=== PATIENT | female | born 1955 | race Caucasian/White ===

== ENCOUNTER 2020-07-31 09:03 | Day surgery (SDC) | payer MEDICARE, SELFPAY ==
[2020-07-26 10:23] VITALS: BMI 35.2
--- NOTE | 2020-07-26 14:30 | P.CONAN_ITS ---
Documented by User: Elizabet Corrigan 07/26/20 14:34 HPI - Anesthesia Eval Consult details Narrative: 65yo F for colonoscopy: screening PMFSH Past Medical History Medical History Anxiety CAD (coronary artery disease) Depression Elevated cholesterol History of Meniere's syndrome HTN (hypertension) Myocardial infarction On anticoagulant therapy Family History Family History (Updated 07/23/20 @ 09:13 by Rebecca Mehta, RMA, SALES PLANNING COORDINATOR) Father Mesothelioma Kidney stones Mother HTN (hypertension) Diverticulitis Brother HTN (hypertension) Daughter No problems noted. Maternal Grandfather No problems noted. Maternal Grandmother No problems noted. Paternal Grandfather No problems noted. Paternal Grandmother No problems noted. Surgical History Surgical History History of section History of superficial parotidectomy Hx of cardiac catheterization Hx of cholecystectomy Social History Social History Smoking Status: Current every day smoker Years Smoked: 10 Smoked in Last 30 Days: Yes Patient Interested in Nicotine Replacement: No Patient Given Instructions on How to Stop Smoking: No Second Hand Smoke Exposure: No Use of substances other than those prescribed or required for medical reasons: No Advance Directives Information Provided: No Recently lost weight without trying: No Meds Allergies Allergy/AdvReac Type Severity Reaction Status Date / Time oxycodone [OXYCODONE] AdvReac Intermediate SEVERE Verified 07/26/20 10:30 VOMITING Home Medications Medication Instructions Recorded Confirmed Type amlodipine 10 mg PO DAILY 07/26/20 07/26/20 History aspirin [Aspirin Low-Strength] 81 mg PO DAILY 07/26/20 07/31/20 History atorvastatin 80 mg PO DAILY 07/26/20 07/26/20 History citalopram 40 mg PO DAILY 07/26/20 07/31/20 History ezetimibe [Zetia] 10 mg PO DAILY 07/26/20 07/26/20 History ticagrelor [Brilinta] 90 mg PO BID 07/26/20 07/31/20 History Exam Exam Date and Time: July 26, 2020 1430 Height,Weight and Vital Signs: Height 5 ft 3 in Weight 90.265 kg Assessment and Plan Assessment Anesthesia Assessment: Chart Reviewed Documented by User: Ana Cristina De La Garza 07/31/20 11:15 PMFSH Past Medical History Medical History Anxiety CAD (coronary artery disease) Depression Elevated cholesterol History of Meniere's syndrome HTN (hypertension) Myocardial infarction On anticoagulant therapy Family History Family History (Updated 07/23/20 @ 09:13 by Rebecca Mehta, RMA, SALES PLANNING COORDINATOR) Father Mesothelioma Kidney stones Mother HTN (hypertension) Diverticulitis Brother HTN (hypertension) Daughter No problems noted. Maternal Grandfather No problems noted. Maternal Grandmother No problems noted. Paternal Grandfather No problems noted. Paternal Grandmother No problems noted. Family history of problems with anesthesia: No Surgical History Surgical History History of section History of superficial parotidectomy Hx of cardiac catheterization Hx of cholecystectomy History of Problems with Anesthesia: No Social History Social History Smoking Status: Current every day smoker Years Smoked: 10 Smoked in Last 30 Days: Yes Patient Interested in Nicotine Replacement: No Patient Given Instructions on How to Stop Smoking: No Second Hand Smoke Exposure: No Use of substances other than those prescribed or required for medical reasons: No Advance Directives Information Provided: No Recently lost weight without trying: No Meds Allergies Allergy/AdvReac Type Severity Reaction Status Date / Time oxycodone [OXYCODONE] AdvReac Intermediate SEVERE Verified 07/26/20 10:30 VOMITING Home Medications Medication Instructions Recorded Confirmed Type amlodipine 10 mg PO DAILY 07/26/20 07/26/20 History aspirin [Aspirin Low-Strength] 81 mg PO DAILY 07/26/20 07/31/20 History atorvastatin 80 mg PO DAILY 07/26/20 07/26/20 History citalopram 40 mg PO DAILY 07/26/20 07/31/20 History ezetimibe [Zetia] 10 mg PO DAILY 07/26/20 07/26/20 History ticagrelor [Brilinta] 90 mg PO BID 07/26/20 07/31/20 History Exam Height,Weight and Vital Signs: Vital Signs Temp Pulse Resp BP Pulse Ox 07/31/20 10:17 98.1 F 64 16 175/75 H 97 Airway Mallampati Class: II TM Dist: >3cm Neck ROM: Full Partial: Upper Heart: RRR Lungs: CTAB Assessment and Plan Assessment Anesthesia Assessment: Anesthesia Plan Discussed and Chart Reviewed Final Anesthetic Review NPO: Yes ASA Class: III Final Preanesthetic Review: No Changes in Pt Med Stat, Meds/Allgs Chart Reviewed, Consent Obtained/Reviewed and Anes Risks/Benef Reviewed Patient Risk: Intermediate Procedure Risk: Low Anesthetic Plan Anesthetic Plan: MAC: Disposition: Standard PACU
--- NOTE | 2020-07-31 | ECG_ITS ---
Test Reason : CARDIAC HX HTN Blood Pressure : / mmHG Vent. Rate : 058 BPM Atrial Rate : 058 BPM P-R Int : 176 ms QRS Dur : 086 ms QT Int : 422 ms P-R-T Axes : 027 -49 099 degrees QTc Int : 414 ms Sinus bradycardia Left anterior fascicular block Pulmonary disease pattern Nonspecific T wave abnormality Abnormal ECG When compared with ECG of 03-SEP-2016 08:37, Inverted T waves have replaced nonspecific T wave abnormality in Lateral leads Referred By: Elizabet Corrigan Electronically Signed By:KOFFI CABRALES MD
[2020-07-31] MEDS: Lactated Ringers 1,000 ML 100 ML IVCONT (10:16)
[2020-07-31 10:17] VITALS: BP 175/75; PULSE 64; RESP 16; TEMP 36.7; O2SAT 97
[2020-07-31 10:20] VITALS: BMI 35.0
--- NOTE | 2020-07-31 11:37 | PM.PROC ---
Brief Operative Note Date of procedure: 07/31/20 Pre-op diagnosis: colon cancer screening Post-op diagnosis: other (Colon polyps) Procedure: Colonoscopy with HSP x2 ERBE; Cold bx forcep excisional x2--diminutive Anesthesia: MAC (olivia Cr) Surgeon: Gita Gill Estimated blood loss (mL): 10 Pathology: other (Ascending colon polyps--4) Condition: stable Disposition: PACU
[2020-07-31 12:29] VITALS: BP 144/60; PULSE 54; RESP 12; TEMP 36.2; O2SAT 96
[2020-07-31 12:44] VITALS: BP 166/74; PULSE 54; RESP 16; O2SAT 97
[2020-07-31 13:09] VITALS: BP 148/65; PULSE 57; RESP 16; O2SAT 97
--- NOTE | 2020-08-03 11:26 | OP_ITS ---
SURGEON: Gita Gill MD PREOPERATIVE DIAGNOSIS: Screening POSTOPERATIVE DIAGNOSIS: Colonic polyps, multiple in the ascending colon. PROCEDURE PERFORMED: Colonoscopy with hot snare polypectomy x2, cold snare polypectomy x1. ESTIMATED BLOOD LOSS: Less than 10 mL. COMPLICATIONS: No complications. ANESTHESIA: Monitored. ANESTHESIOLOGIST: Roderick Cr CRNA. ASSISTANTS: No financial services assistant. SPECIMENS: 3 polyps removed from ascending colon PREOPERATIVE DIAGNOSES: The patient is a 65-year-old female, who was referred to our office in May of this year for her initial colon cancer screening. The patient has a significant underlying history of coronary artery disease. She has had stenting done. She generally takes Brilinta 90 mg twice daily. She has just recently completed a 10-day course of dexamethasone for acute L/S strain(?). FISH NET STRINGER: Dr. Gill. CONDITION: Postprocedure, stable. FINDINGS: Digital rectal exam revealed no specific lesion. Video colonoscope was introduced without difficulty and navigated through the rectosigmoid and sigmoid on up through descending, transverse, ascending colon into the cecum. Appendiceal orifice area had a limited view due to some residual fluid and fiber. significant amount of flushing and suctioning. Overall due to positioning of the polyps and the prep, the procedure itself was moderately complex. The scope was withdrawn. Anorectal verge was clear. START TIME FOR THE PROCEDURE: 11:42.AM END TIME: 12:22 p.m. The patient will be seen back in the office. 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 This will require a 5-year recall. GRAFT OR IMPLANTS: No grafts or implants. Gita Gill MD MEN/MODL / [id number] MTDPatricia
== END 2020-07-31 14:18 | disposition home or self-care (01) ==
PROVIDERS: PCP Internal Medicine; Visit Provider Internal Medicine Gastroenterology
PROC: 0DJD8ZZ Inspection of Lower Intestinal Tract, Via Natural or Artificial Opening Endoscopic (ICD-10-PCS; CPT 45378; principal; 2020-07-31 10:00)
DX: Z12.11 Encounter for screening for malignant neoplasm of colon (principal); D12.2 Benign neoplasm of ascending colon; I10 Essential (primary) hypertension; I25.10 Atherosclerotic heart disease of native coronary artery without angina pectoris; Z98.61 Coronary angioplasty status; H81.09 Meniere's disease, unspecified ear; E89.2 Postprocedural hypoparathyroidism; Z79.01 Long term (current) use of anticoagulants; Z79.82 Long term (current) use of aspirin; Z79.899 Other long term (current) drug therapy; Z90.49 Acquired absence of other specified parts of digestive tract; F17.210 Nicotine dependence, cigarettes, uncomplicated; Z88.8 Allergy status to other drugs, medicaments and biological substances
CPT/HCPCS: 45385; 88305; 93005

== ENCOUNTER → 2020-08-09 09:25 | Outpatient (BNVA) | payer MEDICARE, SELFPAY | PROVIDERS: PCP Internal Medicine; Referring Provider Internal Medicine; Visit Provider Internal Medicine Cardiovascular Disease | DX: I25.10 Atherosclerotic heart disease of native coronary artery without angina pectoris (principal); I10 Essential (primary) hypertension; Z79.82 Long term (current) use of aspirin; Z79.899 Other long term (current) drug therapy | CPT/HCPCS: 99212 ==

== ENCOUNTER → 2020-08-21 09:03 | Outpatient (BNVA) | payer MEDICARE, SELFPAY | PROVIDERS: PCP Internal Medicine; Referring Provider Internal Medicine; Visit Provider Physician Assistant | DX: D12.2 Benign neoplasm of ascending colon (principal); Z98.890 Other specified postprocedural states | CPT/HCPCS: Q3014 ==

== ENCOUNTER 2020-12-21 14:21 | Outpatient (REF) | payer MEDICARE, SELFPAY ==
[2020-12-21 16:30] LABS: MANUAL DIFF FLAG NO
[2020-12-21 16:40] LABS: Basophils Percent Auto 0.4 % (0-2); Eosinophils Absolute Auto 0.4 X10*3/uL (0.0-0.4); Eosinophils Percent Auto 4.6 % (0-4); Hematocrit 43.3 % (37-47); Hemoglobin 14.3 g/dl (12.0-16.0); Imm Gran Abs Auto 0.04 X10*3/uL (0.00-0.03); Imm Gran Pct Auto 0.5 % (0.0-0.4); Lymphocytes Absolute Auto 2.1 X10*3/uL (1.2-4.9); Lymphocytes Percent Auto 26.6 % (20-40); Mean Corpuscular Hemoglobin 28.8 pg (27.0-33.0); Mean Corpuscular Volume 87.3 fL (80-98); Mean Platelet Volume 9.7 fL (9.4-12.3); Monocytes Absolute Auto 0.4 X10*3/uL (0.1-1.2); Monocytes Percent Auto 4.5 % (2-11); Neutrophils Absolute Auto 5.1 X10*3/uL (2.0-8.3); Neutrophils Percent Auto 63.4 % (45-73); Platelet Count 239 X10*3/uL (160-400); Red Blood Count 4.96 X10*6/uL (4.20-5.50); Red Cell Distribution Width 13.2 % (11.0-16.0)
[2020-12-21 16:48] LABS: Estimated Average Glucose 108 mg/dL; Hemoglobin A1c % 5.4 %
[2020-12-21 17:16] LABS: Alanine Aminotransferase 23 U/L (0-31); Alkaline Phosphatase 40 U/L (39-117); Anion Gap 16 (12-20); Aspartate Amino Transferase 21 U/L (5-31); Bilirubin Total 0.6 mg/dL (0.0-1.0); Blood Urea Nitrogen 9 mg/dL (9-16); Calcium 9.5 mg/dL (8.4-10.2); Carbon Dioxide 26 mmol/L (22-29); Chloride 106 mmol/L (96-108); Estimated Glomerular Filt Rate > 60; Glucose Random 100 mg/dL (60-115); Potassium 3.1 mmol/L (3.3-5.1); Sodium 145 mmol/L (135-145); Total Protein 6.6 g/dL (6.5-8.0)
[2020-12-22 06:42] LABS: LDL Cholesterol Direct 93 mg/dL (<100)
== END 2020-12-21 14:22 | disposition home or self-care (01) ==
LOC: HO.HMGCLDS 14:21
PROVIDERS: PCP Internal Medicine; Visit Provider Internal Medicine
DX: I10 Essential (primary) hypertension (principal); E78.9 Disorder of lipoprotein metabolism, unspecified; F41.8 Other specified anxiety disorders; R73.03 Prediabetes
CPT/HCPCS: 36415; 80053; 83036; 83721; 85025

== ENCOUNTER → 2021-08-12 08:48 | Outpatient (BNVA) | payer MEDICARE, SELFPAY | PROVIDERS: PCP Internal Medicine; Referring Provider Internal Medicine; Visit Provider Internal Medicine Cardiovascular Disease | DX: I25.10 Atherosclerotic heart disease of native coronary artery without angina pectoris (principal); I10 Essential (primary) hypertension | CPT/HCPCS: 93005; 99212 ==

== ENCOUNTER 2022-04-15 08:38 | Outpatient (REF) | payer MEDICARE, SELFPAY ==
[2022-04-15 11:33] LABS: Basophils Percent Auto 0.4 % (0-2); Eosinophils Absolute Auto 0.5 X10*3/uL (0.0-0.4); Eosinophils Percent Auto 6.2 % (0-4); Hemoglobin 14.2 g/dl (12.0-16.0); Imm Gran Abs Auto 0.03 X10*3/uL (0.00-0.03); Imm Gran Pct Auto 0.4 % (0.0-0.4); Lymphocytes Absolute Auto 1.8 X10*3/uL (1.2-4.9); MANUAL DIFF FLAG NO; Mean Corpuscular Hemoglobin 29.3 pg (27.0-33.0); Mean Corpuscular Volume 88.7 fL (80.0-98.0); Mean Platelet Volume 9.9 fL (9.4-12.3); Monocytes Absolute Auto 0.4 X10*3/uL (0.1-1.2); Monocytes Percent Auto 5.2 % (2-11); Neutrophils Absolute Auto 5.3 x10*3/uL (2.0-8.3); Neutrophils Percent Auto 65.8 % (45-73); Platelet Count 242 X10*3/uL (160-400); Red Blood Count 4.85 X10*6/uL (4.20-5.50); Red Cell Distribution Width 13.3 % (11.0-16.0)
[2022-04-15 12:15] LABS: Alanine Aminotransferase 23 U/L (0-31); Alkaline Phosphatase 32 U/L (39-117); Anion Gap 13 (12-20); Aspartate Amino Transferase 19 U/L (5-31); Bilirubin Total 0.7 mg/dL (0.0-1.0); Blood Urea Nitrogen 13 mg/dL (9-16); Calcium 8.9 mg/dL (8.4-10.2); Carbon Dioxide 27 mmol/L (22-29); Chloride 107 mmol/L (96-108); Cholesterol 118 mg/dL; Estimated Glomerular Filt Rate > 60; Glucose Fasting 124 mg/dL (60-99); HDL Cholesterol 35 mg/dL; LDL Cholesterol Calculated 63 mg/dl; Potassium 3.7 mmol/L (3.3-5.1); Sodium 143 mmol/L (135-145); Total Protein 6.4 g/dL (6.5-8.0); Triglycerides 100 mg/dL
[2022-04-15 12:35] LABS: TSH reflex Free T4 1.49 uIU/mL (0.32-4.0)
== END 2022-04-15 08:39 | disposition home or self-care (01) ==
LOC: HO.HMGCLDS 08:38
PROVIDERS: Visit Provider Internal Medicine
DX: E66.9 Obesity, unspecified (principal); E78.9 Disorder of lipoprotein metabolism, unspecified; F41.8 Other specified anxiety disorders; I10 Essential (primary) hypertension; I25.10 Atherosclerotic heart disease of native coronary artery without angina pectoris; R73.03 Prediabetes; R40.0 Somnolence
CPT/HCPCS: 36415; 80053; 80061; 84443; 85025; 86140; 99202

== ENCOUNTER 2022-10-17 09:46 | Outpatient (REF) | payer MEDICARE, SELFPAY ==
[2022-10-17 11:59] LABS: Estimated Average Glucose 114 mg/dL; Hemoglobin A1c % 5.6 %
[2022-10-17 12:01] LABS: Alanine Aminotransferase 15 U/L (0-31); Albumin Level 3.9 g/dL (3.5-5.0); Alkaline Phosphatase 44 U/L (39-117); Anion Gap 14 (12-20); Aspartate Amino Transferase 14 U/L (5-31); Bilirubin Total 0.7 mg/dL (0.0-1.0); Blood Urea Nitrogen 11 mg/dL (9-16); Calcium 9.5 mg/dL (8.4-10.2); Carbon Dioxide 26 mmol/L (22-29); Chloride 107 mmol/L (96-108); Estimated Glomerular Filt Rate > 60; Glucose Random 119 mg/dL (60-115); Potassium 3.5 mmol/L (3.3-5.1); Sodium 143 mmol/L (135-145); Total Protein 6.2 g/dL (6.5-8.0)
== END 2022-10-17 09:47 | disposition home or self-care (01) ==
LOC: HO.HMGCLDS 09:46
PROVIDERS: Internal Medicine; PCP Internal Medicine; Visit Provider Internal Medicine
DX: E66.9 Obesity, unspecified (principal); E78.9 Disorder of lipoprotein metabolism, unspecified; I10 Essential (primary) hypertension; R73.03 Prediabetes
CPT/HCPCS: 36415; 80053; 83036

== ENCOUNTER 2022-10-20 13:41 | Outpatient (REF) | payer MEDICARE, SELFPAY ==
[2022-10-25 03:18] LABS: HPV mRNA E6/E7 rflx Not Detected (Not Detected)
== END 2022-10-20 13:42 | disposition home or self-care (01) ==
LOC: HO.LNP 13:41
PROVIDERS: PCP Internal Medicine; Visit Provider Obstetrics & Gynecology
DX: Z01.419 Encounter for gynecological examination (general) (routine) without abnormal findings (principal); Z11.51 Encounter for screening for human papillomavirus (HPV)
CPT/HCPCS: 87624; 88142

== ENCOUNTER 2022-10-29 08:40 | Outpatient (REF) | payer MEDICARE, SELFPAY ==
--- NOTE | ~2022-10-29 | MM_ITS ---
EXAMINATION: BONE DENSITOMETRY CLINICAL INDICATION: Asymptomatic menopausal state. COMPARISON: This is the patient's baseline examination. TECHNIQUE: Using a [employer] DXA System (software version: 13.1) manufactured by [employer], dual-energy x-ray absorptiometry was performed of the lumbar spine and left hip. The images are of good technical quality. Summary results are attached. FINDINGS: AP SPINE L1-L4: BMD 1.361 g/cm2, Z-score 3.1, T-score 1.5, normal. LEFT FEMUR, NECK: BMD 0.862 g/cm2, Z-score 0.3, T-score -1.3, osteopenia. LEFT FEMUR, TOTAL: BMD 1.069 g/cm2, Z-score 1.8, T-score 0.5, normal. IDENTIFIED RISK FACTORS: Parental hip fracture. Menopause. Current smoker. HISTORY OF FRACTURE: None listed. MEDICATIONS: None listed. MM/XR DEXA axial skeleton IMPRESSION: 1. DIAGNOSIS: Osteopenia based on the lowest T-score value of -1.3 in the femoral neck applying World Health Organization criteria. 2. 10-YEAR FRACTURE RISK PREDICTION, FRAX: Major osteoporotic fracture (clinical spine, forearm, hip or shoulder) 15.5%. Hip fracture 2.9%. 3. Treatment Recommendations: NOF guidelines recommend consideration for treatment in postmenopausal women and men age 50 and older presenting with the following: -A hip or vertebral (clinical or morphometric) fracture. -T-score less than or equal to -2.5 at the femoral neck or spine after appropriate evaluation to exclude secondary causes. -Low bone mass at the hip or spine and a 10-year fracture probability by FRAX of greater than or equal to 3% for hip fracture or greater than or equal to 20% for major osteoporotic fracture based on the [place] adapted WHO algorithm. 4. Other Recommendations: All treatment decisions require clinical judgment and consideration of individual patient factors, including patient preferences, comorbidities, previous drug use, risk factors not captured in the FRAX model (e.g. frailty, falls, vitamin D deficiency, increased bone turnover, interval significant decline in bone density) and possible under or overestimation of fracture risk by FRAX. Additional medical evaluation for secondary cause of low bone mineral density may be appropriate. FUTURE SCAN RECOMMENDATION: People with diagnosed cases of osteoporosis or at high risk for fracture should have regular bone mineral density tests. For patients eligible for Medicare, routine testing is allowed once every 2 years. The testing frequency can be increased to one year for patients who have rapidly progressing disease, those who are receiving or discontinuing medical therapy to restore bone mass, or have additional risk factors.
== END 2022-10-29 08:41 | disposition home or self-care (01) ==
LOC: HO.MAMMO 08:40
PROVIDERS: PCP Internal Medicine; Visit Provider Obstetrics & Gynecology
DX: Z13.820 Encounter for screening for osteoporosis (principal); Z78.0 Asymptomatic menopausal state
CPT/HCPCS: 77080

== ENCOUNTER 2022-11-11 12:40 | Outpatient (REF) | payer MEDICARE, SELFPAY | END 2022-11-11 12:41 | disposition home or self-care (01) | LOC: HO.LNP 12:40 | PROVIDERS: PCP Internal Medicine; Visit Provider Obstetrics & Gynecology | DX: L91.8 Other hypertrophic disorders of the skin (principal); M85.80 Other specified disorders of bone density and structure, unspecified site | CPT/HCPCS: 11200; 56605; 88304; 99212 ==

== ENCOUNTER 2023-04-21 10:58 | Outpatient (AMB) | payer MEDICARE, SELFPAY ==
--- NOTE | 2023-04-21 12:05 | AM.OFFWIN_ITS ---
Intake Vital Signs 04/21/23 12:06 BP 124/70 Blood Pressure Location Lt brachial Position Sitting Pulse 82 Pulse Source Pulse Oximeter Temp 97.6 F Temp Source Temporal Artery Scan Pulse Oximetry (%) 97 Oxygen Delivery Method Room Air Intake Visit Reasons: EP lump on back of ear Intake Note: Pt is here c/o lump on the back of her left ear. Patient Tobacco Use Status: Former Tobacco user Allergies oxycodone [OXYCODONE] Adverse Reaction (Intermediate, Verified 11/11/22 13:00) SEVERE VOMITING Do you need a note to return to daycare/school/sports/work: No HPI EP lump on back of ear HPI Details Patient presents with 2 concerns. The 1st being a tender mass of the posterior left ear which has been present for 2-3 days. She denies fever, chills, symptoms of illness, sore throat, dysphagia, ear pain or drainage. The 2nd issue is a mass in the AC fossa of her right arm which developed after having a blood draw few months ago. She was told to ice it initially however it did not shrink in size. It is nontender it is not grown since and there is no distal vascular changes. [facility], [facility] Medical History Anxiety CAD (coronary artery disease) Depression Elevated cholesterol History of Meniere's syndrome HTN (hypertension) Myocardial infarction On anticoagulant therapy Skin lesion Surgical History History of section History of colonoscopy History of superficial parotidectomy Hx of cholecystectomy Stented coronary artery Family History Father Mesothelioma Kidney stones Mother HTN (hypertension) Diverticulitis Brother HTN (hypertension) Daughter No problems noted. Maternal Grandfather No problems noted. Maternal Grandmother No problems noted. Paternal Grandfather No problems noted. Paternal Grandmother No problems noted. Other Mental health disorder Social History Housing: House Alcohol intake: current Alcohol intake frequency: holidays/special occasions only Patient Tobacco Use Status: Former Tobacco user Tobacco use type: Cigarette Cigarette Packs Per Day: 3 Years Smoked: 10 e-Cigarette/Vaping Use: Never Used Second Hand Smoke Exposure: No service: No Current occupational status: retired Cognitive needs: No Hearing needs: No Vision needs: No Female Reproductive History Menstrual Age of Menarche: 10 Review of Systems Const Reports as per HPI and Reports no additional complaints ENT Reports no additional complaints and Reports as per HPI Card Reports as per HPI and Reports no additional complaints Resp Reports as per HPI and Reports no additional complaints GI Reports as per HPI and Reports no additional complaints Musc Reports no additional complaints and Reports as per HPI Skin/Breast Denies lesions Neuro Reports no additional complaints and Reports as per HPI Physical Exam Vital Signs: Last Vital Signs Temp 97.6 F 04/21/23 12:06 Pulse 82 04/21/23 12:06 BP 124/70 04/21/23 12:06 Pulse Ox 97 04/21/23 12:06 Oxygen Delivery Method Room Air 04/21/23 12:06 Const General: cooperative, comfortable and no acute distress Orientation/consciousness: patient oriented x3 HEENT Head: Yes normal to inspection Ears: hearing grossly normal bilaterally, TM's normal bilaterally, EAC's normal and other (1 cm firm tender area posterior to the ear. No rubor calor or noted pore) General nose exam: Normal external nose present Face and sinus: Yes normal facial exam and Yes sinuses nontender Mouth: Normal oral and palatal mucosa present Throat: Yes posterior oropharynx normal Neck Other: No other adenopathy noted Neck: Yes full ROM, Yes supple and No anterior neck swelling Resp Effort & Inspection: normal respiratory effort Auscultation: clear to auscultation bilaterally Cardio Rate: regular rate Rhythm: regular rhythm Heart sounds: S1 normal heart sound present and S2 normal heart sound present Neuro General: patient oriented x3 Extrem Other: 2 cm rubbery non mobile mass in the right AC fossa nontender no rubor calor General: Yes full ROM, Yes capillary refill normal and Yes normal exam except as noted Assessment & Plan Assessment & Plan (1) Mass of right upper extremity: Code(s): R22.31 - Localized swelling, mass and lump, right upper limb Plan: Mass seems to be vascular in nature question possible hematoma given it occurred immediately after blood draw. Refer to general surgery for eval and possible definitive treatment. (2) Pain of left mastoid: Code(s): H92.02 - Otalgia, left ear Plan: Trial course of antibiotic and can also apply warm compresses. Return to clinic if symptoms do not improve or worsen may need imaging to rule out adenopathy versus abscess. Orders: Referrals General Surgery Referral R22.31 - Localized swelling, mass and lump, right upper limb Medications: New amoxicillin-pot clavulanate 875-125 mg 1 tab PO Q12H 10 days 20 tabs 0RF Coding Level of Care Code Est Pt Level 3 (32195) Diagnoses Mass of right upper extremity R22.31 Pain of left mastoid H92.02
[2023-04-21 12:06] VITALS: BP 124/70; PULSE 82; TEMP 36.4; O2SAT 97
== END 2023-04-21 12:37 | disposition home or self-care (01) ==
PROVIDERS: PCP Internal Medicine; Visit Provider Physician Assistant
DX: R22.31 Localized swelling, mass and lump, right upper limb (principal); H92.02 Otalgia, left ear
CPT/HCPCS: 99213

== ENCOUNTER 2023-05-05 11:22 | Outpatient (AMB) | payer MEDICARE, SELFPAY ==
--- NOTE | 2023-05-05 11:23 | MHC.OFFVIS ---
Intake Vital Signs 05/05/23 11:30 Height 5 ft 3 in Weight 186 lb 2 oz BMI 33.0 BP 133/61 Blood Pressure Location Lt brachial Position Sitting Pulse 80 Intake Visit Reasons: Localized swelling, mass right upper limb Intake Note: Patient is seen in office for evaluation and treatment of a mass right upper limb. Patient c/o: onset for a couple of months, had a blood drawn and since has a lump in the area, denies redness, discharge, pain or other concerns Data Center Solutions Architect Required: No Accompanied by: Self / Same As Patient Allergies oxycodone [OXYCODONE] Adverse Reaction (Intermediate, Verified 05/05/23 11:29) SEVERE VOMITING Medication List - Last Reconciled 05/05/23 by Francis Car MD amlodipine 10 mg PO DAILY 90 days aspirin (Ecotrin Low Strength) 81 mg PO DAILY 90 days atorvastatin 80 mg PO DAILY 90 days citalopram 40 mg PO DAILY ezetimibe 10 mg PO DAILY HPI HPI Comments History of Present Illness Details 67-year-old female patient presenting with an area of swelling in the antecubital fossa right side which developed soon after having a vena puncture. Lesion is been gradually decreasing in size but has not completely resolved. She denies any pain associated with the lesion. She presents today for further evaluation and management. [facility] Medical History Anxiety CAD (coronary artery disease) Depression Elevated cholesterol History of Meniere's syndrome HTN (hypertension) Myocardial infarction On anticoagulant therapy Skin lesion Surgical History History of section History of colonoscopy History of superficial parotidectomy Hx of cholecystectomy Stented coronary artery Family History Father Mesothelioma Kidney stones Mother HTN (hypertension) Diverticulitis Brother HTN (hypertension) Daughter No problems noted. Maternal Grandfather No problems noted. Maternal Grandmother No problems noted. Paternal Grandfather No problems noted. Paternal Grandmother No problems noted. Other Mental health disorder Social History Housing: House Alcohol intake: current Alcohol intake frequency: holidays/special occasions only Patient Tobacco Use Status: Former Tobacco user Tobacco use type: Cigarette Cigarette Packs Per Day: 3 Years Smoked: 10 e-Cigarette/Vaping Use: Never Used Second Hand Smoke Exposure: No service: No Current occupational status: retired Cognitive needs: No Hearing needs: No Vision needs: No Female Reproductive History Menstrual Age of Menarche: 10 Review of Systems Const All systems reviewed & are unremarkable except as noted in HPI and below Denies chills, Denies fever(s), Denies headache(s), Denies poor appetite and Denies weakness ENT Denies headache(s) Card Denies chest pain, Denies irregular heart rhythm, Denies palpitations and Denies dyspnea Resp Denies cough, Denies excessive phlegm production and Denies dyspnea GI Denies abdominal pain, Denies bloating, Denies change in bowel habits, Denies constipation, Denies heartburn, Denies diarrhea, Denies nausea and Denies vomiting Denies urinary frequency Musc Denies back pain, Denies muscle weakness and Denies numbness Skin/Breast Reports as per HPI, Denies changing lesions and Denies unusual bruising Neuro Denies headache(s), Denies numbness, Denies paresthesias and Denies weakness Psych Denies anxiety and Denies depression Endo Denies palpitations Ricardo/Lymph Denies lymphadenopathy Physical Exam Vital Signs: Last Vital Signs Pulse 80 05/05/23 11:30 BP 133/61 05/05/23 11:30 BMI result Body Mass Index 33.0 Const General: cooperative and no acute distress Nutritional Appearance: well nourished Orientation/consciousness: patient oriented x3 Limitations: no limitations HEENT Head: Yes normocephalic and Yes atraumatic Ears: hearing grossly normal bilaterally Resp Effort & Inspection: normal respiratory effort, no audible wheezes, no cough and no respiratory distress Cardio Jugular venous distension: no JVD GI Inspection: Yes normal to inspection Skin Other: Warm, dry, no rash Neuro General: patient oriented x3 Extrem General: Yes no clubbing, cyanosis or edema Elbow/forearm/wrist images: 1. 3.5 x 2 cm lump in the lower antecubital fossa, noncompressible, non pulsatile. Suggestive of a hematoma. No bluish discoloration Assessment & Plan Assessment & Plan (1) Hematoma of arm: Code(s): S40.029A - Contusion of unspecified upper arm, initial encounter Plan 67-year-old female patient presenting with a persistent palpable mass in the right antecubital fossa following a vena puncture. On examination the lesion is firm, noncompressible and nonpulsatile. Findings are suggestive of either a hematoma or a venous pseudoaneurysm. I recommended further evaluation with an ultrasound. If the lesion is indeed a hematoma this would be amenable to evacuation however if the pseudoaneurysm is identified, referral to vascular surgery will be arranged. Orders: Orders US venous duplex UE RT Today S40.029A - Contusion of unspecified upper arm, initial encounter Coding Level of Care Code New Pt Level 4 (46347) Diagnoses Hematoma of arm S40.029A
[2023-05-05 11:30] VITALS: BP 133/61; PULSE 80; BMI 33.0
== END 2023-05-05 11:34 | disposition home or self-care (01) ==
PROVIDERS: PCP Internal Medicine; Referring Provider Physician Assistant; Visit Provider Surgery
DX: S40.021A Contusion of right upper arm, initial encounter (principal)
CPT/HCPCS: 99203

== ENCOUNTER → 2023-05-05 11:22 | Outpatient (BNVA) | payer MEDICARE, SELFPAY | PROVIDERS: PCP Internal Medicine; Referring Provider Physician Assistant; Visit Provider Surgery ==

== ENCOUNTER 2023-05-18 11:18 | Outpatient (REF) | payer MEDICARE, SELFPAY ==
--- NOTE | ~2023-05-18 | US_ITS ---
EXAMINATION: US VENOUS WITH DOPPLER UPPER EXTREMITY, RIGHT CLINICAL INFORMATION: Right upper extremity swelling. COMPARISON: None available. TECHNIQUE: Ultrasound of the upper extremity is performed using compression sonography and color and pulse Doppler flow with assessment of augmentation of flow. There is also imaging and Doppler assessment of the jugular and subclavian veins. Spectral analysis with color-flow imaging is performed. FINDINGS: Respiratory variation, normal compression, and augmented flow are noted throughout the upper extremity including the axillary, brachial, cubital, and radial and ulnar veins. There is normal flow in the internal jugular and subclavian veins. There is no visible deep or superficial thrombophlebitis. A subcutaneous anechoic collection is seen in the right antecubital fossa measuring approximately 6.0 x 1.9 x 2.7 cm. Color Doppler showed no abnormal vascular flow. This appears to surround the biceps tendon that appears intact. US/US venous duplex UE RT IMPRESSION: 1. No evidence for deep venous thrombosis in the visualized veins of the right upper extremity. 2. Right antecubital fossa anechoic collection is nonspecific, but demonstrates benign features. This could represent a resolving hematoma or seroma. Correlate with physical exam. If these findings persist or enlarge, short-term repeat targeted soft tissue ultrasound can be performed as clinically indicated to assess for change.
== END 2023-05-18 11:19 | disposition home or self-care (01) ==
LOC: HO.HMGCX 11:18
PROVIDERS: PCP Internal Medicine; Visit Provider Surgery
DX: S40.021A Contusion of right upper arm, initial encounter (principal); M79.89 Other specified soft tissue disorders
CPT/HCPCS: 93971

== ENCOUNTER 2023-06-30 10:43 | Outpatient (REF) | payer MEDICARE, SELFPAY | END 2023-06-30 10:44 | disposition home or self-care (01) | LOC: HO.MAMMO 10:43 | PROVIDERS: PCP Internal Medicine; Visit Provider Internal Medicine | DX: Z12.31 Encounter for screening mammogram for malignant neoplasm of breast (principal) | CPT/HCPCS: 77063; 77067 ==

== ENCOUNTER → 2023-06-30 11:00 | Outpatient (BNV) | payer MEDICARE, SELFPAY | PROVIDERS: PCP Internal Medicine; Visit Provider Radiology Diagnostic Radiology | DX: Z12.31 Encounter for screening mammogram for malignant neoplasm of breast (principal) | CPT/HCPCS: 77063; 77067 ==

== ENCOUNTER 2023-08-21 13:26 | Outpatient (AMB) | payer MEDICARE, SELFPAY ==
--- NOTE | 2023-08-21 13:28 | MHC.PC.OV ---
Vital Signs 08/21/23 13:36 Height 5 ft 3 in Weight 183 lb BMI 32.4 BP 144/86 H Blood Pressure Location Rt brachial Position Sitting Pulse 85 Pulse Source Pulse Oximeter Pulse Oximetry (%) 95 Oxygen Delivery Method Room Air Intake Visit Reasons: Med review CX 4 month f/u in February Allergies oxycodone [OXYCODONE] Adverse Reaction (Intermediate, Verified 05/05/23 11:29) SEVERE VOMITING Medication List - Last Reconciled 08/21/23 by Gela Patel MD amlodipine 10 mg PO DAILY 90 days aspirin (Ecotrin Low Strength) 81 mg PO DAILY 90 days atorvastatin 80 mg PO DAILY 90 days citalopram 40 mg PO DAILY ezetimibe 10 mg PO DAILY Tobacco use date assessed: 06/24/22 [facility] Med review CX 4 month f/u in February HPI Details Patient is 68-year-old female who was last seen October this Today she is complaining of cold intolerance the past few weeks Ordered TSH level, ferritin level along with Henderson and vitamin levels. She is also due for rest of the labs, to be done fasting She is taking atorvastatin 80 mg, explained to patient that it is important she gets labs done every 4 months and have regular follow-up appointments. If the appointment is not book from this office she should call us to book the appointment. We must monitor side effect of the medications before we can prescribe them. Blood pressure is elevated today she is on amlodipine 10 mg, she is monitoring it at home patient says that it is running around 130 systolic at home. Depression is stable patient is taking citalopram 40 mg BMI is elevated at 32.4 patient is having difficulty losing weight. Follow-up 4 months for physical exam. [facility] Medical History Skin lesion HTN (hypertension) CAD (coronary artery disease) On anticoagulant therapy History of Meniere's syndrome Anxiety Depression Elevated cholesterol Myocardial infarction Surgical History History of colonoscopy Stented coronary artery Hx of cholecystectomy History of superficial parotidectomy History of section Family History Father Mesothelioma Kidney stones Mother HTN (hypertension) Diverticulitis Brother HTN (hypertension) Daughter No problems noted. Maternal Grandfather No problems noted. Maternal Grandmother No problems noted. Paternal Grandfather No problems noted. Paternal Grandmother No problems noted. Other Mental health disorder Social History Housing: House Alcohol intake: current Alcohol intake frequency: holidays/special occasions only Patient Tobacco Use Status: Former Tobacco user Tobacco use type: Cigarette Cigarette Packs Per Day: 3 Years Smoked: 10 e-Cigarette/Vaping Use: Never Used Second Hand Smoke Exposure: No service: No Current occupational status: retired Cognitive needs: No Hearing needs: No Vision needs: No Female Reproductive History Menstrual Age of Menarche: 10 Questionnaire PHQ-9 Over the last 2 weeks, how often have you been bothered by any of the following problems? 1. Little interest or pleasure in doing things: not at all 2. Feeling down, depressed, or hopeless: not at all 3. Trouble falling or staying asleep, or sleeping too much: not at all 4. Feeling tired or having little energy: not at all 5. Poor appetite or overeating: not at all 6. Feeling bad about yourself - or that you are a failure or have let yourself or your family down: not at all 7. Trouble concentrating on things, such as reading the newspaper or watching television: not at all 8. Moving or speaking so slowly that other people could have noticed. Or the opposite - being so fidgety or restless that you have been moving around a lot more than usual: not at all 9. Thoughts that you would be better off or of hurting yourself in some way: not at all Total score: 0 Depression Screening Interpretation: Negative Depression Screening Done: Yes 59710 - PHQ-9 Billing: Yes Source: Developed by Drs. Abad Manuel, Chetna Boudreaux, Dominic Pena and colleagues, with an educational carol from [employer]. Thrive Questionnaire Date Thrive assessed: 08/21/23 I am a: Patient What is your living situation today?: I have a steady place to live Within the past 12 months, did the food you bought not last and you didn't have the money to get more?: Never true Within the past 12 months, did you worry whether your food would run out before you got money to buy more?: Never true Do you have trouble paying for medicines?: No Do you have trouble getting transportation to medical appointments?: No Do you have trouble paying your heating and electricity bill?: No Do you have trouble taking care of your child, family member or friend?: No Do you have trouble with day-to-day activities such as bathing, preparing meals, shopping, managing finances, etc.?: No Are you currently unemployed and looking for a job?: No Are you interested in more education?: No Please select the resources that you would like help with: None Currently or been in a relationship where the following occur: no concerns reported IRVIN-7 AMB Questionnaire IRVIN-7 Date IRVIN - 7 assessed: 08/21/23 Feeling nervous, anxious, or on edge: 0 = Not at all Not being able to stop or control worryin = Not at all Worrying too much about different things: 0 = Not at all Trouble relaxin = Not at all Being so restless that it is hard to sit still: 0 = Not at all Becoming easily annoyed or irritable: 0 = Not at all Feeling afraid as if something awful might happen: 0 = Not at all Total IRVIN-7 score (0-4 normal; 5-9 mild; 10-14 moderate; 15-21 severe): 0 Source: Developed by Drs. Abad Manuel, Chetna Boudreaux, Dominic Pena and colleagues, with an educational carol from [employer]. IRVIN-7 Assessment Billing IRVIN-7 Assessment Tool: IRVIN-7 Assessment 46228 Review of Systems Const Denies chills and Denies fever(s) ENT Denies epistaxis and Denies nasal discharge Card Denies chest pain Resp Denies chest congestion, Denies cough and Denies hemoptysis GI Denies diarrhea and Denies nausea Skin/Breast Denies rash Neuro Reports no additional complaints Psych Reports no additional complaints Endo Reports no additional complaints Physical exam (Primary Care) Vital Signs: Last Vital Signs Pulse 85 08/21/23 13:36 BP 144/86 H 08/21/23 13:36 Pulse Ox 95 08/21/23 13:36 Oxygen Delivery Method Room Air 08/21/23 13:36 BMI result Body Mass Index 32.4 Tobacco/Smoking Status: Tobacco use Status Tobacco use date assessed 06/24/22 08/21/23 13:29 Patient Tobacco Use Status Former Tobacco user 08/21/23 13:29 Tobacco use type Cigarette 08/21/23 13:29 e-Cigarette/Vaping Use Never Used 08/21/23 13:29 Depression Screening Interpretation: Negative Thrive Assessment: Date of Thrive Assessment Date Thrive assessed 12/24/21 08/21/23 13:29 Currently or been in a relationship where the following occur: no concerns reported Const General: cooperative, comfortable and no acute distress Orientation/consciousness: patient oriented x3 HENMT Head: Yes normocephalic Eyes General: appearance normal, both eyes and all related structures Neck Neck: Yes supple Resp Effort & Inspection: normal respiratory effort, no cough and no stridor Cardio Rhythm: regular rhythm Heart sounds: S1 normal heart sound present and S2 normal heart sound present Skin General skin exam: turgor normal Neuro General: patient oriented x3, tone normal and moves all extremities Extrem Right lower extremity: no edema Left lower extremity: no edema Assessment and Plan Assessment & Plan (1) HTN (hypertension): Code(s): I10 - Essential (primary) hypertension Qualifiers: Hypertension type: primary hypertension Qualified Code(s): I10 - Essential (primary) hypertension (2) CAD (coronary artery disease): Code(s): I25.10 - Atherosclerotic heart disease of [place] coronary artery without angina pectoris Qualifiers: Associated angina: without angina Coronary Disease-Associated Artery/Lesion type: [place] artery [place] vs. transplanted heart: [place] heart Qualified Code(s): I25.10 - Atherosclerotic heart disease of [place] coronary artery without angina pectoris (3) Pre-diabetes: Code(s): R73.03 - Prediabetes (4) Major depression, recurrent: Code(s): F33.9 - Major depressive disorder, recurrent, unspecified Qualifiers: Active/Remission status: in full remission Qualified Code(s): F33.42 - Major depressive disorder, recurrent, in full remission (5) Obesity due to excess calories: Code(s): E66.09 - Other obesity due to excess calories Qualifiers: Body mass index: BMI 35.0-35.9 Obesity classification: adult class 2 (BMI 35 - 39.9) Serious obesity comorbidity presence: with serious comorbidity Qualified Code(s): E66.01 - Morbid (severe) obesity due to excess calories; Z68.35 - Body mass index [BMI] 35.0-35.9, adult (6) Lipid disorder: Code(s): E78.9 - Disorder of lipoprotein metabolism, unspecified (7) Cold intolerance: Code(s): R68.89 - Other general symptoms and signs Plan Patient is 68-year-old female who was last seen Rebecca this Today she is complaining of cold intolerance the past few weeks Ordered TSH level, ferritin level along with Henderson and vitamin levels. She is also due for rest of the labs, to be done fasting She is taking atorvastatin 80 mg, explained to patient that it is important she gets labs done every 4 months and have regular follow-up appointments. If the appointment is not book from this office she should call us to book the appointment. We must monitor side effect of the medications before we can prescribe them. Blood pressure is elevated today she is on amlodipine 10 mg, she is monitoring it at home patient says that it is running around 130 systolic at home. Depression is stable patient is taking citalopram 40 mg BMI is elevated at 32.4 patient is having difficulty losing weight. Patient is prediabetic as well Follow-up 4 months for physical exam. Orders: Orders Lipid Panel Today E66.09 - Other obesity due to excess calories, E78.9 - Disorder of lipoprotein metabolism, unspecified, F33.9 - Major depressive disorder, recurrent, unspecified, I10 - Essential (primary) hypertension, I25.10 - Atherosclerotic heart disease of [place] coronary artery without angina pectoris, R73.03 - Prediabetes TSH reflex Free T4 Today E66.09 - Other obesity due to excess calories, E78.9 - Disorder of lipoprotein metabolism, unspecified, F33.9 - Major depressive disorder, recurrent, unspecified, I10 - Essential (primary) hypertension, I25.10 - Atherosclerotic heart disease of [place] coronary artery without angina pectoris, R73.03 - Prediabetes Ferritin Today R68.89 - Other general symptoms and signs Complete Blood Count Auto Diff Today E66.09 - Other obesity due to excess calories, E78.9 - Disorder of lipoprotein metabolism, unspecified, F33.9 - Major depressive disorder, recurrent, unspecified, I10 - Essential (primary) hypertension, I25.10 - Atherosclerotic heart disease of [place] coronary artery without angina pectoris, R73.03 - Prediabetes Comprehensive [place]. Panel Fast Today E66.09 - Other obesity due to excess calories, E78.9 - Disorder of lipoprotein metabolism, unspecified, F33.9 - Major depressive disorder, recurrent, unspecified, I10 - Essential (primary) hypertension, I25.10 - Atherosclerotic heart disease of [place] coronary artery without angina pectoris, R73.03 - Prediabetes Vitamin D 25-OH (D2 and D3) Today R68.89 - Other general symptoms and signs Vitamin B12 Today R68.89 - Other general symptoms and signs Zinc Today R68.89 - Other general symptoms and signs Medications: Refilled aspirin (Ecotrin Low Strength) 81 mg PO DAILY 90 tabs 3RF 90 days atorvastatin 80 mg PO DAILY 90 tabs 0RF 90 days E78.9 - Disorder of lipoprotein metabolism, unspecified citalopram 40 mg PO DAILY 90 tabs 0RF amlodipine 10 mg PO DAILY 90 tabs 0RF 90 days I10 - Essential (primary) hypertension ezetimibe 10 mg PO DAILY 90 tabs 0RF Coding Level of Care Code Est Pt Level 4 (14857) Diagnoses Primary hypertension I10 Hypertension type: primary hypertension Coronary artery disease involving [place] coronary artery of [place] heart without angina pectoris I25.10 Associated angina: without angina Coronary Disease-Associated Artery/Lesion type: [place] artery [place] vs. transplanted heart: [place] heart Pre-diabetes R73.03 Recurrent major depressive disorder, in full remission F33.42 Active/Remission status: in full remission Class 2 severe obesity due to excess calories with serious comorbidity and body mass index (BMI) of 35.0 to 35.9 in adult E66.01; Z68.35 Body mass index: BMI 35.0-35.9 Obesity classification: adult class 2 (BMI 35 - 39.9) Serious obesity comorbidity presence: with serious comorbidity Lipid disorder E78.9 Cold intolerance R68.89 Additional Codes IRVIN-7 Assessment Billing - IRVIN-7 Assessment Tool: IRVIN-7 Assessment 89240 ([id number])
[2023-08-21 13:36] VITALS: BP 144/86; PULSE 85; O2SAT 95; BMI 32.4
== END 2023-08-21 13:59 | disposition home or self-care (01) ==
PROVIDERS: PCP Internal Medicine; Visit Provider Internal Medicine
DX: I10 Essential (primary) hypertension (principal); F33.42 Major depressive disorder, recurrent, in full remission; E66.01 Morbid (severe) obesity due to excess calories; Z68.35 Body mass index [BMI] 35.0-35.9, adult; I25.10 Atherosclerotic heart disease of native coronary artery without angina pectoris; R73.03 Prediabetes; E78.9 Disorder of lipoprotein metabolism, unspecified; R68.89 Other general symptoms and signs
CPT/HCPCS: 99214

== ENCOUNTER 2024-02-04 08:44 | Outpatient (AMB) | payer MEDICARE, SELFPAY ==
--- NOTE | 2024-02-04 09:10 | A.OFFVIS_ITS ---
Vital Signs 02/04/24 09:11 Height 5 ft 3 in Weight 193 lb 1.999 oz BMI 34.2 BP 144/80 H Blood Pressure Location Lt brachial Position Sitting Pulse 65 Pulse Source Monitor Intake Visit Reasons: OVER DUE F/U HEART PALPITATIONS Technology Coach Required: No Allergies oxycodone [OXYCODONE] Adverse Reaction (Intermediate, Verified 02/04/24 09:12) SEVERE VOMITING Medication List - Last Reconciled 02/04/24 by Sheridan Dinero NP-C amlodipine 10 mg PO DAILY 90 days aspirin (Ecotrin Low Strength) 81 mg PO DAILY 90 days atorvastatin 80 mg PO DAILY 90 days citalopram 40 mg PO DAILY ezetimibe 10 mg PO DAILY HPI HPI OVER DUE F/U HEART PALPITATIONS: Details: Concepción is a 68-year-old female with past medical history of hypertension, hyperlipidemia, CAD with prior PCI to the OM and diagonal who presents with report of heart palpitations. Her last prior visit to our office was 08/12/2021. Today she reports that she has been experiencing some panic attacks recently. S he has medication for this but does not feel that it is helping. When she gets an attack she can feel her heart beating very rapidly and things closing in like she may pass out. She has not had any syncope, falls. She does not notice heart palpitations at other times. No chest discomfort at rest or with activity. She has some mild shortness of breath with exertion. She smokes 2 packs of cigarettes per week. No PND, orthopnea or edema. Taking meds as directed. [facility] Medical History (Updated 02/04/24 @ 10:16 by TEMI Colbert) Skin lesion HTN (hypertension) CAD (coronary artery disease) On anticoagulant therapy History of Meniere's syndrome Anxiety Depression Elevated cholesterol Myocardial infarction Surgical History (Updated 02/04/24 @ 10:16 by MANDA ColbertC) History of colonoscopy Stented coronary artery Hx of cholecystectomy History of superficial parotidectomy History of section Family History Father Mesothelioma Kidney stones Mother HTN (hypertension) Diverticulitis Brother HTN (hypertension) Daughter No problems noted. Maternal Grandfather No problems noted. Maternal Grandmother No problems noted. Paternal Grandfather No problems noted. Paternal Grandmother No problems noted. Other Mental health disorder Social History Housing: House Alcohol intake: current Alcohol intake frequency: holidays/special occasions only Patient Tobacco Use Status: Former Tobacco user Tobacco use type: Cigarette Cigarette Packs Per Day: 3 Years Smoked: 10 e-Cigarette/Vaping Use: Never Used Second Hand Smoke Exposure: No service: No Current occupational status: retired Cognitive needs: No Hearing needs: No Vision needs: No Female Reproductive History Menstrual Age of Menarche: 10 Review of Systems Const Details: has geen getting panic attacks All systems reviewed & are unremarkable except as noted in HPI and below ENT Denies dizziness Card Denies chest pain, Denies chest pain at rest, Denies chest pain with activity, Reports rapid heart rate, Denies pedal edema, Denies edema, Denies leg edema, Denies lightheadedness, Denies palpitations, Denies dyspnea, Denies dyspnea on exertion and Denies orthopnea Resp Denies cough, Denies dyspnea and Denies dyspnea on exertion GI Denies hematochezia and Denies change in stool character Musc Denies abnormal gait, Denies limited range of motion, Denies muscle cramps, Denies muscle weakness, Denies numbness, Denies radiating pain into limb, Denies stiffness and Denies tingling Neuro Denies abnormal gait, Denies dizziness, Denies numbness and Denies tingling Endo Denies palpitations Physical Exam Vital Signs: Last Vital Signs Pulse 65 02/04/24 09:11 BP 144/80 H 02/04/24 09:11 BMI result Body Mass Index 34.2 Const General: cooperative, healthy appearing, comfortable and no acute distress Orientation/consciousness: patient oriented x3 Neck Neck: Yes normal visual inspection Resp Effort & Inspection: normal respiratory effort Auscultation: clear to auscultation bilaterally, no rales, no rhonchi and no wheezes Cardio Jugular venous distension: no JVD Rate: regular rate Rhythm: regular rhythm Heart sounds: S1 normal heart sound present, S2 normal heart sound present, no murmurs and no rubs Neuro General: patient oriented x3 Extrem General: Yes normal to inspection, No no pedal edema and No calf tenderness Psych Appearance: grossly normal Mental Status: mental status grossly normal Speech and movement: Normal speech and movement present Office Procedures EKG Details: Normal sinus rhythm, left anterior fascicular block, rate 65, septal Q, QTC 457 millisecond [id number], Complete Assessment & Plan Assessment & Plan (1) CAD (coronary artery disease): Code(s): I25.10 - Atherosclerotic heart disease of [place] coronary artery without angina pectoris Category: Medical Qualifiers: Coronary Disease-Associated Artery/Lesion type: [place] artery [place] vs. transplanted heart: [place] heart Associated angina: without angina Qualified Code(s): I25.10 - Atherosclerotic heart disease of [place] coronary artery without angina pectoris Plan: History of CAD. Prior PCI to the OM and diagonal. She has been on aspirin indefinitely. She is on high-dose atorvastatin and Zetia. She is on amlodipine for blood pressure control. Last prior visit 08/12/2021. At this time she denies having anginal sounding symptoms. She is noticing some heart palpitations when she has what she describes as a panic attack. An EKG done today shows sinus rhythm with left anterior fascicular block, septal Q-wave, ra te 65. Will check an echocardiogram to assess EF, wall motion. Will check a Holter monitor to assess for any arrhythmia. Informed her discuss panic attacks with her PCP. Cardiology follow-up in 4-6 weeks to go over results. Emergency care if needed for symptoms. (2) Stented coronary artery: Comment: status post stenting of the OM and diagonal branch in August 2016 for ACS Code(s): Z95.5 - Presence of coronary angioplasty implant and graft Category: Surgical Plan: As above (3) Palpitation: Code(s): R00.2 - Palpitations Category: Medical Plan: As above (4) HTN (hypertension): Code(s): I10 - Essential (primary) hypertension Category: Medical Qualifiers: Hypertension type: primary hypertension Qualified Code(s): I10 - Essential (primary) hypertension Plan: Mild elevation today. Patient reports some mild anxiety. Continue amlodipine 10 mg daily. Blood pressure will be rechecked at next visit (5) Elevated cholesterol: Code(s): E78.00 - Pure hypercholesterolemia, unspecified Category: Medical Plan: [place] LDL goal less than 70. Last labs in our system 04/15/2022 showed LDL 63. She has been on high-dose atorvastatin and Zetia. She tells me she has an upcoming PCP visit and will request that updated labs be done. (6) Smoker: Code(s): F17.200 - Nicotine dependence, unspecified, uncomplicated Category: Social Hx Plan: Smoking 2 packs per week. Benefits of smoking reduction and cessation reviewed with her. She states full understanding and will continue to work on this. Plan Time spent on chart review, documentation, interview and assessment Orders: Orders CA echo transthorac moreno w con Today I25.10 - Atherosclerotic heart disease of [place] coronary artery without angina pectoris, R00.2 - Palpitations, Z95.5 - Presence of coronary angioplasty implant and graft ECG 3 day holter monitor Today R00.2 - Palpitations Coding Level of Care Code Est Pt Level 4 (01101) Diagnoses Coronary artery disease involving [place] coronary artery of [place] heart without angina pectoris I25.10 Coronary Disease-Associated Artery/Lesion type: [place] artery [place] vs. transplanted heart: [place] heart Associated angina: without angina Stented coronary artery Z95.5 Palpitation R00.2 Primary hypertension I10 Hypertension type: primary hypertension Elevated cholesterol E78.00 Smoker F17.200 CPT Codes EKG - CPT: 63361-[id number], Complete ([id number]) Time Spent (min) 28
[2024-02-04 09:11] VITALS: BP 144/80; PULSE 65; BMI 34.2
== END 2024-02-04 09:33 | disposition home or self-care (01) ==
PROVIDERS: PCP Internal Medicine; Visit Provider Nurse Practitioner Family
DX: I25.10 Atherosclerotic heart disease of native coronary artery without angina pectoris (principal); Z95.5 Presence of coronary angioplasty implant and graft; R00.2 Palpitations; I10 Essential (primary) hypertension; E78.00 Pure hypercholesterolemia, unspecified; F17.200 Nicotine dependence, unspecified, uncomplicated
CPT/HCPCS: 93010; 99214

== ENCOUNTER → 2024-02-04 08:44 | Outpatient (BNVA) | payer MEDICARE, SELFPAY | PROVIDERS: PCP Internal Medicine; Visit Provider Nurse Practitioner Family | DX: I25.10 Atherosclerotic heart disease of native coronary artery without angina pectoris (principal); I10 Essential (primary) hypertension; R00.2 Palpitations; E78.00 Pure hypercholesterolemia, unspecified; F17.210 Nicotine dependence, cigarettes, uncomplicated; Z95.5 Presence of coronary angioplasty implant and graft | CPT/HCPCS: 93005; 99212 ==

== ENCOUNTER → 2024-03-10 12:42 | Outpatient (REF) | payer MEDICARE, SELFPAY ==
--- NOTE | 2024-03-10 12:47 | HM_ITS ---
Conclusion: 1. Patient was monitored for total period of 3 days 2. Baseline was normal sinus rhythm with average heart of 68 beats per minute 3. No significant pauses noted 4. Occasional PVCs noted 5. Patient marked 1 event correlating with sinus rhythm MTDD
--- NOTE | 2024-03-10 12:47 | CA_ITS ---
Transthoracic Echocardiogram Patient (Last, First, Middle): Concepcóin Dupree R Gender: Female Date of : 1955 Age: 68 Procedure Date: 03/10/2024 Procedure Type: Transthoracic Echocardiogram Location: OP Height: 160.02 cm Weight: 83.92 kg BSA: 1.87 m2 Heart Rate: bpm BP: 140 / 76 mmHg Hot Kettle Tender: TO Referring MD: Sheridan Dinero [employer] MEMBER[employer]omo Cigarette Maker: Umesh Bird MD Symptoms: R00.2 - Palpitations Study Quality: Fair/Contrast ECG Rhythm: Sinus Conclusions: - Normal LV ejection fraction 60-65% with grade 1 diastolic dysfunction Findings Procedure Information Contrast agent, definity, is being given per protocol without apparent complications. Left Ventricle Normal left ventricular size, thickness, and systolic function. The visually estimated ejection fraction is between 60-65%. Spectral Doppler is indicative of an impaired relaxation filling pattern. E/E prime ratio is <8, consistent with normal filling pressures. Evidence suggests grade I (mild) diastolic dysfunction. There is mild septal asymmetric hypertrophy. Measurements 2D Linear Measurements IVSd: 1.22 0.6-0.9/0.6-1.0 cm LVIDd: 4.29 3.9-5.3/4.2-5.9 cm LVIDd Index: 2.29 2.4-3.2/2.2-3.1 cm/m2 LVIDs: 3.11 2.0-3.6 cm LVPWd: 1.01 0.7-1.1 cm LV Mass: 206.14 67-162/88-224 g LV Mass Index: 110.24 43-95/49-115 g/m2 LVOT Diam: 2.10 3.0+(-)1.3 cm 2D Systolic Function EF 4C: 62.20 >55% EF 2C: 57.50 >55% EF BiP: 59.70 >55% Mitral Valve MV Pk E: 0.49 MV PK A: 0.92 MV Decel Time: 226.00 E/A: 0.50 E'Lateral: 7.07 E'Medial: 6.09 E/E' Med: 8.00 E/E' Lat: 6.90 PHT: 66.00 MVA PHT: 3.33 Decel [place]: 2.16 LVOT LVOT Pk Alexey: 0.84 LVOT Mn Alexey: 0.59 LVOT VTI: 0.17 LVOT Pk Grad: 3.00 LVOT Mn Grad: 2.00 LVOT Diam: 2.10 LVOT Area: 3.46 Diastolic Function MV Pk E: 0.49 MV Pk A: 0.92 E/A: 0.50 E'Medial: 6.09 E/E' Med: 8.00 E' Laterial: 7.07 E/E' Lat: 6.90 Tricuspid Valve RA Press: 3.00 Updated in Other Vendor System with Status of Final Umesh Bird MD electronically signed on 03/10/2024 2:33:27 PM with status of Final
== END ==
LOC: HO.CARD 12:42
PROVIDERS: PCP Internal Medicine; Visit Provider Nurse Practitioner Family
DX: R00.2 Palpitations (principal); I25.10 Atherosclerotic heart disease of native coronary artery without angina pectoris; Z95.5 Presence of coronary angioplasty implant and graft
CPT/HCPCS: 93242; 93308; Q9957

== ENCOUNTER → 2024-03-10 12:47 | Outpatient (BNV) | payer MEDICARE, SELFPAY | PROVIDERS: PCP Internal Medicine; Visit Provider Internal Medicine Cardiovascular Disease | DX: I49.3 Ventricular premature depolarization (principal) | CPT/HCPCS: 93244; 93308; 93321 ==

== ENCOUNTER 2024-03-17 13:26 | Outpatient (AMB) | payer MEDICARE, SELFPAY ==
[2024-03-17 13:28] VITALS: BP 152/80; PULSE 83; BMI 34.1
--- NOTE | 2024-03-17 13:28 | A.OFFVIS_ITS ---
Vital Signs 03/17/24 13:28 Height 5 ft 3 in Weight 192 lb 10.944 oz BMI 34.1 BP 152/80 H Blood Pressure Location Lt brachial Position Sitting Pulse 83 Pulse Source Pulse Oximeter Intake Visit Reasons: 6 wk follow up/ echo/ holter Facilities Maintenance Manager Required: No Allergies oxycodone [OXYCODONE] Adverse Reaction (Intermediate, Verified 03/17/24 13:30) SEVERE VOMITING Medication List - Last Reconciled 03/18/24 by Sheridan Dinero NP-C amlodipine 10 mg PO DAILY 90 days aspirin (Ecotrin Low Strength) 81 mg PO DAILY 90 days atorvastatin 80 mg PO DAILY 90 days citalopram 40 mg PO DAILY ezetimibe 10 mg PO DAILY HPI HPI 6 wk follow up/ echo/ holter: Details: Concepción is a 68-year-old female with past medical history of hypertension, hyperlipidemia, CAD with prior PCI to the OM and diagonal who reported heart palpitations and underwent an echocardiogram and Holter monitor and now presents for follow-up. Today she reports that she has been having less heart palpitations then what was previously reported. She relates some of this to panic attacks. When she gets an attack she can feel her heart beating very rapidly and things closing in like she may pass out. She has not had any syncope, falls. She does not notice heart palpitations at other times. No chest discomfort at rest or with activity. She has some mild shortness of breath with exertion. She smokes 2 packs of cigarettes per week. No PND, orthopnea or edema. Taking meds as directed. [facility] Medical History Skin lesion HTN (hypertension) CAD (coronary artery disease) On anticoagulant therapy History of Meniere's syndrome Anxiety Depression Elevated cholesterol Myocardial infarction Surgical History History of colonoscopy Stented coronary artery Hx of cholecystectomy History of superficial parotidectomy History of section Family History Father Mesothelioma Kidney stones Mother HTN (hypertension) Diverticulitis Brother HTN (hypertension) Daughter No problems noted. Maternal Grandfather No problems noted. Maternal Grandmother No problems noted. Paternal Grandfather No problems noted. Paternal Grandmother No problems noted. Other Mental health disorder Social History Housing: House Alcohol intake: current Alcohol intake frequency: holidays/special occasions only Patient Tobacco Use Status: Former Tobacco user Tobacco use type: Cigarette Cigarette Packs Per Day: 3 Years Smoked: 10 e-Cigarette/Vaping Use: Never Used Second Hand Smoke Exposure: No service: No Current occupational status: retired Cognitive needs: No Hearing needs: No Vision needs: No Female Reproductive History Menstrual Age of Menarche: 10 Review of Systems Const All systems reviewed & are unremarkable except as noted in HPI and below ENT Denies dizziness Card Details: occassional heart palpitations Denies chest pain, Denies chest pain at rest, Denies chest pain with activity, Denies rapid heart rate, Denies pedal edema, Denies edema, Denies leg edema, Denies lightheadedness, Denies palpitations, Denies dyspnea, Denies dyspnea on exertion and Denies orthopnea Resp Denies cough, Denies dyspnea and Denies dyspnea on exertion GI Denies hematochezia and Denies change in stool character Musc Denies abnormal gait, Denies limited range of motion, Denies muscle cramps, Denies muscle weakness, Denies numbness, Denies radiating pain into limb, Denies stiffness and Denies tingling Neuro Denies abnormal gait, Denies dizziness, Denies numbness and Denies tingling Endo Denies palpitations Physical Exam Vital Signs: Last Vital Signs Pulse 83 03/17/24 13:28 BP 152/80 H 03/17/24 13:28 BMI result Body Mass Index 34.1 Const General: cooperative, healthy appearing, comfortable and no acute distress Orientation/consciousness: patient oriented x3 Neck Neck: Yes normal visual inspection Resp Effort & Inspection: normal respiratory effort Auscultation: clear to auscultation bilaterally, no rales, no rhonchi and no wheezes Cardio Jugular venous distension: no JVD Rate: regular rate Rhythm: regular rhythm Heart sounds: S1 normal heart sound present, S2 normal heart sound present, no murmurs and no rubs Neuro General: patient oriented x3 Extrem General: Yes normal to inspection, No no pedal edema and No calf tenderness Psych Appearance: grossly normal Mental Status: mental status grossly normal Speech and movement: Normal speech and movement present Assessment & Plan Assessment & Plan (1) Palpitation: Code(s): R00.2 - Palpitations Category: Medical Plan: She is reporting heart palpitations that occur when having feelings like a panic attack. An EKG done last visit shows sinus rhythm with left anterior fascicular block, septal Q-wave, rate 65. Echocardiogram done 03/10/2024 shows EF 60-65%, grade 1 diastolic dysfunction. Holter monitor done 03/10/2024 for 3 days shows sinus rhythm with average heart rate 68, occasional PVCs, symptoms correlated with sinus rhythm. Test results reviewed with her in detail. Offered reassurance. She tells me her palpitations have lessened. Informed her discuss panic attacks with her PCP. Cardiology follow-up 1 year, sooner if needed (2) CAD (coronary artery disease): Code(s): I25.10 - Atherosclerotic heart disease of [place] coronary artery without angina pectoris Category: Medical Qualifiers: Associated angina: without angina Coronary Disease-Associated Artery/Lesion type: [place] artery [place] vs. transplanted heart: [place] heart Qualified Code(s): I25.10 - Atherosclerotic heart disease of [place] coronary artery without angina pectoris Plan: History of CAD. Prior PCI to the OM and diagonal. She has been on aspirin indefinitely. She is on high-dose atorvastatin and Zetia. She is on amlodipine for blood pressure control. She was not seen in the office between 08/12/2021 and 02/04/2024. At this time she denies having anginal sounding symptoms. Blood pressure initially elevated this visit and improved on recheck. Continue current med management. Reviewed low-salt diet, need for good blood pressure and cholesterol control, weight loss, exercise as tolerated. Emergency care if ever needed for symptoms. (3) Stented coronary artery: Comment: status post stenting of the OM and diagonal branch in August 2016 for ACS Code(s): Z95.5 - Presence of coronary angioplasty implant and graft Category: Surgical Plan: As above (4) HTN (hypertension): Code(s): I10 - Essential (primary) hypertension Category: Medical Qualifiers: Hypertension type: primary hypertension Qualified Code(s): I10 - Essential (primary) hypertension Plan: Mild elevation today. Recheck done by me 140/72. Patient reports some mild anxiety in the office. She has an upcoming appointment with her PCP. Blood pressure can be rechecked at that time. If blood pressure remains elevated additional antihypertensive agent recommended. With her pre diabetes would recommend use of Mihir/Arb. Continue amlodipine 10 mg daily. (5) Elevated cholesterol: Code(s): E78.00 - Pure hypercholesterolemia, unspecified Category: Medical Plan: [place] LDL goal less than 70. Last labs in our system 04/15/2022 showed LDL 63. She has been on high-dose atorvastatin and Zetia. She tells me she has an upcoming PCP visit and will request that updated labs be done. (6) Smoker: Code(s): F17.200 - Nicotine dependence, unspecified, uncomplicated Category: Social Hx Plan: Smoking 2 packs per week. Benefits of smoking reduction and cessation reviewed with her. She states full understanding and will continue to work on this. Plan Time spent on chart review, documentation, interview and assessment Coding Level of Care Code Est Pt Level 4 (51112) Diagnoses Palpitation R00.2 Coronary artery disease involving [place] coronary artery of [place] heart without angina pectoris I25.10 Associated angina: without angina Coronary Disease-Associated Artery/Lesion type: [place] artery [place] vs. transplanted heart: [place] heart Stented coronary artery Z95.5 Primary hypertension I10 Hypertension type: primary hypertension Elevated cholesterol E78.00 Smoker F17.200 Time Spent (min) 28
== END 2024-03-17 13:57 | disposition home or self-care (01) ==
PROVIDERS: PCP Internal Medicine; Visit Provider Nurse Practitioner Family
DX: R00.2 Palpitations (principal); I25.10 Atherosclerotic heart disease of native coronary artery without angina pectoris; Z95.5 Presence of coronary angioplasty implant and graft; I10 Essential (primary) hypertension; E78.00 Pure hypercholesterolemia, unspecified; F17.200 Nicotine dependence, unspecified, uncomplicated
CPT/HCPCS: 99214

== ENCOUNTER → 2024-03-17 13:26 | Outpatient (BNVA) | payer MEDICARE, SELFPAY | PROVIDERS: PCP Internal Medicine; Visit Provider Nurse Practitioner Family | DX: R00.2 Palpitations (principal); I25.10 Atherosclerotic heart disease of native coronary artery without angina pectoris; I10 Essential (primary) hypertension; E78.00 Pure hypercholesterolemia, unspecified; F17.210 Nicotine dependence, cigarettes, uncomplicated; Z95.5 Presence of coronary angioplasty implant and graft | CPT/HCPCS: 99212 ==

== ENCOUNTER 2024-04-20 13:46 | Outpatient (AMB) | payer MEDICARE, SELFPAY ==
[2024-04-20 13:49] VITALS: BP 140/86; PULSE 85; O2SAT 97; BMI 34.5
--- NOTE | 2024-04-20 13:49 | MHC.PC.OV ---
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 Required: No Accompanied by: Self / Same As Patient Allergies oxycodone [OXYCODONE] Adverse Reaction (Intermediate, Verified 04/20/24 13:49) SEVERE VOMITING Medication List - Last Reconciled 04/20/24 by Gela Patel MD aspirin (Ecotrin Low Strength) 81 mg PO DAILY 90 days atorvastatin 80 mg PO DAILY 90 days citalopram 40 mg PO DAILY ezetimibe 10 mg PO DAILY Tobacco use date assessed: 04/20/24 Fall risk assessment: No Falls in past year Last assessed Fall Risk: 04/20/24 Dental Screening Dental Screen Date: 04/20/24 Did you have a dental visit in the last 12 months?: Yes Did you have a dental problem in the last 6 months where you did not have access to dental care?: No Was dental information given to patient?: Patient has dentist HPI 8 Month F/U HPI Details Patient is 68-year-old female came in today for her regular follow-up appointment Patient has been seeing real estate teacher as she continued to have palpitations She had extended Holter monitor done, would reviewed Patient have occasional PVCs without any symptoms Her blood pressure is 140/86 it was elevated in March as well She is on amlodipine 10 mg I am stopping that Instead I am starting her on atenolol 50 mg daily Patient is to monitor her blood pressure at home and get back to me in 2 weeks with blood pressure readings. She is also due for labs, to be done fasting Continue atorvastatin 80 mg daily Depression is stable patient is taking citalopram 40 mg BMI is elevated , patient is aware and is trying to lose weight Patient is prediabetic as well Follow-up 3 months [facility] Medical History Skin lesion HTN (hypertension) CAD (coronary artery disease) On anticoagulant therapy History of Meniere's syndrome Anxiety Depression Elevated cholesterol Myocardial infarction Surgical History History of colonoscopy Stented coronary artery Hx of cholecystectomy History of superficial parotidectomy History of section Family History Father Mesothelioma Kidney stones Mother HTN (hypertension) Diverticulitis Brother HTN (hypertension) Daughter No problems noted. Maternal Grandfather No problems noted. Maternal Grandmother No problems noted. Paternal Grandfather No problems noted. Paternal Grandmother No problems noted. Other Mental health disorder Social History Housing: House Alcohol intake: current Alcohol intake frequency: holidays/special occasions only Patient Tobacco Use Status: Current everyday Tobacco user Tobacco use type: Cigarette Cigarettes Per Day: 2 Years Smoked: 10 Packs Per Year: 30 Packs per year/per ci.00 e-Cigarette/Vaping Use: Never Used Second Hand Smoke Exposure: No service: No Current occupational status: retired Cognitive needs: No Hearing needs: No Vision needs: No Female Reproductive History Menstrual Age of Menarche: 10 Questionnaire PHQ-9 Over the last 2 weeks, how often have you been bothered by any of the following problems? 1. Little interest or pleasure in doing things: not at all 2. Feeling down, depressed, or hopeless: not at all 3. Trouble falling or staying asleep, or sleeping too much: not at all 4. Feeling tired or having little energy: not at all 5. Poor appetite or overeating: not at all 6. Feeling bad about yourself - or that you are a failure or have let yourself or your family down: not at all 7. Trouble concentrating on things, such as reading the newspaper or watching television: not at all 8. Moving or speaking so slowly that other people could have noticed. Or the opposite - being so fidgety or restless that you have been moving around a lot more than usual: not at all 9. Thoughts that you would be better off or of hurting yourself in some way: not at all Total score: 0 Depression Screening Interpretation: Negative Depression Screening Done: Yes 52603 - PHQ-9 Billing: Yes Source: Developed by Drs. Abad Manuel, Chetna Boudreaux, Dominic Pena and colleagues, with an educational carol from [employer]. Thrive Questionnaire Date Thrive assessed: 04/20/24 I am a: Patient What is your living situation today?: I have a steady place to live Within the past 12 months, did the food you bought not last and you didn't have the money to get more?: Never true Within the past 12 months, did you worry whether your food would run out before you got money to buy more?: Never true Do you have trouble paying for medicines?: No Do you have trouble getting transportation to medical appointments?: No Do you have trouble paying your heating and electricity bill?: No Do you have trouble taking care of your child, family member or friend?: No Do you have trouble with day-to-day activities such as bathing, preparing meals, shopping, managing finances, etc.?: No Are you currently unemployed and looking for a job?: No Are you interested in more education?: No Please select the resources that you would like help with: Housing/Retirement Currently or been in a relationship where the following occur: No concerns reported THRIVE Score: 0 AUDIT C Alcohol Use Questionnaire (AUDIT-C) 1. How often do you have a drink containing alcohol?: Monthly or less 2. How many drinks containing alcohol do you have on a typical day when you are drinking?: 1 or 2 3. How often do you have six or more drinks on one occasion?: Never Total Score: 1 Score Reviewed/Action Taken: Yes IRVIN-7 AMB Questionnaire IRVIN-7 Date IRVIN - 7 assessed: 04/20/24 Feeling nervous, anxious, or on edge: 1 = Several days Not being able to stop or control worryin = Several days Worrying too much about different things: 1 = Several days Trouble relaxin = Several days Being so restless that it is hard to sit still: 0 = Not at all Becoming easily annoyed or irritable: 0 = Not at all Feeling afraid as if something awful might happen: 1 = Several days Total IRVIN-7 score (0-4 normal; 5-9 mild; 10-14 moderate; 15-21 severe): 5 Source: Developed by Drs. Abad Manuel, Chetna Boudreaux, Dominic Pena and colleagues, with an educational carol from [employer] IRVIN-7 Assessment Billing IRVIN-7 Assessment Tool: IRVIN-7 Assessment 71443 Review of Systems Const Denies chills and Denies fever(s) ENT Denies epistaxis and Denies nasal discharge Card Denies chest pain Resp Denies chest congestion, Denies cough and Denies hemoptysis GI Denies diarrhea and Denies nausea Skin/Breast Denies rash Neuro Reports no additional complaints Psych Reports no additional complaints Endo Reports no additional complaints Physical exam (Primary Care) Vital Signs: Last Vital Signs Pulse 85 04/20/24 13:49 BP 140/86 H 04/20/24 13:49 Pulse Ox 97 04/20/24 13:49 BMI result Body Mass Index 34.5 Tobacco/Smoking Status: Tobacco use Status Tobacco use date assessed 04/20/24 04/20/24 13:51 Patient Tobacco Use Status Current everyday Tobacco 04/20/24 13:54 Tobacco use type Cigarette 04/20/24 13:51 e-Cigarette/Vaping Use Never Used 04/20/24 13:51 PHQ-9: PHQ-9 Score PHQ-9: Total score 0 04/20/24 13:51 Depression Screening Interpretation: Negative Thrive Assessment: Date of Thrive Assessment Date Thrive assessed 04/20/24 04/20/24 13:51 Currently or been in a relationship where the following occur: No concerns reported Const General: cooperative, comfortable and no acute distress Orientation/consciousness: patient oriented x3 HENMT Head: Yes normocephalic Eyes General: appearance normal, both eyes and all related structures Neck Neck: Yes supple Resp Effort & Inspection: normal respiratory effort, no cough and no stridor Cardio Rhythm: regular rhythm Heart sounds: S1 normal heart sound present and S2 normal heart sound present Skin General skin exam: turgor normal Neuro General: patient oriented x3, tone normal and moves all extremities Extrem Right lower extremity: no edema Left lower extremity: no edema Assessment and Plan Assessment & Plan (1) HTN (hypertension): Code(s): I10 - Essential (primary) hypertension Qualifiers: Hypertension type: primary hypertension Qualified Code(s): I10 - Essential (primary) hypertension (2) CAD (coronary artery disease): Code(s): I25.10 - Atherosclerotic heart disease of [place] coronary artery without angina pectoris Qualifiers: Coronary Disease-Associated Artery/Lesion type: [place] artery [place] vs. transplanted heart: [place] heart Associated angina: without angina Qualified Code(s): I25.10 - Atherosclerotic heart disease of [place] coronary artery without angina pectoris (3) Pre-diabetes: Code(s): R73.03 - Prediabetes (4) Major depression, recurrent: Code(s): F33.9 - Major depressive disorder, recurrent, unspecified Qualifiers: Active/Remission status: in full remission Qualified Code(s): F33.42 - Major depressive disorder, recurrent, in full remission (5) Obesity due to excess calories: Code(s): E66.09 - Other obesity due to excess calories Qualifiers: Obesity classification: adult class 2 (BMI 35 - 39.9) Serious obesity comorbidity presence: with serious comorbidity Body mass index: BMI 35.0-35.9 Qualified Code(s): E66.01 - Morbid (severe) obesity due to excess calories; Z68.35 - Body mass index [BMI] 35.0-35.9, adult (6) Lipid disorder: Code(s): E78.9 - Disorder of lipoprotein metabolism, unspecified (7) Palpitation: Code(s): R00.2 - Palpitations Plan Patient is 68-year-old female came in today for her regular follow-up appointment Patient has been seeing real estate teacher as she continued to have palpitations She had extended Holter monitor done, would reviewed Patient have occasional PVCs without any symptoms Her blood pressure is 140/86 it was elevated in March as well She is on amlodipine 10 mg I am stopping that Instead I am starting her on atenolol 50 mg daily Patient is to monitor her blood pressure at home and get back to me in 2 weeks with blood pressure readings. She is also due for labs, to be done fasting Continue atorvastatin 80 mg daily Depression is stable patient is taking citalopram 40 mg BMI is elevated , patient is aware and is trying to lose weight Patient is prediabetic as well Follow-up 3 months Medications: New atenolol 50 mg PO DAILY 30 tabs 0RF Coding Level of Care Code Est Pt Level 4 (56594) Complex EM visit Add On G2211 Diagnoses Primary hypertension I10 Hypertension type: primary hypertension Coronary artery disease involving [place] coronary artery of [place] heart without angina pectoris I25.10 Coronary Disease-Associated Artery/Lesion type: [place] artery [place] vs. transplanted heart: [place] heart Associated angina: without angina Pre-diabetes R73.03 Recurrent major depressive disorder, in full remission F33.42 Active/Remission status: in full remission Class 2 severe obesity due to excess calories with serious comorbidity and body mass index (BMI) of 35.0 to 35.9 in adult E66.01; Z68.35 Obesity classification: adult class 2 (BMI 35 - 39.9) Serious obesity comorbidity presence: with serious comorbidity Body mass index: BMI 35.0-35.9 Lipid disorder E78.9 Palpitation R00.2 Additional Codes IRVIN-7 Assessment Billing - IRVIN-7 Assessment Tool: IRVIN-7 Assessment [id number] ([id number])
== END 2024-04-20 14:16 | disposition home or self-care (01) ==
PROVIDERS: PCP Internal Medicine; Visit Provider Internal Medicine
DX: I10 Essential (primary) hypertension (principal); F33.42 Major depressive disorder, recurrent, in full remission; E66.01 Morbid (severe) obesity due to excess calories; Z68.35 Body mass index [BMI] 35.0-35.9, adult; I25.10 Atherosclerotic heart disease of native coronary artery without angina pectoris; R73.03 Prediabetes; E78.9 Disorder of lipoprotein metabolism, unspecified; R00.2 Palpitations
CPT/HCPCS: 99214; G2211

== ENCOUNTER 2024-07-19 08:52 | Outpatient (AMB) | payer MEDICARE, SELFPAY ==
[2024-07-19 08:54] VITALS: BP 138/82; PULSE 84; O2SAT 99; BMI 33.9
--- NOTE | 2024-07-19 08:54 | A.OFFPC_ITS ---
Vital Signs 07/19/24 08:54 Height 5 ft 3 in Weight 191 lb 4 oz BMI 33.9 BP 138/82 Blood Pressure Location Lt brachial Position Sitting Pulse 84 Pulse Source Pulse Oximeter Pulse Oximetry (%) 99 Oxygen Delivery Method Room Air Intake Visit Reasons: 3 Month F/U Allergies oxycodone [OXYCODONE] Adverse Reaction (Intermediate, Verified 07/19/24 08:54) SEVERE VOMITING Medication List - Last Reconciled 07/19/24 by Gela Patel MD aspirin (Ecotrin Low Strength) 81 mg PO DAILY 90 days atenolol 50 mg PO DAILY atorvastatin 80 mg PO DAILY 90 days citalopram 40 mg PO DAILY ezetimibe 10 mg PO DAILY Tobacco use date assessed: 07/19/24 Fall risk assessment: No Falls in past year Last assessed Fall Risk: 07/19/24 Dental Screening Dental Screen Date: 04/20/24 HPI 3 Month F/U HPI Details Patient is 69-year-old female came in today for her regular follow-up appointment Labs are needed which still has not been done, reminded patient 1 more time It is important that we do labs at least every 6 months to keep an eye on side effects on medication 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 Seeing them q.6 months Hypertension: Patient is on atenolol 50 mg daily Continue atorvastatin 80 mg daily for lipid control Depression is stable patient is taking citalopram 40 mg BMI is elevated , patient is aware and is trying to lose weight Patient is prediabetic as well Has appointment for physical exam in September [facility] Medical History Skin lesion HTN (hypertension) CAD (coronary artery disease) On anticoagulant therapy History of Meniere's syndrome Anxiety Depression Elevated cholesterol Myocardial infarction Surgical History History of colonoscopy Stented coronary artery Hx of cholecystectomy History of superficial parotidectomy History of section Family History Father Mesothelioma Kidney stones Mother HTN (hypertension) Diverticulitis Brother HTN (hypertension) Daughter No problems noted. Maternal Grandfather No problems noted. Maternal Grandmother No problems noted. Paternal Grandfather No problems noted. Paternal Grandmother No problems noted. Other Mental health disorder Social History Housing: House Alcohol intake: current Alcohol intake frequency: holidays/special occasions only Patient Tobacco Use Status: Current everyday Tobacco user Tobacco use type: Cigarette Cigarettes Per Day: 2 Years Smoked: 10 e-Cigarette/Vaping Use: Never Used Second Hand Smoke Exposure: No service: No Current occupational status: retired Cognitive needs: No Hearing needs: No Vision needs: No Female Reproductive History Menstrual Age of Menarche: 10 Questionnaire Thrive Questionnaire Date Thrive assessed: 07/19/24 I am a: Patient What is your living situation today?: I have a steady place to live Within the past 12 months, did the food you bought not last and you didn't have the money to get more?: Never true Within the past 12 months, did you worry whether your food would run out before you got money to buy more?: Never true Do you have trouble paying for medicines?: No Do you have trouble getting transportation to medical appointments?: No Do you have trouble paying your heating and electricity bill?: No Do you have trouble taking care of your child, family member or friend?: No Do you have trouble with day-to-day activities such as bathing, preparing meals, shopping, managing finances, etc.?: No Are you currently unemployed and looking for a job?: No Are you interested in more education?: No Please select the resources that you would like help with: None Currently or been in a relationship where the following occur: No concerns reported THRIVE Score: 0 AUDIT C Alcohol Use Questionnaire (AUDIT-C) 1. How often do you have a drink containing alcohol?: Monthly or less 2. How many drinks containing alcohol do you have on a typical day when you are drinking?: 1 or 2 3. How often do you have six or more drinks on one occasion?: Never Total Score: 1 Score Reviewed/Action Taken: Yes IRVIN-7 AMB Questionnaire IRVIN-7 Date IRVIN - 7 assessed: 04/20/24 Source: Developed by Drs. Abad Manuel, Chetna Boudreaux, Dominic Pena and colleagues, with an educational carol from [employer]. Review of Systems Const Denies chills and Denies fever(s) ENT Denies epistaxis and Denies nasal discharge Card Denies chest pain Resp Denies chest congestion, Denies cough and Denies hemoptysis GI Denies diarrhea and Denies nausea Skin/Breast Denies rash Neuro Reports no additional complaints Psych Reports no additional complaints Endo Reports no additional complaints Physical exam (Primary Care) Vital Signs: Last Vital Signs Pulse 84 07/19/24 08:54 BP 138/82 07/19/24 08:54 Pulse Ox 99 07/19/24 08:54 Oxygen Delivery Method Room Air 07/19/24 08:54 BMI result Body Mass Index 33.9 Tobacco/Smoking Status: Tobacco use Status Tobacco use date assessed 07/19/24 07/19/24 08:55 Patient Tobacco Use Status Current everyday Tobacco 07/19/24 08:55 Tobacco use type Cigarette 07/19/24 08:55 e-Cigarette/Vaping Use Never Used 07/19/24 08:55 Thrive Assessment: Date of Thrive Assessment Date Thrive assessed 07/19/24 07/19/24 08:55 Currently or been in a relationship where the following occur: No concerns reported Const General: cooperative, comfortable and no acute distress Orientation/consciousness: patient oriented x3 HENMT Head: Yes normocephalic Eyes General: appearance normal, both eyes and all related structures Neck Neck: Yes supple Resp Effort & Inspection: normal respiratory effort, no cough and no stridor Cardio Rhythm: regular rhythm Heart sounds: S1 normal heart sound present and S2 normal heart sound present Skin General skin exam: turgor normal Neuro General: patient oriented x3, tone normal and moves all extremities Extrem Right lower extremity: no edema Left lower extremity: no edema Coding Level of Care Code Est Pt Level 4 (86193) Complex EM visit Add On G2211 Diagnoses Primary hypertension I10 Hypertension type: primary hypertension Recurrent major depressive disorder, in full remission F33.42 Active/Remission status: in full remission Coronary artery disease involving [place] coronary artery of [place] heart without angina pectoris I25.10 Associated angina: without angina Coronary Disease-Associated Artery/Lesion type: [place] artery [place] vs. transplanted heart: [place] heart Lipid disorder E78.9 Pre-diabetes R73.03 Obesity (BMI 30.0-34.9) E66.9 Assessment & Plan Assessment & Plan (1) HTN (hypertension): Code(s): I10 - Essential (primary) hypertension Category: Medical Qualifiers: Hypertension type: primary hypertension Qualified Code(s): I10 - Essential (primary) hypertension (2) Major depression, recurrent: Code(s): F33.9 - Major depressive disorder, recurrent, unspecified Category: Medical Qualifiers: Active/Remission status: in full remission Qualified Code(s): F33.42 - Major depressive disorder, recurrent, in full remission (3) CAD (coronary artery disease): Code(s): I25.10 - Atherosclerotic heart disease of [place] coronary artery without angina pectoris Category: Medical Qualifiers: Associated angina: without angina Coronary Disease-Associated Artery/Lesion type: [place] artery [place] vs. transplanted heart: [place] heart Qualified Code(s): I25.10 - Atherosclerotic heart disease of [place] coronary artery without angina pectoris (4) Lipid disorder: Code(s): E78.9 - Disorder of lipoprotein metabolism, unspecified Category: Medical (5) Pre-diabetes: Code(s): R73.03 - Prediabetes Category: Medical (6) Obesity (BMI 30.0-34.9): Code(s): E66.9 - Obesity, unspecified Category: Medical Plan Patient is 69-year-old female came in today for her regular follow-up appointment Labs are needed which still has not been done, reminded patient 1 more time It is important that we do labs at least every 6 months to keep an eye on side effects on medication 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 Seeing them q.6 months Hypertension: Patient is on atenolol 50 mg daily Continue atorvastatin 80 mg daily for lipid control Depression is stable patient is taking citalopram 40 mg BMI is elevated , patient is aware and is trying to lose weight Patient is prediabetic as well Has appointment for physical exam in September Orders: Orders Complete Blood Count Auto Diff Today E66.9 - Obesity, unspecified, E78.9 - Disorder of lipoprotein metabolism, unspecified, I10 - Essential (primary) hypertension, I25.10 - Atherosclerotic heart disease of [place] coronary artery without angina pectoris, R73.03 - Prediabetes Comprehensive Met. Panel Today E66.9 - Obesity, unspecified, E78.9 - Disorder of lipoprotein metabolism, unspecified, I10 - Essential (primary) hypertension, I25.10 - Atherosclerotic heart disease of [place] coronary artery without angina pectoris, R73.03 - Prediabetes LDL Cholesterol Direct Today E66.9 - Obesity, unspecified, E78.9 - Disorder of lipoprotein metabolism, unspecified, I10 - Essential (primary) hypertension, I25.10 - Atherosclerotic heart disease of [place] coronary artery without angina pectoris, R73.03 - Prediabetes Vitamin D 25-OH (D2 and D3) Today E66.9 - Obesity, unspecified, E78.9 - Disorder of lipoprotein metabolism, unspecified, I10 - Essential (primary) hypertension, I25.10 - Atherosclerotic heart disease of [place] coronary artery without angina pectoris, R73.03 - Prediabetes TSH reflex Free T4 Today E66.9 - Obesity, unspecified, E78.9 - Disorder of lipoprotein metabolism, unspecified, I10 - Essential (primary) hypertension, I25.10 - Atherosclerotic heart disease of [place] coronary artery without angina pectoris, R73.03 - Prediabetes Medications: Refilled citalopram 40 mg PO DAILY 90 tabs 0RF atenolol 50 mg PO DAILY 90 tabs 0RF atorvastatin 80 mg PO DAILY 90 tabs 0RF 90 days E78.9 - Disorder of lipoprotein metabolism, unspecified ezetimibe 10 mg PO DAILY 90 tabs 0RF
== END 2024-07-19 09:48 | disposition home or self-care (01) ==
PROVIDERS: PCP Internal Medicine; Visit Provider Internal Medicine
DX: I10 Essential (primary) hypertension (principal); F33.42 Major depressive disorder, recurrent, in full remission; E66.811 Obesity, class 1; Z68.33 Body mass index [BMI] 33.0-33.9, adult; I25.10 Atherosclerotic heart disease of native coronary artery without angina pectoris; E78.9 Disorder of lipoprotein metabolism, unspecified; R73.03 Prediabetes

== ENCOUNTER → 2024-07-19 08:52 | Outpatient (BNVA) | payer MEDICARE, SELFPAY | PROVIDERS: PCP Internal Medicine; Visit Provider Internal Medicine ==

== ENCOUNTER 2024-07-19 09:30 | Outpatient (REF) | payer MEDICARE, SELFPAY ==
[2024-07-19 13:19] LABS: MANUAL DIFF FLAG NO
[2024-07-19 13:35] LABS: Basophils Percent Auto 0.4 % (0-2); Eosinophils Absolute Auto 0.3 X10*3/uL (0.0-0.4); Eosinophils Percent Auto 4.3 % (0-4); Hematocrit 44.8 % (37.0-47.0); Hemoglobin 14.4 g/dl (12.0-16.0); Imm Gran Abs Auto 0.03 X10*3/uL (0.00-0.03); Imm Gran Pct Auto 0.4 % (0.0-0.4); Lymphocytes Absolute Auto 1.5 X10*3/uL (1.2-4.9); Lymphocytes Percent Auto 21.6 % (20-40); Mean Corpuscular HGB Conc 32.1 g/dl (31.0-35.0); Mean Corpuscular Hemoglobin 28.9 pg (27.0-33.0); Mean Platelet Volume 10.2 fL (9.4-12.3); Monocytes Absolute Auto 0.3 X10*3/uL (0.1-1.2); Monocytes Percent Auto 4.9 % (2-11); Neutrophils Absolute Auto 4.6 x10*3/uL (2.0-8.3); Neutrophils Percent Auto 68.4 % (45-73); Platelet Count 211 X10*3/uL (160-400); Red Blood Count 4.98 X10*6/uL (4.20-5.50); Red Cell Distribution Width 13.4 % (11.0-16.0); White Blood Count 6.7 X10*3/uL (4.8-10.8)
[2024-07-19 14:06] LABS: Alanine Aminotransferase 21 U/L (0-31); Albumin Level 3.8 g/dL (3.5-5.0); Alkaline Phosphatase 30 U/L (39-117); Anion Gap 11 (12-20); Aspartate Amino Transferase 24 U/L (5-31); Bilirubin Total 0.5 mg/dL (0.0-1.0); Blood Urea Nitrogen 11 mg/dL (9-16); Calcium 9.4 mg/dL (8.4-10.2); Carbon Dioxide 28 mmol/L (22-29); Chloride 108 mmol/L (96-108); Estimated Glomerular Filt Rate > 60; Glucose Random 108 mg/dL (60-115); Potassium 3.8 mmol/L (3.3-5.1); Sodium 143 mmol/L (135-145); Total Protein 6.2 g/dL (6.5-8.0)
[2024-07-19 14:22] LABS: TSH reflex Free T4 1.68 uIU/mL (0.32-4.0)
[2024-07-20 08:44] LABS: LDL Cholesterol Direct 75 mg/dL (<100)
[2024-07-23 14:13] LABS: Vitamin D 25-OH, D2 <4 ng/mL; Vitamin D 25-OH, D3 20 ng/mL; Vitamin D 25-OH, Total 20 ng/mL (30-100)
== END 2024-07-19 09:31 | disposition home or self-care (01) ==
LOC: HO.HMGCLDS 09:30
PROVIDERS: PCP Internal Medicine; Visit Provider Internal Medicine
DX: I10 Essential (primary) hypertension (principal); F33.42 Major depressive disorder, recurrent, in full remission; I25.10 Atherosclerotic heart disease of native coronary artery without angina pectoris; E78.9 Disorder of lipoprotein metabolism, unspecified; R73.03 Prediabetes; E66.9 Obesity, unspecified; Z68.33 Body mass index [BMI] 33.0-33.9, adult; Z79.899 Other long term (current) drug therapy
CPT/HCPCS: 36415; 80053; 82306; 83721; 84443; 85025; 99212

== ENCOUNTER 2024-08-12 14:42 | Outpatient (AMB) | payer MEDICARE, SELFPAY ==
[2024-08-12 14:45] VITALS: BP 162/98; PULSE 83; O2SAT 98; BMI 32.9
--- NOTE | 2024-08-12 14:45 | A.OFFPC_ITS ---
Vital Signs 08/12/24 14:45 Height 5 ft 3 in Weight 186 lb BMI 32.9 BP 162/98 H Blood Pressure Location Lt brachial Position Sitting Pulse 83 Pulse Source Pulse Oximeter Pulse Oximetry (%) 98 Oxygen Delivery Method Room Air Intake Visit Reasons: Referral Req Allergies oxycodone [OXYCODONE] Adverse Reaction (Intermediate, Verified 08/12/24 14:55) SEVERE VOMITING Medication List - Last Reconciled 08/12/24 by Gela Patel MD aspirin (Ecotrin Low Strength) 81 mg PO DAILY 90 days atenolol 50 mg PO DAILY atorvastatin 80 mg PO DAILY 90 days citalopram 40 mg PO DAILY ezetimibe 10 mg PO DAILY Tobacco use date assessed: 08/12/24 Last assessed Fall Risk: 08/12/24 Dental Screening Dental Screen Date: 04/20/24 HPI Referral Req HPI Details Patient is 69-year-old female came in today to be evaluated for vaginal bleeding That started last week and lasted the whole week, patient says that it was not have enough for her to wear heavy bad But she had to wear panty liner She still have a brownish discharge There is no pain There is no nausea vomiting diarrhea There is no weight loss Referral to OBGYN placed We will do a start ultrasound pelvic today [facility] Medical History Skin lesion HTN (hypertension) CAD (coronary artery disease) On anticoagulant therapy History of Meniere's syndrome Anxiety Depression Elevated cholesterol Myocardial infarction Surgical History History of colonoscopy Stented coronary artery Hx of cholecystectomy History of superficial parotidectomy History of section Family History Father Mesothelioma Kidney stones Mother HTN (hypertension) Diverticulitis Brother HTN (hypertension) Daughter No problems noted. Maternal Grandfather No problems noted. Maternal Grandmother No problems noted. Paternal Grandfather No problems noted. Paternal Grandmother No problems noted. Other Mental health disorder Social History Housing: House Alcohol intake: current Alcohol intake frequency: holidays/special occasions only Patient Tobacco Use Status: Current everyday Tobacco user Tobacco use type: Cigarette Cigarettes Per Day: 2 Years Smoked: 10 Packs per year/per ci.00 e-Cigarette/Vaping Use: Never Used Second Hand Smoke Exposure: No service: No Current occupational status: retired Cognitive needs: No Hearing needs: No Vision needs: No Female Reproductive History Menstrual Age of Menarche: 10 Questionnaire Thrive Questionnaire Date Thrive assessed: 04/20/24 I am a: Patient What is your living situation today?: I have a steady place to live Within the past 12 months, did the food you bought not last and you didn't have the money to get more?: Never true Within the past 12 months, did you worry whether your food would run out before you got money to buy more?: Never true Do you have trouble paying for medicines?: No Do you have trouble getting transportation to medical appointments?: No Do you have trouble paying your heating and electricity bill?: No Do you have trouble taking care of your child, family member or friend?: No Do you have trouble with day-to-day activities such as bathing, preparing meals, shopping, managing finances, etc.?: No Are you currently unemployed and looking for a job?: No Are you interested in more education?: No Please select the resources that you would like help with: None Currently or been in a relationship where the following occur: No concerns reported THRIVE Score: 0 IRVIN-7 AMB Questionnaire IRVIN-7 Date IRVIN - 7 assessed: 04/20/24 Source: Developed by Drs. Abad Manuel, Chetna Boudreaux, Dominic Pena and colleagues, with an educational carol from [employer]. Review of Systems Const Denies chills and Denies fever(s) ENT Denies epistaxis and Denies nasal discharge Card Denies chest pain Resp Denies chest congestion, Denies cough and Denies hemoptysis GI Denies diarrhea and Denies nausea Skin/Breast Denies rash Neuro Reports no additional complaints Psych Reports no additional complaints Endo Reports no additional complaints Physical exam (Primary Care) Vital Signs: Last Vital Signs Pulse 83 08/12/24 14:45 BP 162/98 H 08/12/24 14:45 Pulse Ox 98 08/12/24 14:45 Oxygen Delivery Method Room Air 08/12/24 14:45 BMI result Body Mass Index 32.9 Tobacco/Smoking Status: Tobacco use Status Tobacco use date assessed 08/12/24 08/12/24 14:56 Patient Tobacco Use Status Current everyday Tobacco 08/12/24 14:45 Tobacco use type Cigarette 08/12/24 14:45 e-Cigarette/Vaping Use Never Used 08/12/24 14:45 Thrive Assessment: Date of Thrive Assessment Date Thrive assessed 04/20/24 08/12/24 14:45 Currently or been in a relationship where the following occur: No concerns reported Const General: cooperative, comfortable and no acute distress Orientation/consciousness: patient oriented x3 HENMT Head: Yes normocephalic Eyes General: appearance normal, both eyes and all related structures Neck Neck: Yes supple Resp Effort & Inspection: normal respiratory effort, no cough and no stridor Cardio Rhythm: regular rhythm Heart sounds: S1 normal heart sound present and S2 normal heart sound present GI Other: No pain with palpation suprapubic General: Yes no CVA tenderness Back/Spine/Pelvis Back: no CVA tenderness Skin General skin exam: turgor normal Neuro General: patient oriented x3, tone normal and moves all extremities Coding Level of Care Code Est Pt Level 4 (58015) Diagnoses Postmenopausal bleeding N95.0 Assessment & Plan Assessment & Plan (1) Postmenopausal bleeding: Code(s): N95.0 - Postmenopausal bleeding Category: Medical Plan Patient is 69-year-old female came in today to be evaluated for vaginal bleeding That started last week and lasted the whole week, patient says that it was not have enough for her to wear heavy bad But she had to wear panty liner She still have a brownish discharge There is no pain There is no nausea vomiting diarrhea There is no weight loss Referral to OBGYN placed We will do a start ultrasound pelvic today She does have a family history of kidney stones But patient is under was not sure it is vaginal bleeding Orders: Orders US pelvic and transvaginal Today N95.0 - Postmenopausal bleeding
== END 2024-08-12 15:13 | disposition home or self-care (01) ==
PROVIDERS: PCP Internal Medicine; Visit Provider Internal Medicine
DX: N95.0 Postmenopausal bleeding (principal)

== ENCOUNTER → 2024-08-12 14:42 | Outpatient (BNVA) | payer MEDICARE, SELFPAY | PROVIDERS: PCP Internal Medicine; Visit Provider Internal Medicine | DX: N95.0 Postmenopausal bleeding (principal) | CPT/HCPCS: 76830; 76856; 99212 ==

== ENCOUNTER 2024-08-12 15:17 | Outpatient (REF) | payer MEDICARE, SELFPAY ==
--- NOTE | ~2024-08-12 | US_ITS ---
EXAMINATION: US PELVIS CLINICAL INFORMATION: Postmenopausal bleeding COMPARISON: None available. TECHNIQUE: Ultrasound of the pelvis is performed using both transabdominal and transvaginal transducers along with Doppler. Transvaginal imaging is performed due to inadequate visualization transabdominally. FINDINGS: UTERUS: Anteverted. Normal size and contour, measuring 7 x 4.3 x 5.8 cm (cervix to fundus x AP x transverse). Irregularly thickened endometrium measures 1.9 cm in width, with small nonvascular cystic areas. RIGHT OVARY: Normal size and echogenicity measuring 2.9 x 1.2 x 3 cm, volume 5.5 mL. LEFT OVARY: Normal size and echogenicity measuring 1.2 x 0.8 x 1.7 cm, volume 0.9 mL. FREE FLUID: No pelvic free fluid. US/US pelvic and transvaginal IMPRESSION: Irregularly thickened endometrium measures 1.9 cm in width, with small nonvascular cystic areas. Findings are concerning for endometrial hyperplasia or carcinoma. Recommend gynecologic consultation. Electronically signed by: Marci Horn DO 08/12/2024 06:16 PM [facility]
== END 2024-08-12 15:18 | disposition home or self-care (01) ==
LOC: HO.HMGCX 15:17
PROVIDERS: PCP Internal Medicine; Visit Provider Internal Medicine
DX: Z13.89 Encounter for screening for other disorder (principal)
CPT/HCPCS: 76830; 76856

== ENCOUNTER 2024-08-18 07:14 | Outpatient (AMB) | payer MEDICARE, SELFPAY ==
[2024-08-18 07:33] VITALS: BP 124/86; BMI 32.8
--- NOTE | 2024-08-18 07:33 | MHC.OFFVIS ---
Vital Signs 08/18/24 07:33 Height 5 ft 3 in Weight 185 lb 3.013 oz BMI 32.8 BP 124/86 Intake Visit Reasons: PMB Nib Assembler Required: No Information Interpreted: non-clinical & clinical Name Plate Stamping Machine Operator: Name Plate Stamping Machine Operator Present (Loretta WILLSON) Accompanied by: Self / Same As Patient Allergies oxycodone [OXYCODONE] Adverse Reaction (Intermediate, Verified 08/18/24 07:35) SEVERE VOMITING Post menopausal: Yes HPI Comments Details: Presenting after an episode of vaginal bleeding week ago. Last co testing was in 10/27 was negative Pelvic ultrasound done few days ago showed the following: UTERUS: Anteverted. Normal size and contour, measuring 7 x 4.3 x 5.8 cm (cervix to fundus x AP x transverse). Irregularly thickened endometrium measures 1.9 cm in width, with small nonvascular cystic areas. RIGHT OVARY: Normal size and echogenicity measuring 2.9 x 1.2 x 3 cm, volume 5.5 mL. LEFT OVARY: Normal size and echogenicity measuring 1.2 x 0.8 x 1.7 cm, volume 0.9 mL. FREE FLUID: No pelvic free fluid. [facility] Medical History Skin lesion HTN (hypertension) CAD (coronary artery disease) On anticoagulant therapy History of Meniere's syndrome Anxiety Depression Elevated cholesterol Myocardial infarction Surgical History History of colonoscopy Stented coronary artery Hx of cholecystectomy History of superficial parotidectomy History of section Family History Father Mesothelioma Kidney stones Mother HTN (hypertension) Diverticulitis Brother HTN (hypertension) Daughter No problems noted. Maternal Grandfather No problems noted. Maternal Grandmother No problems noted. Paternal Grandfather No problems noted. Paternal Grandmother No problems noted. Other Mental health disorder Social History Housing: House Alcohol intake: current Alcohol intake frequency: holidays/special occasions only Patient Tobacco Use Status: Current everyday Tobacco user Tobacco use type: Cigarette Cigarettes Per Day: 2 Years Smoked: 10 e-Cigarette/Vaping Use: Never Used Second Hand Smoke Exposure: No service: No Current occupational status: retired Cognitive needs: No Hearing needs: No Vision needs: No Female Reproductive History Menstrual Age of Menarche: 10 Review of Systems Const All systems reviewed & are unremarkable except as noted in HPI and below Physical Exam Vital Signs: Last Vital Signs BP 124/86 08/18/24 07:33 BMI result Body Mass Index 32.8 General: Yes no CVA tenderness External Female Exam: normal external appearance and normal appearance of the urethra Speculum Exam - Vagina: normal appearance of the vagina, normal palpation, no lesions and no masses Speculum Exam - Cervix: normal appearance of the cervix, normal palpation, no lesions, no masses and nontender Bimanual exam- vagina & uterus: normal bimanual exam, normal palpation, uterine size normal, normal palpation, uterine shape normal, No Cervical tenderness present and non-tender Bimanual Exam- Adnexa, other: normal adnexae Back/Spine/Pelvis Back: no CVA tenderness Office Procedures Endometrial Biopsy Details: The patient was counseled regarding the indication and benefits of endometrial sampling to rule out endometrial pathology including not limited to endometrial hyperplasia or endometrial cancer and others; The alternatives (Either do nothing vs. hysteroscopy D&C) & the risks were discussed with the patient including but not limited: pain, uterine perforation, bleeding, infection, possible injury to bladder, bowel, ureter, possible need for blood transfusion with all its possible risks. The patient verbalized understanding all questions answered and signed consent. The patient was placed into the dorsal lithotomy position; a speculum was inserted in the vagina. Using aseptic technique for the procedure, the cervix was cleansed with Betadine. The anterior lip of the cervix was grasped with a single tooth tenaculum. The uterus was sounded to 7 cm with a 4 mm Pipelle was used. Tissues samples were obtained and placed in formalin, in a patient labeled container and sent to the pathology department. At the end of the procedure, there was minimal bleeding noted The patient tolerated the procedure well and was discharged in good condition with the following instructions: Nothing in the vagina until the bleeding stops. No sex until the bleeding stops, to call if any of the following occurs: fever (>100.4), flu-like symptoms, abdominal pain, heavy bleeding, four smelling vaginal discharge. The patient was instructed to schedule a Follow up appointment in 2 weeks to discuss pathology results of the biopsy and treatment options. This note was generated with a voice recognition program. Some errors may have been overlooked during the review of this note. Sometimes these errors may affect the content or meaning of a given sentence. [id number] Biopsy Assessment & Plan Assessment & Plan (1) Postmenopausal bleeding: Code(s): N95.0 - Postmenopausal bleeding Category: Medical Plan: Discussed with the patient the pelvic ultrasound findings, the endometrial stripe thickenss measured by ultrasound was more than 4mm. The negative predictive value, positive predictive value, Sensitivity, specificity of using ultrasound measurement of endometrial stripe to detecting endometrial pathology including hyperplasia , polyp or cancer were discussed with the patient. Recommended to the patient that the next step is an endometrial sampling via hysteroscopy D&C possible polypectomy versus endometrial biopsy to r/o endometrial pathology including hyperplasia or cancer. All the pros and cons risks and benefits of each approach were discussed with the patient, endometrial biopsy being less invasive, office procedure with less sensitivity and inability diagnose a polyp and removal versus hysteroscopy done under anesthesia more invasive more sensitive to endometrial cancer and possibility of diagnosing and endometrial polyp with the possibility of polypectomy. All questions were answered pt verbalized understanding and decided to proceed with endometrial biopsy. EMB done, see procedure Orders: Orders AMB Endometrial Biopsy Today N95.0 - Postmenopausal bleeding Surgical Today N95.0 - Postmenopausal bleeding Coding Level of Care Code Est Pt Level 3 (39657) Procedure Only Diagnoses Postmenopausal bleeding N95.0 CPT Codes Endometrial Biopsy - CPT: 69148-[id number] Biopsy ([id number])
== END 2024-08-18 08:04 | disposition home or self-care (01) ==
PROVIDERS: PCP Internal Medicine; Visit Provider Obstetrics & Gynecology
DX: N95.0 Postmenopausal bleeding (principal)
CPT/HCPCS: 58100; 99213

== ENCOUNTER 2024-08-18 07:14 | Outpatient (REF) | payer MEDICARE, SELFPAY | END 2024-08-18 07:15 | disposition home or self-care (01) | LOC: HO.LNP 07:14 | PROVIDERS: PCP Internal Medicine; Visit Provider Obstetrics & Gynecology | DX: N95.0 Postmenopausal bleeding (principal) | CPT/HCPCS: 58100; 88305; 99212 ==

== ENCOUNTER 2024-08-25 16:01 | Outpatient (AMB) | payer MEDICARE, SELFPAY ==
--- NOTE | 2024-08-25 16:32 | A.OFFVIS_ITS ---
Intake Visit Reasons: EMB results Allergies oxycodone [OXYCODONE] Adverse Reaction (Intermediate, Verified 08/18/24 07:35) SEVERE VOMITING PFSH Medical History Skin lesion HTN (hypertension) CAD (coronary artery disease) On anticoagulant therapy History of Meniere's syndrome Anxiety Depression Elevated cholesterol Myocardial infarction Surgical History History of colonoscopy Stented coronary artery Hx of cholecystectomy History of superficial parotidectomy History of section Family History Father Mesothelioma Kidney stones Mother HTN (hypertension) Diverticulitis Brother HTN (hypertension) Daughter No problems noted. Maternal Grandfather No problems noted. Maternal Grandmother No problems noted. Paternal Grandfather No problems noted. Paternal Grandmother No problems noted. Other Mental health disorder Social History Housing: House Alcohol intake: current Alcohol intake frequency: holidays/special occasions only Patient Tobacco Use Status: Current everyday Tobacco user Tobacco use type: Cigarette Cigarettes Per Day: 2 Years Smoked: 10 e-Cigarette/Vaping Use: Never Used Second Hand Smoke Exposure: No service: No Current occupational status: retired Cognitive needs: No Hearing needs: No Vision needs: No Female Reproductive History Menstrual Age of Menarche: 10 Telehealth Telehealth Telehealth Platform: Telephone Location of provider rendering services: practice address Location of patient: address on file Patient Identification confirmed using: Name, : Yes Telehealth method: video Patient verbally consented to treatment: Yes Patient verbally consented to billing insurance company: Yes Patient informed of any privacy concerns related to visit: Yes Coding
--- NOTE | 2024-08-25 16:33 | A.OFFVIS_ITS ---
Intake Visit Reasons: EMB results Allergies oxycodone [OXYCODONE] Adverse Reaction (Intermediate, Verified 08/18/24 07:35) SEVERE VOMITING HPI Comments Details: The patient schedule telehealth visit after endometrial biopsy. The patient has no complaints, no vaginal bleeding, no feverishness chills or abdominal pain. The endometrial biopsy pathology report showed the following: Strips of atrophic endometrium and small infarcted tissue fragment; negative for atypia, hyperplasia or malignancy PFSH Medical History Skin lesion HTN (hypertension) CAD (coronary artery disease) On anticoagulant therapy History of Meniere's syndrome Anxiety Depression Elevated cholesterol Myocardial infarction Surgical History History of colonoscopy Stented coronary artery Hx of cholecystectomy History of superficial parotidectomy History of section Family History Father Mesothelioma Kidney stones Mother HTN (hypertension) Diverticulitis Brother HTN (hypertension) Daughter No problems noted. Maternal Grandfather No problems noted. Maternal Grandmother No problems noted. Paternal Grandfather No problems noted. Paternal Grandmother No problems noted. Other Mental health disorder Social History Housing: House Alcohol intake: current Alcohol intake frequency: holidays/special occasions only Patient Tobacco Use Status: Current everyday Tobacco user Tobacco use type: Cigarette Cigarettes Per Day: 2 Years Smoked: 10 e-Cigarette/Vaping Use: Never Used Second Hand Smoke Exposure: No service: No Current occupational status: retired Cognitive needs: No Hearing needs: No Vision needs: No Female Reproductive History Menstrual Age of Menarche: 10 Review of Systems Const All systems reviewed & are unremarkable except as noted in HPI and below Reports as per HPI and Reports no additional complaints GI Reports no additional complaints Reports no additional complaints Telehealth Telehealth Telehealth Platform: Telephone Location of provider rendering services: practice address Location of patient: address on file Patient Identification confirmed using: Name, : Yes Telehealth method: voice only Patient verbally consented to treatment: Yes Patient verbally consented to billing insurance company: Yes Patient informed of any privacy concerns related to visit: Yes Assessment & Plan Assessment & Plan (1) Postmenopausal bleeding: Code(s): N95.0 - Postmenopausal bleeding Category: Medical Plan: Discussed with the patient the results of the endometrial biopsy . Discussed with the patient the sensitivity, specificity, positive and negative predictive value, of endometrial biopsy in detecting endometrial pathology including but no t limited to endometrial hyperplasia, cancer and other pathology; instructed the patient to call in case vaginal bleeding bleeding recurs, the next step will be to proceed with a diagnostic hysteroscopy/D&C for further endometrial sampling evaluation to rule out endometrial pathology. All questions answered and the patient verbalized understanding and agreed with the plan. I spent a total of 20 minutes reviewing the chart, talking to the patient via phone and documenting in the medical record. Coding Level of Care Code Tele Est Pt Level 1 (93924) Diagnoses Postmenopausal bleeding N95.0
== END 2024-08-25 16:58 | disposition home or self-care (01) ==
LOC: HO.HWS 16:01
PROVIDERS: PCP Internal Medicine; Visit Provider Obstetrics & Gynecology
DX: N95.0 Postmenopausal bleeding (principal)
CPT/HCPCS: 99211

== ENCOUNTER → 2024-08-25 16:01 | Outpatient (BNVA) | payer MEDICARE, SELFPAY | PROVIDERS: PCP Internal Medicine; Visit Provider Obstetrics & Gynecology ==

== ENCOUNTER 2024-09-06 12:15 | Outpatient (AMB) | payer MEDICARE, SELFPAY ==
[2024-09-06 12:16] VITALS: BP 132/86; PULSE 47; O2SAT 99; BMI 33.7
--- NOTE | 2024-09-06 12:16 | A.OFFPC_ITS ---
Vital Signs 09/06/24 12:16 Height 5 ft 3 in Weight 190 lb BMI 33.7 BP 132/86 Blood Pressure Location Lt brachial Position Sitting Pulse 47 L Pulse Source Pulse Oximeter Pulse Oximetry (%) 99 Oxygen Delivery Method Room Air Intake Visit Reasons: Annual PE Overdue - see comments Allergies oxycodone [OXYCODONE] Adverse Reaction (Intermediate, Verified 09/06/24 12:16) SEVERE VOMITING Medication List - Last Reconciled 09/06/24 by Gela Patel MD aspirin (Ecotrin Low Strength) 81 mg PO DAILY 90 days atenolol 50 mg PO DAILY atorvastatin 80 mg PO DAILY 90 days citalopram 40 mg PO DAILY ezetimibe 10 mg PO DAILY Tobacco use date assessed: 09/06/24 Fall risk assessment: No Falls in past year Last assessed Fall Risk: 09/06/24 Dental Screening Dental Screen Date: 09/06/24 Did you have a dental visit in the last 12 months?: Yes Did you have a dental problem in the last 6 months where you did not have access to dental care?: No Was dental information given to patient?: Patient has dentist HPI Annual PE Overdue - see comments HPI Details Chief Complaint Routine health maintenance examination with specific discussions on heart rate management and skin evaluation. Health Maintenance - Vaccinations: Patient reports receipt of the influenza vaccine and pneumococcal vaccine. - Screening Tests: Discussion about mamm ogram scheduling (patient due next year) and colonoscopy (last performed in 2019 with findings of tubular adenoma). - Lab Results: Reviewed blood test from July?normal hemoglobin (no anemia), normal electrolytes, normal kidney function, normal blood sugar, normal liver enzymes, LDL is 75, noted Vitamin D deficiency. - Bone Health: Previous bone density dianelys dy 2022, revealed osteopenia. - Lifestyle: Patient advised to maintain physical exercise, particularly walking, and consume calcium-rich foods to support bone health. Assessment and Plan 69-year-old female with a history of bra dycardia and hyperlipidemia presenting for a routine health maintenance examination. The patient is on atenolol, which accounts for a heart rate in the lower range, but currently asymptomatic with no dizziness or lightheadedness attributed to the medication. Previous colonoscopy in 2019 demonstrated tubular adenoma, patient requiring future scheduling. Notable laboratory findings indicate a Vitamin D deficiency requiring supplementation. The patient reports a familial predisposition for skin cancer and desires a dermatological evaluation. Previous assessment shows osteopenia; patient encouraged to continue lifestyle modifications. 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 1. Meniere's Disease Patient experiencing balance issues attributed to Meniere's in the right ear. Stable condition; monitor symptoms. No new interventions planned unless symptoms worsen. 2. Bradycardia Bradycardia attributed to atenolol use. Patient instructed to monitor for symptoms such as dizziness or lightheadedness, though none are currently present. Continue medication, reassess if symptoms develop. 3. Osteopenia Confirmed on previous bone density scan. Encourage weight-bearing exercises, walking routine with dog, and increased dietary calcium intake. 4. Benign Skin Lesion Suspected Patient reports a lesion not causing symptoms. Advised to leave it unless it becomes bothersome. Referral to dermatology ([facility]) for further assessment placed, particularly due to family history of skin cancer. 5. Hyperlipidemia LDL cholesterol is adequately managed at 75 on current atorvastatin therapy. Continue with current statin dose of atorvastatin 80 mg daily. 6. Vitamin D Deficiency Vitamin D supplementation recommended. Advise purchase [id number] or through insurance plan; ensure adequate intake. 7. Tubular Adenoma History Of Status post-colonoscopy in 2020 with finding of tubular adenoma. Communication with Dr. Gill's office for follow-up colonoscopy scheduling. 8. Anxiety Disorder Patient continues on citalopram 40 mg; monitor for efficacy and side effects during routine follow-up. Patient Instructions - Continue current medication regimen as prescribed. - Notify if experiencing new symptoms of dizziness or lightheadedness. - Engage in regular physical activity, p articularly weight-bearing exercises like walking, and increase dietary calcium. - Start Vitamin D supplementation and fo llow recommended dosing. - Await scheduling for follow-up colonos copy to reassess tubular adenoma. - Contact [facility] for sk in lesion evaluation and ensure referral is processed. - Maintain awareness of Meniere's sympto ms; report any changes. - Follow up with yearly mammogram as gissel torres. [facility] Medical History Skin lesion HTN (hypertension) CAD (coronary artery disease) On anticoagulant therapy History of Meniere's syndrome Anxiety Depression Elevated cholesterol Myocardial infarction Surgical History History of colonoscopy Stented coronary artery Hx of cholecystectomy History of superficial parotidectomy History of section Family History Father Mesothelioma Kidney stones Mother HTN (hypertension) Diverticulitis Brother HTN (hypertension) Daughter No problems noted. Maternal Grandfather No problems noted. Maternal Grandmother No problems noted. Paternal Grandfather No problems noted. Paternal Grandmother No problems noted. Other Mental health disorder Social History Housing: House Alcohol intake: current Alcohol intake frequency: holidays/special occasions only Patient Tobacco Use Status: Current everyday Tobacco user Tobacco use type: Cigarette Cigarettes Per Day: 2 Years Smoked: 10 e-Cigarette/Vaping Use: Never Used Second Hand Smoke Exposure: No service: No Current occupational status: retired Cognitive needs: No Hearing needs: No Vision needs: No Female Reproductive History Menstrual Age of Menarche: 10 Questionnaire Thrive Questionnaire Date Thrive assessed: 09/06/24 I am a: Patient What is your living situation today?: I have a steady place to live Within the past 12 months, did the food you bought not last and you didn't have the money to get more?: Never true Within the past 12 months, did you worry whether your food would run out before you got money to buy more?: Never true Do you have trouble paying for medicines?: No Do you have trouble getting transportation to medical appointments?: No Do you have trouble paying your heating and electricity bill?: No Do you have trouble taking care of your child, family member or friend?: No Do you have trouble with day-to-day activities such as bathing, preparing meals, shopping, managing finances, etc.?: No Are you currently unemployed and looking for a job?: No Are you interested in more education?: No Please select the resources that you would like help with: None Currently or been in a relationship where the following occur: No concerns reported THRIVE Score: 0 AUDIT C Alcohol Use Questionnaire (AUDIT-C) 1. How often do you have a drink containing alcohol?: Monthly or less 2. How many drinks containing alcohol do you have on a typical day when you are drinking?: 1 or 2 3. How often do you have six or more drinks on one occasion?: Never Total Score: 1 Score Reviewed/Action Taken: Yes IRVIN-7 AMB Questionnaire IRVIN-7 Date IRVIN - 7 assessed: 04/20/24 Source: Developed by Drs. Abad Manuel, Chetna Boudreaux, Dominic Pena and colleagues, with an educational carol from [employer]. Review of Systems Const Denies chills, Denies fever(s) and Denies headache(s) Eyes Denies blurry vision ENT Denies headache(s), Denies nasal discharge, Denies nasal obstruction, Denies odynophagia and Denies sinus pain Card Denies chest pain at rest and Denies chest pain with activity Resp Denies cough and Denies hemoptysis GI Denies diarrhea, Denies odynophagia, Denies vomiting and Denies hematemesis Reports as per HPI Musc Denies abnormal gait Skin/Breast Reports as per HPI Neuro Denies Neuro-related abnormal movements, Denies Abnormal speech present, Denies abnormal gait, Denies headache(s) and Denies Sensory deficit (Neuro) Psych Denies mood swings and Denies paranoia Endo Reports as per HPI Ricardo/Lymph Reports as per HPI Aller/Immun Reports as per HPI Physical exam (Primary Care) Vital Signs: Last Vital Signs Pulse 47 L 09/06/24 12:16 BP 132/86 09/06/24 12:16 Pulse Ox 99 09/06/24 12:16 Oxygen Delivery Method Room Air 09/06/24 12:16 BMI result Body Mass Index 33.7 Tobacco/Smoking Status: Tobacco use Status Tobacco use date assessed 09/06/24 09/06/24 12:19 Patient Tobacco Use Status Current everyday Tobacco 09/06/24 12:19 Tobacco use type Cigarette 09/06/24 12:19 e-Cigarette/Vaping Use Never Used 09/06/24 12:19 Thrive Assessment: Date of Thrive Assessment Date Thrive assessed 09/06/24 09/06/24 12:19 Currently or been in a relationship where the following occur: No concerns reported Const General: cooperative, comfortable and no acute distress Orientation/consciousness: patient oriented x3 HENMT Head: Yes normocephalic and Yes atraumatic Eyes General: appearance normal, both eyes and all related structures Pupils: Equal, round and reactive pupils present EOM: EOMs intact bilaterally Neck Neck: Yes supple and No lymphadenopathy Thyroid: Thyroid normal Lymphatic: no lymphadenopathy noted Chest Breast/axilla palpation: normal palpation of the breasts Resp Effort & Inspection: normal respiratory effort and able to speak in complete sentences Auscultation: clear to auscultation bilaterally Cardio Heart sounds: S1 normal heart sound present and S2 normal heart sound present GI Palpation (GI): Soft to palpation and nontender Auscultation: normal bowel sounds General: Yes no CVA tenderness Back/Spine/Pelvis Back: no CVA tenderness Skin General skin exam: elasticity normal and turgor normal Neuro General: patient oriented x3 and gait normal Cranial nerves: Yes Equal, round and reactive pupils present Speech: No Abnormal speech present Sensory Exam: No Sensory deficit (Neuro) Coordination: Romberg test negative Extrem General: Yes normal exam except as noted and No edema Coding Level of Care Code Est Pt Level 3 (43733) Est Pt Prev Care >65y(93937) Diagnoses Encounter for general adult medical examination with abnormal findings Z00. Tubular adenoma D36.9 Skin cancer screening Z12.83 Primary hypertension I10 Hypertension type: primary hypertension Skin growth D49.2 Recurrent major depressive disorder, in full remission F33.42 Active/Remission status: in full remission Class 2 severe obesity due to excess calories with serious comorbidity and body mass index (BMI) of 35.0 to 35.9 in adult E66.01; Z68.35 Body mass index: BMI 35.0-35.9 Obesity classification: adult class 2 (BMI 35 - 39.9) Serious obesity comorbidity presence: with serious comorbidity Pre-diabetes R73.03 Lipid disorder E78.9 Coronary artery disease involving [place] coronary artery of [place] heart without angina pectoris I25.10 Associated angina: without angina Coronary Disease-Associated Artery/Lesion type: [place] artery [place] vs. transplanted heart: [place] heart Bradycardia, drug induced R00.1; T50.905A Assessment & Plan Assessment & Plan (1) Encounter for general adult medical examination with abnormal findings: Code(s): Z00.01 - Encounter for general adult medical examination with abnormal findings Category: Medical (2) Tubular adenoma: Comment: 65-year-old female follows up after index screening colonoscopy polypectomy, pathology tubular adenoma repeat colonoscopy 5 years -2024 Code(s): D36.9 - Benign neoplasm, unspecified site Category: Medical (3) Skin cancer screening: Code(s): Z12.83 - Encounter for screening for malignant neoplasm of skin Category: Medical (4) HTN (hypertension): Code(s): I10 - Essential (primary) hypertension Category: Medical Qualifiers: Hypertension type: primary hypertension Qualified Code(s): I10 - Essential (primary) hypertension (5) Skin growth: Code(s): D49.2 - Neoplasm of unspecified behavior of bone, soft tissue, and skin Category: Medical (6) Major depression, recurrent: Code(s): F33.9 - Major depressive disorder, recurrent, unspecified Category: Medical Qualifiers: Active/Remission status: in full remission Qualified Code(s): F33.42 - Major depressive disorder, recurrent, in full remission (7) Obesity due to excess calories: Code(s): E66.09 - Other obesity due to excess calories Category: Medical Qualifiers: Body mass index: BMI 35.0-35.9 Obesity classification: adult class 2 (BMI 35 - 39.9) Serious obesity comorbidity presence: with serious comorbidity Qualified Code(s): E66.01 - Morbid (severe) obesity due to excess calories; Z68.35 - Body mass index [BMI] 35.0-35.9, adult (8) Pre-diabetes: Code(s): R73.03 - Prediabetes Category: Medical (9) Lipid disorder: Code(s): E78.9 - Disorder of lipoprotein metabolism, unspecified Category: Medical (10) CAD (coronary artery disease): Code(s): I25.10 - Atherosclerotic heart disease of [place] coronary artery without angina pectoris Category: Medical Qualifiers: Associated angina: without angina Coronary Disease-Associated Artery/Lesion type: [place] artery [place] vs. transplanted heart: [place] heart Qualified Code(s): I25.10 - Atherosclerotic heart disease of [place] coronary artery without angina pectoris (11) Bradycardia, drug induced: Code(s): R00.1 - Bradycardia, unspecified; T50.905A - Adverse effect of unspecified drugs, medicaments and biological substances, initial encounter Category: Medical Plan Chief Complaint Routine health maintenance examination with specific discussions on heart rate management and skin evaluation. Health Maintenance - Vaccinations: Patient reports receipt of the influenza vaccine and pneumococcal vaccine. - Screening Tests: Discussion about mammogram scheduling (patient due next year) and colonoscopy (last performed in 2019 with findings of tubular adenoma). - Lab Results: Reviewed blood test from July?normal hemoglobin (no anemia), normal electrolytes, normal kidney function, normal blood sugar, normal liver enzymes, LDL is 75, noted Vitamin D deficiency. - Bone Health: Previous bone density study 2022, revealed osteopenia. - Lifestyle: Patient advised to maintain physical exercise, particularly walking, and consume calcium-rich foods to support bone health. Assessment and Plan 69-year-old female with a history of bradycardia and hyperlipidemia presenting for a routine health maintenance examination. The patient is on atenolol, which accounts for a heart rate in the lower range, but currently asymptomatic with no dizziness or lightheadedness attributed to the medication. Previous colonoscopy in 2019 demonstrated tubular adenoma, patient requiring future scheduling. Notable laboratory findings indicate a Vitamin D deficiency requiring sup plementation. The patient reports a familial predisposition for skin cancer and desires a dermatological evaluation. Previous assessment shows osteopenia; patient encouraged to continue lifestyle modifications. 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 1. Meniere's Disease Patient experiencing balance issues attributed to Meniere's in the right ear. Stable condition; monitor symptoms. No new interventions planned unless symptoms worsen. 2. Bradycardia Bradycardia attributed to atenolol use. Patient instructed to monitor for symptoms such as dizziness or lightheadedness, though none are currently present. Continue medication, reassess if symptoms develop. 3. Osteopenia Confirmed on previous bone density scan. Encourage weight-bearing exercises, walking routine with dog, and increased dietary calcium intake. 4. Benign Skin Lesion Suspected Patient reports a lesion not causing symptoms. Advised to leave it unless it becomes bothersome. Referral to dermatology ([facility]) for further assessment placed, particularly due to family history of skin cancer. 5. Hyperlipidemia LDL cholesterol is adequately managed at 75 on current atorvastatin therapy. Continue with current statin dose of atorvastatin 80 mg daily. 6. Vitamin D Deficiency Vitamin D supplementation recommended. Advise purchase [id number] or through insurance plan; ensure adequate intake. 7. Tubular Adenoma History Of Status post-colonoscopy in 2019 with finding of tubular adenoma. Communication with Dr. Gill's office for follow-up colonoscopy scheduling. 8. Anxiety Disorder Patient continues on citalopram 40 mg; monitor for efficacy and side effects during routine follow-up. 9- pre diabetes, diet-controlled Patient Instructions - Continue current medication regimen as prescribed. - Notify if experiencing new symptoms of dizziness or lightheadedness. - Engage in regular physical activity, particularly weight-bearing exercises like walking, and increase dietary calcium. - Start Vitamin D supplementation and follow recommended dosing. - Await scheduling for follow-up colonoscopy to reassess tubular adenoma. - Contact [facility] for skin lesion evaluation and ensure referral is processed. - Maintain awareness of Meniere's symptoms; report any changes. - Follow up with yearly mammogram as scheduled. Orders: Orders Complete Blood Count Auto Diff Today E66.01 - Morbid (severe) obesity due to excess calories, E78.9 - Disorder of lipoprotein metabolism, unspecified, I10 - Essential (primary) hypertension, I25.10 - Atherosclerotic heart disease of [place] coronary artery without angina pectoris, R73.03 - Prediabetes, Z68.35 - Body mass index [BMI] 35.0-35.9, adult Comprehensive Met. Panel Today E66.01 - Morbid (severe) obesity due to excess calories, E78.9 - Disorder of lipoprotein metabolism, unspecified, I10 - Essential (primary) hypertension, I25.10 - Atherosclerotic heart disease of [place] coronary artery without angina pectoris, R73.03 - Prediabetes, Z68.35 - Body mass index [BMI] 35.0-35.9, adult Hemoglobin A1c Today R73.03 - Prediabetes Referrals Dermatology Referral Z12.83 - Encounter for screening for malignant neoplasm of skin Medications: New cholecalciferol (vitamin D3) 25 mcg PO DAILY 90 days 90 caps 1RF
== END 2024-09-06 12:46 | disposition home or self-care (01) ==
PROVIDERS: PCP Internal Medicine; Visit Provider Internal Medicine
DX: Z00.00 Encounter for general adult medical examination without abnormal findings (principal); F33.42 Major depressive disorder, recurrent, in full remission; E66.01 Morbid (severe) obesity due to excess calories; Z68.35 Body mass index [BMI] 35.0-35.9, adult; D36.9 Benign neoplasm, unspecified site; Z12.83 Encounter for screening for malignant neoplasm of skin; I10 Essential (primary) hypertension; D49.2 Neoplasm of unspecified behavior of bone, soft tissue, and skin; R73.03 Prediabetes; E78.9 Disorder of lipoprotein metabolism, unspecified; I25.10 Atherosclerotic heart disease of native coronary artery without angina pectoris; R00.1 Bradycardia, unspecified

== ENCOUNTER → 2024-09-06 12:15 | Outpatient (BNVA) | payer MEDICARE, SELFPAY | PROVIDERS: PCP Internal Medicine; Visit Provider Internal Medicine | DX: Z00.01 Encounter for general adult medical examination with abnormal findings (principal); D36.9 Benign neoplasm, unspecified site; I10 Essential (primary) hypertension; D49.2 Neoplasm of unspecified behavior of bone, soft tissue, and skin; F33.42 Major depressive disorder, recurrent, in full remission; E66.01 Morbid (severe) obesity due to excess calories; Z68.35 Body mass index [BMI] 35.0-35.9, adult; R73.03 Prediabetes; E78.9 Disorder of lipoprotein metabolism, unspecified; I25.10 Atherosclerotic heart disease of native coronary artery without angina pectoris; R00.1 Bradycardia, unspecified; Z71.3 Dietary counseling and surveillance | CPT/HCPCS: 99212; 99397 ==

== ENCOUNTER 2024-10-11 14:51 | Outpatient (AMB) | payer MEDICARE, SELFPAY ==
[2024-10-11 14:55] VITALS: BP 132/78; PULSE 81; O2SAT 98; BMI 33.1
--- NOTE | 2024-10-11 14:55 | A.OFFPC_ITS ---
Vital Signs 3 10/11/24 14:55 Height 5 ft 3 in Weight 187 lb BMI 33.1 BP 132/78 Blood Pressure Location Lt brachial Position Sitting Pulse 81 Pulse Source Pulse Oximeter Pulse Oximetry (%) 98 Oxygen Delivery Method Room Air Intake Visit Reasons: HDF/[facility]/Fall Allergies oxycodone [OXYCODONE] Adverse Reaction (Intermediate, Verified 10/11/24 14:55) SEVERE VOMITING Medication List - Last Reconciled 10/11/24 by Gela Patel MD aspirin (Ecotrin Low Strength) 81 mg PO DAILY 90 days atorvastatin 80 mg PO DAILY 90 days carvedilol 3.125 mg PO BID chlorthalidone 25 mg PO DAILY cholecalciferol (vitamin D3) 25 mcg PO DAILY 90 days citalopram 40 mg PO DAILY ezetimibe 10 mg PO DAILY losartan 50 mg PO DAILY nifedipine ER 30 mg PO DAILY potassium chloride ER 10 mEq PO DAILY Tobacco use date assessed: 10/11/24 Fall risk assessment: 1 Fall in past year Last assessed Fall Risk: 10/11/24 Dental Screening Dental Screen Date: 10/11/24 Did you have a dental visit in the last 12 months?: No Did you have a dental problem in the last 6 months where you did not have access to dental care?: No Was dental information given to patient?: No HPI HDF/[facility]/Fall 2 HPI0 Details Patient is 69-year-old female who ended up in emergency room [facility] yesterday after having a syncopal episode Patient has a history of coronary artery disease, she was standing outside smoking cigarette, she bent down to pick something and that caused her to feel very dizzy and fell backwards , hitting her head against the tire of the car. She suffered a laceration to the back of her head. She did get up and walk after the incident. There was no change in vision or neck pain other than mild headache Patient had EKG done which showed normal sinus rhythm rate of [address] elevation or depressions Her hemoglobin was 15.1 Glucose 126 Patient had suturing of laceration 5-0 Ethilon 1 single suture followed by for junior Laceration was 2 cm in length linear subcutaneous She was admitted to hospital for observation And then was discharged after few hours She came in today for follow-up Her blood pressure was elevated in emergency room so her blood pressure medications were changed She is no longer on amlodipine and atenolol She is on chlorthalidone 25 mg, losartan 50 mg and nifedipine 30 mg along with carvedilol 3 point 125 b.i.d. She will return in a week for staple removal There is no more headache patient is back to her baseline and has stopped smoking Tdap was given in the emergency room FOR[facility]LY [facility], [facility] Medical History Skin lesion HTN (hypertension) CAD (coronary artery disease) On anticoagulant therapy History of Meniere's syndrome Anxiety Depression Elevated cholesterol Myocardial infarction Surgical History History of colonoscopy Stented coronary artery Hx of cholecystectomy History of superficial parotidectomy History of section Family History Father Mesothelioma Kidney stones Mother HTN (hypertension) Diverticulitis Brother HTN (hypertension) Daughter No problems noted. Maternal Grandfather No problems noted. Maternal Grandmother No problems noted. Paternal Grandfather No problems noted. Paternal Grandmother No problems noted. Other Mental health disorder Social History Housing: House Alcohol intake: current Alcohol intake frequency: holidays/special occasions only Patient Tobacco Use Status: Current everyday Tobacco user Tobacco use type: Cigarette Cigarettes Per Day: 2 Years Smoked: 10 e-Cigarette/Vaping Use: Never Used Second Hand Smoke Exposure: No service: No Current occupational status: retired Cognitive needs: No Hearing needs: No Vision needs: No Female Reproductive History Menstrual Age of Menarche: 10 Questionnaire PHQ-9 Over the last 2 weeks, how often have you been bothered by any of the following problems? 1. Little interest or pleasure in doing things: not at all 2. Feeling down, depressed, or hopeless: not at all 3. Trouble falling or staying asleep, or sleeping too much: not at all 4. Feeling tired or having little energy: not at all 5. Poor appetite or overeating: not at all 6. Feeling bad about yourself - or that you are a failure or have let yourself or your family down: not at all 7. Trouble concentrating on things, such as reading the newspaper or watching television: not at all 8. Moving or speaking so slowly that other people could have noticed. Or the opposite - being so fidgety or restless that you have been moving around a lot more than usual: not at all 9. Thoughts that you would be better off or of hurting yourself in some way: not at all Total score: 0 Depression Screening Interpretation: Negative Depression Screening Done: Yes 26434 - PHQ-9 Billing: Yes Source: Developed by Drs. Abad Manuel, Chetna Boudreaux, Dominic Pena and colleagues, with an educational carol from [employer]. Thrive Questionnaire Date Thrive assessed: 10/11/24 I am a: Patient What is your living situation today?: I have a steady place to live Within the past 12 months, did the food you bought not last and you didn't have the money to get more?: Never true Within the past 12 months, did you worry whether your food would run out before you got money to buy more?: Never true Do you have trouble paying for medicines?: No Do you have trouble getting transportation to medical appointments?: No Do you have trouble paying your heating and electricity bill?: No Do you have trouble taking care of your child, family member or friend?: No Do you have trouble with day-to-day activities such as bathing, preparing meals, shopping, managing finances, etc.?: No Are you currently unemployed and looking for a job?: No Are you interested in more education?: No Please select the resources that you would like help with: None Currently or been in a relationship where the following occur: No concerns reported THRIVE Score: 0 AUDIT C Alcohol Use Questionnaire (AUDIT-C) 1. How often do you have a drink containing alcohol?: Monthly or less 2. How many drinks containing alcohol do you have on a typical day when you are drinking?: 1 or 2 3. How often do you have six or more drinks on one occasion?: Never Total Score: 1 Score Reviewed/Action Taken: Yes IRVIN-7 AMB Questionnaire IRVIN-7 Date IRVIN - 7 assessed: 10/11/24 Feeling nervous, anxious, or on edge: 0 = Not at all Not being able to stop or control worryin = Not at all Worrying too much about different things: 0 = Not at all Trouble relaxin = Not at all Being so restless that it is hard to sit still: 0 = Not at all Becoming easily annoyed or irritable: 0 = Not at all Feeling afraid as if something awful might happen: 0 = Not at all Total IRVIN-7 score (0-4 normal; 5-9 mild; 10-14 moderate; 15-21 severe): 0 Source: Developed by Drs. Abad Manuel, Chetna Boudreaux, Dominic Pena and colleagues, with an educational carol from [employer]. IRVIN-7 Assessment Billing IRVIN-7 Assessment Tool: IRVIN-7 Assessment 80664 Review of Systems Const Denies chills and Denies fever(s) ENT Denies epistaxis and Denies nasal discharge Card Denies chest pain Resp Denies chest congestion, Denies cough and Denies hemoptysis GI Denies diarrhea and Denies nausea Skin/Breast Denies rash Neuro Reports no additional complaints Psych Reports no additional complaints Endo Reports no additional complaints Physical exam (Primary Care) Vital Signs: Last Vital Signs Pulse 81 10/11/24 14:55 BP 132/78 10/11/24 14:55 Pulse Ox 98 10/11/24 14:55 Oxygen Delivery Method Room Air 10/11/24 14:55 BMI result Body Mass Index 33.1 Tobacco/Smoking Status: Tobacco use Status Tobacco use date assessed 10/11/24 10/11/24 14:56 Patient Tobacco Use Status Current everyday Tobacco 10/11/24 14:56 Tobacco use type Cigarette 10/11/24 14:56 e-Cigarette/Vaping Use Never Used 10/11/24 14:56 PHQ-9: PHQ-9 Score PHQ-9: Total score 0 10/11/24 14:56 Depression Screening Interpretation: Negative Thrive Assessment: Date of Thrive Assessment Date Thrive assessed 10/11/24 10/11/24 14:56 Currently or been in a relationship where the following occur: No concerns reported Const General: cooperative, comfortable and no acute distress Orientation/consciousness: patient oriented x3 HENMT Head: Yes normocephalic Head images: 2 1. At the moment patient have lot of clotted blood all over her head which is making it difficult to see the junior Eyes General: appearance normal, both eyes and all related structures Neck Neck: Yes supple Resp Effort & Inspection: normal respiratory effort, no cough and no stridor Cardio Rhythm: regular rhythm Heart sounds: S1 normal heart sound present and S2 normal heart sound present Skin General skin exam: turgor normal Neuro General: patient oriented x3, tone normal and moves all extremities Extrem Right lower extremity: no edema Left lower extremity: no edema Coding Level of Care Code Est Pt Level 4 (63955) Diagnoses Traumatic injury of head, initial encounter S09.90XA Encounter type: initial encounter Admission for wound check of abscess Z51.89 Laceration of scalp without foreign body, subsequent encounter S01.01XD Encounter type: subsequent encounter Location of open wound of head: scalp Foreign body presence: without foreign body Additional Codes IRVIN-7 Assessment Billing - IRVIN-7 Assessment Tool: IRVIN-7 Assessment 21373 ([id number]) PHQ-9 - 34431 - PHQ-9 Billing: Yes ([id number]) Assessment & Plan Assessment & Plan (1) Head trauma: Code(s): S09.90XA - Unspecified injury of head, initial encounter Category: Medical Qualifiers: Encounter type: initial encounter Qualified Code(s): S09.90XA - Unspecified injury of head, initial encounter (2) Admission for wound check of abscess: Code(s): Z51.89 - Encounter for other specified aftercare Category: Medical (3) Laceration of head: Code(s): S01.91XA - Laceration without foreign body of unspecified part of head, initial encounter Category: Medical Qualifiers: Encounter type: subsequent encounter Location of open wound of head: s calp Foreign body presence: without foreign body Qualified Code(s): S01.01XD - Laceration without foreign body of scalp, subsequent encounter Plan Patient is 69-year-old female who ended up in emergency room [facility] yesterday after having a syncopal episode Patient has a history of coronary artery disease, she was standing outside smoking cigarette, she bent down to pick something and that caused her to feel very dizzy and fell backwards , hitting her head against the tire of the car. She suffered a laceration to the back of her head. She did get up and walk after the incident. There was no change in vision or neck pain other than mild headache Patient had EKG done which showed normal sinus rhythm rate of [address] elevation or depressions Her hemoglobin was 15.1 Glucose 126 Patient had suturing of laceration 5-0 Ethilon 1 single suture followed by for junior Laceration was 2 cm in length linear subcutaneous She was admitted to hospital for observation And then was discharged after few hours She came in today for follow-up Her blood pressure was elevated in emergency room so her blood pressure medications were changed She is no longer on amlodipine and atenolol She is on chlorthalidone 25 mg, losartan 50 mg and nifedipine 30 mg along with carvedilol 3 point 125 b.i.d. She will return in a week for staple removal There is no more headache patient is back to her baseline and has stopped smoking Tdap was given in the emergency room
== END 2024-10-11 15:47 | disposition home or self-care (01) ==
PROVIDERS: PCP Internal Medicine; Visit Provider Internal Medicine
DX: S09.90XA Unspecified injury of head, initial encounter (principal); Z51.89 Encounter for other specified aftercare; S01.01XD Laceration without foreign body of scalp, subsequent encounter

== ENCOUNTER → 2024-10-11 14:51 | Outpatient (BNVA) | payer MEDICARE, SELFPAY | PROVIDERS: PCP Internal Medicine; Visit Provider Internal Medicine | DX: S01.01XD Laceration without foreign body of scalp, subsequent encounter (principal); S09.90XD Unspecified injury of head, subsequent encounter; X58.XXXD Exposure to other specified factors, subsequent encounter; Z51.89 Encounter for other specified aftercare | CPT/HCPCS: 96127; 99212 ==

== ENCOUNTER 2024-10-18 09:45 | Outpatient (AMB) | payer MEDICARE, SELFPAY ==
--- NOTE | 2024-10-18 10:07 | A.OFFPC_ITS ---
Vital Signs 10/18/24 10:09 Height 5 ft 3 in Weight 187 lb BMI 33.1 BP 140/82 H Blood Pressure Location Lt brachial Position Sitting Pulse 89 Pulse Source Pulse Oximeter Pulse Oximetry (%) 97 Oxygen Delivery Method Room Air Intake Visit Reasons: 1 week f/up - per dr. Patel Allergies oxycodone [OXYCODONE] Adverse Reaction (Intermediate, Verified 10/18/24 10:10) SEVERE VOMITING Medication List - Last Reconciled 10/18/24 by Gela Patel MD aspirin (Ecotrin Low Strength) 81 mg PO DAILY 90 days atorvastatin 80 mg PO DAILY 90 days carvedilol 3.125 mg PO BID chlorthalidone 25 mg PO DAILY cholecalciferol (vitamin D3) 25 mcg PO DAILY 90 days citalopram 40 mg PO DAILY ezetimibe 10 mg PO DAILY losartan 50 mg PO DAILY nifedipine ER 30 mg PO DAILY potassium chloride ER 10 mEq PO DAILY Tobacco use date assessed: 10/18/24 Fall risk assessment: No Falls in past year Last assessed Fall Risk: 10/18/24 Dental Screening Dental Screen Date: 10/18/24 Did you have a dental visit in the last 12 months?: Yes Did you have a dental problem in the last 6 months where you did not have access to dental care?: No Was dental information given to patient?: Patient has dentist HPI 1 week f/up - per dr. Patel HPI Details - The patient is a 69-year-old female pr esenting with a follow-up for post- procedural recovery. - Post-procedural neck discomfort has be en noted. An X-ray and CT scan were conducted during her hospital visit. - The patient received four junior and is monitoring for dissolving stitches, with minor worried about clotted hair preventing washing. - Medication review discusses her extens donnell regimen for hypertension, cholesterol, and depression, including potassium for hypokalemia identified in the hospital. - Blood pressure fluctuates between wris t (115 mmHg) and arm monitors (130-140 mmHg) Plan Post-procedural cervical pain will be assessed continuously, with the patient advised to cautiously engage in hair washing. Medication management encompasses atorvastatin, carvedilol, losartan, and nifedipine for hypertension and lipid control, with therapy adjustments likely pending future lab assessments. Re- evaluation of potassium supplementation is planned, possibly ceasing after subsequent measurements. Continued vitamin D intake is necessary owing to past deficiencies. Accurate blood pressure checks via arm cuff are stressed, with adaptations in treatment contemplated. Patient Instructions - You may wash your hair, be careful edgar und the stitched area. - Monitor your blood pressure using an u pper arm cuff for more accurate readin gs. - Continue taking your current medicatio ns and vitamin D supplement unless instructed otherwise. - Report any new or worsening symptoms p romptly. Procedure: For junior removed from parieto-occipital area without any complications Review of Systems - Neck: Reports discomfort post-procedur e. - Gastrointestinal: Denies additional di gestive issues. - General: Reports feeling fine overall. - General: No fever no chills - Neurological: No headaches no dizziness - Ear nose throat: No sore throat no hearing difficulty no ear pain - Cardiovascular: No syncope, no chest pain, no palpitations - Gastrointestinal: No nausea vomiting or diarrhea - Endocrine: No polyuria polydipsia no heat intolerance - Genitourinary: No dysuria , no blood in urine Physical Exam General: No acute distress HEENT: No acute findings Neck: Supple, with junior present Respiratory system: Able to talk in full sentences, no audible wheeze cardiovascular: S1-S2 regular in rate and rhythm Gastrointestinal: No pain Extremities: No new findings CLINICAL COORDINATOR: Alert awake oriented x3 motor sensory intact Skin: Normal turgor, no swelling noted PFSH Medical History Skin lesion HTN (hypertension) CAD (coronary artery disease) On anticoagulant therapy History of Meniere's syndrome Anxiety Depression Elevated cholesterol Myocardial infarction Surgical History History of colonoscopy Stented coronary artery Hx of cholecystectomy History of superficial parotidectomy History of section Family History Father Mesothelioma Kidney stones Mother HTN (hypertension) Diverticulitis Brother HTN (hypertension) Daughter No problems noted. Maternal Grandfather No problems noted. Maternal Grandmother No problems noted. Paternal Grandfather No problems noted. Paternal Grandmother No problems noted. Other Mental health disorder Social History Housing: House Alcohol intake: current Alcohol intake frequency: holidays/special occasions only Patient Tobacco Use Status: Current everyday Tobacco user Tobacco use type: Cigarette Cigarettes Per Day: 2 Years Smoked: 10 e-Cigarette/Vaping Use: Never Used Second Hand Smoke Exposure: No service: No Current occupational status: retired Cognitive needs: No Hearing needs: No Vision needs: No Female Reproductive History Menstrual Age of Menarche: 10 Questionnaire PHQ-9 Over the last 2 weeks, how often have you been bothered by any of the following problems? 1. Little interest or pleasure in doing things: not at all 2. Feeling down, depressed, or hopeless: not at all 3. Trouble falling or staying asleep, or sleeping too much: not at all 4. Feeling tired or having little energy: not at all 5. Poor appetite or overeating: not at all 6. Feeling bad about yourself - or that you are a failure or have let yourself or your family down: not at all 7. Trouble concentrating on things, such as reading the newspaper or watching television: not at all 8. Moving or speaking so slowly that other people could have noticed. Or the opposite - being so fidgety or restless that you have been moving around a lot more than usual: not at all 9. Thoughts that you would be better off or of hurting yourself in some way: not at all Total score: 0 Depression Screening Interpretation: Negative Depression Screening Done: Yes 68726 - PHQ-9 Billing: Yes Source: Developed by Drs. Abad Manuel, Chetna Boudreaux, Dominic Pena and colleagues, with an educational carol from [employer]. Thrive Questionnaire Date Thrive assessed: 10/18/24 I am a: Patient What is your living situation today?: I have a steady place to live Within the past 12 months, did the food you bought not last and you didn't have the money to get more?: Never true Within the past 12 months, did you worry whether your food would run out before you got money to buy more?: Never true Do you have trouble paying for medicines?: No Do you have trouble getting transportation to medical appointments?: No Do you have trouble paying your heating and electricity bill?: No Do you have trouble taking care of your child, family member or friend?: No Do you have trouble with day-to-day activities such as bathing, preparing meals, shopping, managing finances, etc.?: No Are you currently unemployed and looking for a job?: No Are you interested in more education?: No Please select the resources that you would like help with: None Currently or been in a relationship where the following occur: No concerns reported THRIVE Score: 0 AUDIT C Alcohol Use Questionnaire (AUDIT-C) 1. How often do you have a drink containing alcohol?: Monthly or less 2. How many drinks containing alcohol do you have on a typical day when you are drinking?: 1 or 2 3. How often do you have six or more drinks on one occasion?: Never Total Score: 1 Score Reviewed/Action Taken: Yes IRVIN-7 AMB Questionnaire IRVIN-7 Date IRVIN - 7 assessed: 10/18/24 Feeling nervous, anxious, or on edge: 0 = Not at all Not being able to stop or control worryin = Not at all Worrying too much about different things: 0 = Not at all Trouble relaxin = Not at all Being so restless that it is hard to sit still: 0 = Not at all Becoming easily annoyed or irritable: 0 = Not at all Feeling afraid as if something awful might happen: 0 = Not at all Total IRVIN-7 score (0-4 normal; 5-9 mild; 10-14 moderate; 15-21 severe): 0 Source: Developed by Drs. Abad Manuel, Chetna Boudreaux, Dominic Pena and colleagues, with an educational carol from [employer]. IRVIN-7 Assessment Billing IRVIN-7 Assessment Tool: IRVIN-7 Assessment 15969 Physical exam (Primary Care) Vital Signs: Last Vital Signs Pulse 89 10/18/24 10:09 BP 140/82 H 10/18/24 10:09 Pulse Ox 97 10/18/24 10:09 Oxygen Delivery Method Room Air 10/18/24 10:09 BMI result Body Mass Index 33.1 Tobacco/Smoking Status: Tobacco use Status Tobacco use date assessed 10/18/24 10/18/24 10:10 Patient Tobacco Use Status Current everyday Tobacco 10/18/24 10:08 Tobacco use type Cigarette 10/18/24 10:08 e-Cigarette/Vaping Use Never Used 10/18/24 10:08 PHQ-9: PHQ-9 Score PHQ-9: Total score 0 10/18/24 10:10 Depression Screening Interpretation: Negative Thrive Assessment: Date of Thrive Assessment Date Thrive assessed 10/18/24 10/18/24 10:10 Currently or been in a relationship where the following occur: No concerns reported Coding Level of Care Code Est Pt Level 4 (42983) Complex EM visit Add On G2211 Diagnoses Primary hypertension I10 Hypertension type: primary hypertension Visit for wound check Z51.89 Encounter for staple removal Z48.02 Lipid disorder E78.9 Pre-diabetes R73.03 Class 2 severe obesity due to excess calories with serious comorbidity and body mass index (BMI) of 35.0 to 35.9 in adult E66.01; Z68.35 Body mass index: BMI 35.0-35.9 Obesity classification: adult class 2 (BMI 35 - 39.9) Serious obesity comorbidity presence: with serious comorbidity Recurrent major depressive disorder, in full remission F33.42 Active/Remission status: in full remission Obesity (BMI 30.0-34.9) E66.9 Osteopenia, unspecified location M85.80 Osteopenia location: unspecified Hypokalemia E87.6 Additional Codes IRVIN-7 Assessment Billing - IRVIN-7 Assessment Tool: IRVIN-7 Assessment 65983 ([id number]) PHQ-9 - 77041 - PHQ-9 Billing: Yes ([id number]) Assessment & Plan Assessment & Plan (1) HTN (hypertension): Code(s): I10 - Essential (primary) hypertension Category: Medical Qualifiers: Hypertension type: primary hypertension Qualified Code(s): I10 - Essential (primary) hypertension (2) Visit for wound check: Code(s): Z51.89 - Encounter for other specified aftercare Category: Medical (3) Encounter for staple removal: Code(s): Z48.02 - Encounter for removal of sutures Category: Medical (4) Lipid disorder: Code(s): E78.9 - Disorder of lipoprotein metabolism, unspecified Category: Medical (5) Pre-diabetes: Code(s): R73.03 - Prediabetes Category: Medical (6) Obesity due to excess calories: Code(s): E66.09 - Other obesity due to excess calories Category: Medical Qualifiers: Body mass index: BMI 35.0-35.9 Obesity classification: adult class 2 (BMI 35 - 39.9) Serious obesity comorbidity presence: with serious comorbidity Qualified Code(s): E66.01 - Morbid (severe) obesity due to excess calories; Z68.35 - Body mass index [BMI] 35.0-35.9, adult (7) Major depression, recurrent: Code(s): F33.9 - Major depressive disorder, recurrent, unspecified Category: Medical Qualifiers: Active/Remission status: in full remission Qualified Code(s): F33.42 - Major depressive disorder, recurrent, in full remission (8) Obesity (BMI 30.0-34.9): Code(s): E66.9 - Obesity, unspecified Category: Medical (9) Osteopenia: Code(s): M85.80 - Other specified disorders of bone density and structure, unspecified site Category: Medical Qualifiers: Osteopenia location: unspecified Qualified Code(s): M85.80 - Other specified disorders of bone density and structure, unspecified site (10) Hypokalemia: Code(s): E87.6 - Hypokalemia Category: Medical Plan - The patient is a 69-year-old female presenting with a follow-up for post- procedural recovery. - Post-procedural neck discomfort has been noted. An X-ray and CT scan were conducted during her hospital visit. - The patient received four junior and is monitoring for dissolving stitches, with minor worried about clotted hair preventing washing. - Medication review discusses her extensive regimen for hypertension, choleste rol, and depression, including potassium for hypokalemia identified in the hospital. - Blood pressure fluctuates between wrist (115 mmHg) and arm monitors (130-140 mmHg) Plan Post-procedural cervical pain will be assessed continuously, with the patient advised to cautiously engage in hair washing. Medication management encompasses atorvastatin, carvedilol, losartan, and nifedipine for hypertension and lipid control, with therapy adjustments likely pending future lab assessments. Re- evaluation of potassium supplementation is planned, possibly ceasing after subsequent measurements. Continued vitamin D intake is necessary owing to past deficiencies. Accurate blood pressure checks via arm cuff are stressed, with adaptations in treatment contemplated. Lab order placed to re-evaluate electrolytes Patient Instructions - You may wash your hair, be careful around the stitched area. - Monitor your blood pressure using an upper arm cuff for more accurate readings. - Continue taking your current medications and vitamin D supplement unless instructed otherwise. - Report any new or worsening symptoms promptly. Procedure: For junior removed from parieto-occipital area without any complic ations Orders: Orders LDL Cholesterol Direct Today E66.01 - Morbid (severe) obesity due to excess calories, E78.9 - Disorder of lipoprotein metabolism, unspecified, F33.42 - Major depressive disorder, recurrent, in full remission, R73.03 - Prediabetes, Z68.35 - Body mass index [BMI] 35.0-35.9, adult Hemoglobin A1c Today E66.01 - Morbid (severe) obesity due to excess calories, E78.9 - Disorder of lipoprotein metabolism, unspecified, F33.42 - Major depressive disorder, recurrent, in full remission, R73.03 - Prediabetes, Z68.35 - Body mass index [BMI] 35.0-35.9, adult Complete Blood Count Auto Diff Today E66.01 - Morbid (severe) obesity due to excess calories, E78.9 - Disorder of lipoprotein metabolism, unspecified, F33.42 - Major depressive disorder, recurrent, in full remission, R73.03 - Prediabetes, Z68.35 - Body mass index [BMI] 35.0-35.9, adult Comprehensive Met. Panel Today E66.01 - Morbid (severe) obesity due to excess calories, E78.9 - Disorder of lipoprotein metabolism, unspecified, F33.42 - Major depressive disorder, recurrent, in full remission, R73.03 - Prediabetes, Z68.35 - Body mass index [BMI] 35.0-35.9, adult
[2024-10-18 10:09] VITALS: BP 140/82; PULSE 89; O2SAT 97; BMI 33.1
== END 2024-10-18 11:03 | disposition home or self-care (01) ==
PROVIDERS: PCP Internal Medicine; Visit Provider Internal Medicine
DX: I10 Essential (primary) hypertension (principal); Z51.89 Encounter for other specified aftercare; Z48.02 Encounter for removal of sutures; E78.9 Disorder of lipoprotein metabolism, unspecified; R73.03 Prediabetes; E66.01 Morbid (severe) obesity due to excess calories; Z68.35 Body mass index [BMI] 35.0-35.9, adult; F33.42 Major depressive disorder, recurrent, in full remission; E66.9 Obesity, unspecified; M85.80 Other specified disorders of bone density and structure, unspecified site; E87.6 Hypokalemia

== ENCOUNTER → 2024-10-18 09:45 | Outpatient (BNVA) | payer MEDICARE, SELFPAY | PROVIDERS: PCP Internal Medicine; Visit Provider Internal Medicine | DX: I10 Essential (primary) hypertension (principal); E78.9 Disorder of lipoprotein metabolism, unspecified; R73.03 Prediabetes; E66.01 Morbid (severe) obesity due to excess calories; F33.42 Major depressive disorder, recurrent, in full remission; M85.80 Other specified disorders of bone density and structure, unspecified site; M54.2 Cervicalgia; E87.6 Hypokalemia; Z68.35 Body mass index [BMI] 35.0-35.9, adult; Z51.89 Encounter for other specified aftercare; Z48.02 Encounter for removal of sutures | CPT/HCPCS: 96127; 99212 ==

== ENCOUNTER 2025-01-03 08:12 | Emergency (ER) | payer MEDICARE, SELFPAY ==
--- NOTE | 2025-01-03 | ECG_ITS ---
Test Reason : cp Blood Pressure : */* mmHG Vent. Rate : 66 BPM Atrial Rate : 66 BPM P-R Int : 174 ms QRS Dur : 80 ms QT Int : 428 ms P-R-T Axes : 26 -47 54 degrees QTcB Int : 448 ms Normal sinus rhythm Left axis deviation Anterior infarct , age undetermined Abnormal ECG When compared with ECG of 31-Jul-2020 10:22, No significant changes seen Referred By: Generic ED Physician Electronically Signed By: RALPH CHAIREZ
--- NOTE | ~2025-01-03 | CT_ITS ---
EXAMINATION: CT HEAD WITHOUT IV CONTRAST HISTORY: status of subdural hematoma. TECHNIQUE: Unenhanced helical CT of the head was performed per standard departmental protocol. Coronal and sagittal reformats of the head were also evaluated. One or more of the following techniques was used for dose reduction: Automated exposure control, adjustment of the mA and/or kV according to patient size, use of iterative reconstruction technique. DLP: 711 mGy-cm COMPARISON: There are no prior studies for comparison. FINDINGS: BRAIN: There is mild prominence of the ventricular system and cortical sulci, consistent with atrophy. Porter/white differentiation is normal. There is no mass effect or midline shift. . There is a small isodense left frontoparietal subdural fluid collection measuring up to 6 mm in thickness. No additional fluid collections are identified. SINUSES: The visualized paranasal sinuses are clear. The mastoid air cells and middle ear cavities are well pneumatized. ORBITS: The visualized orbits are unremarkable. BONES/SOFT TISSUES: The extracranial soft tissues are unremarkable. The calvarium is intact. No suspicious lytic or sclerotic lesions. CT/CT head/brain wo IV con IMPRESSION: Isodense left frontoparietal subdural fluid collection measuring up to 6 mm in thickness. Comparison with prior outside studies is recommended. Electronically signed by: Abad Perera MD 01/03/2025 02:34 PM EDT
--- NOTE | ~2025-01-03 | CT_ITS ---
EXAMINATION: CT ANGIOGRAM CHEST CLINICAL INFORMATION: Elevated d-dimer, right-sided pleuritic chest pain. COMPARISON: None available. TECHNIQUE: Multiple axial images were obtained through the chest after the administration of 65 mL of Omnipaque 350 intravenous contrast. Extensive vascular post-processing including two-dimensional and three-dimensional reformatted images were created and reviewed on an independent workstation. This CT examination was performed using dose optimization techniques as appropriate, variously including the following: *Automated exposure control *Adjustment of mA and/or kV according to patient size (this includes techniques or standardized protocols for targeted exams where dose is matched to indication/reason for exam; i.e. extremities or head) *Use of iterative reconstruction technique FINDINGS: VASCULAR: There are bilateral pulmonary emboli with a moderate clot burden present. There is no right heart strain pattern, and there is no reflux of contrast into the hepatic veins. The main pulmonary artery is mildly prominent in caliber measuring up to 3.2 cm. The aorta is normal in caliber, course, and branching pattern. There is minimal calcific atheromatous plaque. There is no evidence of acute aortic syndrome or aneurysm. There is mild cardiac enlargement. There is no pericardial effusion. LUNGS: There are tiny bilateral pleural effusions. There is associated mild passive atelectasis of both lower lobes. There is more significant groundglass opacity segmentally in the right lower lobe, nonspecific. There are hypoventilatory changes in both lungs, with expiratory appearance, and inward bowing of the posterior membranous trachea. There is no pneumothorax. No suspicious pulmonary nodule within confines of expiratory appearance. MEDIASTINUM: Normal thyroid. No lymphadenopathy or mass. Somewhat patulous appearing esophagus, with a small to moderate-sized type I hiatus hernia. AXILLA/CHEST WALL: Normal. UPPER ABDOMEN: There is a cholecystectomy. Remainder of the imaged upper abdominal contents appear normal. OSSEOUS STRUCTURES: No suspicious lytic or blastic bone lesions. There are moderate degenerative changes throughout the spine. CT/CT angio chest PE protocol IMPRESSION: 1. Bilateral pulmonary emboli, moderate clot burden. No right heart strain pattern, and no reflux of contrast into the hepatic veins. Study does not meet criteria for submassive PE. 2. No evidence of acute aortic syndrome or aneurysm. 3. Expiratory appearance to the lungs, limiting evaluation of parenchymal findings. There is passive atelectasis in the left lower lobe. There is patchy groundglass opacity and subsegmental consolidation in the right base, nonspecific. Differential includes atelectasis, pulmonary infarct, and pneumonia. 4. There are tiny pleural effusions bilaterally. 5. There is mild cardiac enlargement. 6. Additional ancillary findings as discussed above. Findings were discussed with Ashley MARTINEZ of the [facility] via phone call at 11:00 AM, 01/03/2025. Electronically signed by: Saji Henderson MD 01/03/2025 11:23 AM EDT
--- NOTE | ~2025-01-03 | US_ITS ---
EXAMINATION: US TRIPLEX LOWER EXTREMITY, BILATERAL CLINICAL INFORMATION: Pulmonary emboli. COMPARISON: None available. TECHNIQUE: Color-flow triplex imaging with spectral analysis and compression Doppler were performed on the bilateral lower extremities. FINDINGS: Right lower extremity: There is partial compressibility within the interrogated the peroneal veins. There is normal phasic flow and compressibility from the right common femoral vein to the right popliteal vein. Left lower extremity: There is partial compressibility from the left posterior tibialis vein. There is normal phasic flow and compressibility from the left common femoral vein to the left popliteal vein. There is no Harris's cyst. US/US venous duplex LE BI IMPRESSION: Nonocclusive thrombus involving the right peroneal vein and the left posterior tibialis vein. Positive exam. Electronically signed by: Benedicto Rivera MD 01/03/2025 01:27 PM EDT
[2025-01-03 08:24] VITALS: BP 101/42; PULSE 74; RESP 18; TEMP 36.6; O2SAT 98; BMI 33.3
[2025-01-03 09:06] LABS: MANUAL DIFF FLAG NO
[2025-01-03 09:08] LABS: Basophils Percent Auto 0.2 % (0-2); Eosinophils Absolute Auto 0.1 X10*3/uL (0.0-0.4); Eosinophils Percent Auto 1.1 % (0-4); Hematocrit 37.1 % (37.0-47.0); Hemoglobin 12.8 g/dl (12.0-16.0); Imm Gran Abs Auto 0.05 X10*3/uL (0.00-0.03); Imm Gran Pct Auto 0.4 % (0.0-0.4); Lymphocytes Absolute Auto 1.6 X10*3/uL (1.2-4.9); Lymphocytes Percent Auto 13.1 % (20-40); Mean Corpuscular HGB Conc 34.5 g/dl (31.0-35.0); Mean Corpuscular Hemoglobin 29.8 pg (27.0-33.0); Mean Corpuscular Volume 86.5 fL (80.0-98.0); Mean Platelet Volume 8.8 fL (9.4-12.3); Monocytes Absolute Auto 0.6 X10*3/uL (0.1-1.2); Monocytes Percent Auto 4.8 % (2-11); Neutrophils Absolute Auto 9.9 x10*3/uL (2.0-8.3); Neutrophils Percent Auto 80.4 % (45-73); Platelet Count 177 X10*3/uL (160-400); Red Blood Count 4.29 X10*6/uL (4.20-5.50); Red Cell Distribution Width 13.2 % (11.0-16.0); White Blood Count 12.3 X10*3/uL (4.8-10.8)
[2025-01-03 09:17] LABS: D Dimer High Sensitivity 2631 NG/ML
[2025-01-03 09:34] LABS: Alanine Aminotransferase 11 U/L (0-31); Albumin Level 3.2 g/dL (3.5-5.0); Alkaline Phosphatase 30 U/L (39-117); Anion Gap 9 (12-20); Aspartate Amino Transferase 24 U/L (5-31); Bilirubin Total 1.1 mg/dL (0.0-1.0); Blood Urea Nitrogen 13 mg/dL (9-16); Calcium 8.7 mg/dL (8.4-10.2); Carbon Dioxide 23 mmol/L (22-29); Chloride 112 mmol/L (96-108); Creatinine Clr Calc Pharmacy 61.5; Estimated Glomerular Filt Rate > 60; Glucose Random 111 mg/dL (60-115); Sodium 140 mmol/L (135-145); Total Protein 6.1 g/dL (6.5-8.0)
[2025-01-03 10:00] VITALS: BP 114/78; BP 115/51; PULSE 56; PULSE 65; RESP 22; RESP 24; TEMP 36.6; O2SAT 94; O2SAT 98
--- NOTE | 2025-01-03 10:15 | PC.NURSE ---
patient oxygen desaturations at rest on stretcher to 88%. patient placed on 2L NC. made aware.
--- NOTE | 2025-01-03 10:43 | ED.CHESTPAIN ---
HPI - Chest Pain General Chief Complaint: Chest Pain Stated Complaint: Pain R side Time Seen by Provider: 01/03/25 10:37 Source: patient and family () Mode of arrival: ambulatory Limitations: no limitations History of Present Illness ED Provider: ASHLEY SANDY PA-C HPI narrative: 69-year-old female with past medical history significant for HTN, HLD, CAD, OK with 2 stents, depression, anxiety presents to the ED today with her for evaluation of right-sided chest pain that began last night while lying in bed. Pain is localized to right sided. Reports significant pain with laughing and deep breathing. Reports occasional dry cough. No hemoptysis. No history of VTE. Not on AC. Patient used to smoke tobacco. Of note, patient had a mechanical fall back on October 08, 2024. She was evaluated at [facility] for this and was diagnosed with a traumatic subdural hematoma. She was eventually discharged from the facility. Approximately 1 week ago, she began to develop speech difficulties and right-sided weakness. She was re-evaluated at [facility] at that time. She was told that her subdural hematoma was expanding. Her neuro deficits eventually resolved and she was discharged home on dexamethasone and Keppra. She has been taking these as prescribed. Related Data Home Medications ?Medication ?Instructions ?Recorded ?Confirmed potassium chloride 10 mEq 10 meq PO DAILY 10/11/24 10/18/24 tablet,extended release Previous Rx's ?Medication ?Instructions ?Recorded aspirin 81 mg tablet,delayed 81 mg PO DAILY 90 days #90 tabs 08/21/23 release (Ecotrin Low Strength) atorvastatin 80 mg tablet 80 mg PO DAILY 90 days #90 tabs 07/19/24 citalopram 40 mg tablet 40 mg PO DAILY #90 tabs 07/19/24 cholecalciferol (vitamin D3) 25 25 mcg PO DAILY 90 days #90 caps 09/06/24 mcg (1,000 unit) capsule carvedilol 3.125 mg tablet 3.125 mg PO BID 90 days #180 tabs 11/15/24 chlorthalidone 25 mg tablet 25 mg PO DAILY #90 tabs 11/15/24 losartan 50 mg tablet 50 mg PO DAILY #90 tabs 11/15/24 nifedipine 30 mg tablet,extended 30 mg PO DAILY #90 tabs 11/15/24 release ezetimibe 10 mg tablet 10 mg PO DAILY #90 tabs 12/09/24 Allergies Allergy/AdvReac Type Severity Reaction Status Date / Time oxycodone [OXYCODONE] AdvReac Intermediate SEVERE Verified 01/03/25 08:28 VOMITING Review of Systems Review of Systems: Yes all other systems are reviewed and are negative [facility] Past Medical History Attestation statement: The following information was validated with the patient. Source: old records reviewed, obtained from family and nursing notes reviewed Medical History Skin lesion HTN (hypertension) CAD (coronary artery disease) On anticoagulant therapy History of Meniere's syndrome Anxiety Depression Elevated cholesterol Myocardial infarction Surgical History History of colonoscopy Stented coronary artery Hx of cholecystectomy History of superficial parotidectomy History of section Family History Family History Father Mesothelioma Kidney stones Mother HTN (hypertension) Diverticulitis Brother HTN (hypertension) Daughter No problems noted. Maternal Grandfather No problems noted. Maternal Grandmother No problems noted. Paternal Grandfather No problems noted. Paternal Grandmother No problems noted. Other Mental health disorder Social History Social History Housing: House Alcohol intake: current Alcohol intake frequency: holidays/special occasions only Patient Tobacco Use Status: Current everyday Tobacco user Tobacco use type: Cigarette Cigarettes Per Day: 2 Years Smoked: 10 e-Cigarette/Vaping Use: Never Used Second Hand Smoke Exposure: No service: No Current occupational status: retired Cognitive needs: No Hearing needs: No Vision needs: No Physical Exam Vital Signs: Vital Signs: Last Vital Signs Temp 97.9 F 01/03/25 21:06 Pulse 59 01/03/25 21:06 Resp 20 01/03/25 21:06 BP 114/53 L 01/03/25 21:06 Pulse Ox 96 01/03/25 21:06 O2 Del Method Room Air 01/03/25 21:06 O2 Flow Rate 2 01/03/25 19:49 BMI result Body Mass Index 33.3 Tachypneic General: Well appearing, in no acute distress. Skin: Warm, dry, intact. No rashes or lesions. Head: Normocephalic, atraumatic. EENT: Hearing is intact b/l. Conjunctiva clear. PERRLA. EOM intact. Moist mucous membranes.? Cardiac: Chest wall symmetric. RRR. No JVD. Lungs: Normal respiratory effort without accessory muscle use. CTA bilaterally. no adventitious breath sounds. Abdomen: Soft, non-tender, non-distended. No rebound tenderness or guarding. Positive BS x4. Back: No midline spinous or paraspinal tenderness. No step off deformity. Ext: Upper and lower extremities atraumatic, without tenderness, deformity, swelling or erythema. no calf tenderness/swelling. Neuro: AOx3. Normal speech. NIH 0. Strength 5/5 intact throughout. Sensation intact to light touch. NV intact distally. Ambulating with steady gait. Psych: Appropriate mood and affect. Responds appropriately to questions. Course Course Course Narrative: 1043 -- leukocytosis to 12.3 with left shift. No anemia. H&H stable. Chemistry without acute electrolyte abnormality requiring intervention. No SARY. Liver function at baseline. troponin 7. EKG showing normal sinus rhythm with a rate of 66 beats per minute, QT 428, QTC 448, nonspecific T-wave abnormality in inferior lead. no ST elevations. no afib. > D-dimer elevated to 2631. Concern for PE. CT angio chest ordered for r/o 1202 -- CT chest shows bilateral pulmonary emboli with moderate clot burden. No right heart strain pattern, no reflux of contrast into the hepatic veins. Study does not meet criteria for submassive PE. No evidence of aortic aneurysm. Tiny bilateral pleural effusions. Mild cardiac enlargement. > still awaiting for records from [facility] > I reached out to vascular surgeon, Dr. Novak. He has reviewed most recent brain MRI obtained on 12/22/24 at [facility]. MRI Brain W/O Contrast INDICATION / CLINICAL QUESTION: Right arm weakness and word finding difficulty. TECHNIQUE: MRI of the brain was performed without contrast utilizing sagittal T1, axial T2, axial FLAIR, axial SWAN, and axial DWI sequences. COMPARISON: Comparison made to CT head, 12/21/2017 and 12/20/2017. FINDINGS: BRAIN and EXTRA-AXIAL SPACES: There is no evidence of restricted diffusion to suggest acute infarction. There is a T1 bright subdural collection over the left superior frontal and parietal convexities, with thin component extending over the temporal convexity and anterior frontal lobe. Small internal areas of low T2 signal with susceptibility are seen corresponding to the areas of more recent hemorrhage is seen on CT. Trace subdural is also seen over the superior right frontal and temporal convexities. There is no significant mass effect on the underlying parenchyma. In addition, high FLAIR signal is seen within the left superior frontal and parietal lobe sulci suggesting minimal subarachnoid hemorrhage. Otherwise, there is mild prominence of the ventricles and sulci consistent with age-appropriate volume loss. Mildly enlarged partially empty sella is noted. There is no midline shift or significant mass effect. A chronic lacunar infarct is seen in the left posterior putamen. Minimal T2 signal abnormality is seen in the supratentorial white matter. The brainstem and cerebellum are normal. Flow voids are preserved in the dominant intracranial vessels. EXTRACRANIAL SOFT TISSUES: Orbits are unremarkable. Sinuses and mastoids are clear. BONES: Marrow signal is preserved. IMPRESSION: 1. No evidence of acute/subacute infarction. 2. There is a mixed signal probably subacute subdural hematoma over the left frontoparietal convexity, similar to CT from 12/21/2024. Small amount of subarachnoid hemorrhage is also seen in adjacent sulci. 3. Trace right frontal and parietal subdural is also seen. 4. Minimal T2 signal abnormality in the supratentorial white matter, nonspecific though likely related to minor chronic microvascular ischemic change. A chronic left putaminal lacunar infarct is also seen. Given concern for fairly subacute bleed, he does not recommend thrombectomy. unclear if she can tolerate AC. He is happy to place IVC filter. He is also recommending venous duplex to b/l LEs to assess for DVTs. this has been ordered > call out to neurologist Dr. Patel to discuss bleed > she is hemodynamically stable at this time. NIH 0. 1330 -- repeat trop 6.3. I spoke with neurosurgery PA Asim Duncan from [facility]. He is recommending CT head/brain. if no interval change in subdural, ok to start anticoagulation (preferably heparin) with repeat head CT in 24 hours, unless there is an acute change in mentation. no specific BP goal. he recommends speaking with the medical team at [facility] for admission/ further management. call out to medicine. > received critical result of venous duplex -- nonconclusive thrombus involving the right peroneal vein and also the left posterior tibialis vein. 140 -- Spoke with hospitalist MICHELLE Dinero regarding patient transfer. she has accepted direct admission to medicine with accepting physician Dr. Freed. > neurosurgery PA called back. he informed me that patient was discharged 1 week ago with neuroendovascular follow up/ referral. he states that he retracts his recommendations regarding anticoagulation and would like me to refer to neuroendovascular for specific recommendations regarding AC initiation. > I spoke with Dr. Garland with neuroendovascular at [facility]. He also tells me he cannot make a specific recommendation regarding AC initiation as they only specialize in MMA embolization. they are open to consulting on patient on arrival to [facility]. > despite conversations with multiple specialists without a clear answer/ recommendation on AC initiation, I do not feel comfortable initiating AC at this time. > she is pending transfer to [facility]. she is hemodynamically stable at this time 1835 -- spoke with [facility] hospitalist AURELIA Webb regarding management of patient while holding in our ED. given severity of patient's situation, I endorsed concern as patient's b/l PE are not currently being treated while waiting for placement on their medical floor. discussed repeat ct head showing 6mm SDH. Tracey will discuss with her attending with plan for call back. sign out given to my attending dr. fischer pending call back/ disposition. Reevaluation(s) Reevaluation #1: call back from hospitalist Tracey 722pm aware of repeat head CT SDH fluid 6mm JUANJOSE 01/03/25 724pm at this point she needs a number of medical services and decisions on therapy/ consults prior to accepting admission inpatient will attempt transfer ED to ED. call to ED 730pm accepted to [facility] ED Dr. Zach Pena Medications Administered Discontinued Medications Generic Name Dose Route Start Last Admin Trade Name Serg PRN Reason Stop Dose Admin Acetaminophen 1,000 mg in 100 mls @ 400 mls/hr 01/03/25 15:02 01/03/25 15:57 Ofirmev IV 01/03/25 15:16 Infused ONCE ONE Infusion Iohexol 100 ml 01/03/25 10:48 01/03/25 10:49 Iohexol 350 Mg/Ml 100 Ml Infus..Btl IV 01/03/25 10:49 65 ml ONCE ONE Administration Medical Decision Making Medical Decision Making MDM Narrative: 69-year-old female with past medical history significant for HTN, HLD, CAD, OK with 2 stents, depression, anxiety presents to the ED today with her for evaluation of right-sided chest pain that began last night while lying in bed. Exam without evidence of volume overload. EKG without signs of active ischemia. HEART score: 5. Given the timing of pain to ED presentation, plan to send delta troponin to evaluate for NSTEMI. Differential diagnosis also includes anemia, electrolyte abnormality, costochondritis, msk pain, pneumonia, pleurisy, PE Presentation not consistent with pneumothorax, thoracic aortic dissection, cardiac effusion or tamponade, myocarditis, pericarditis. Plan: labs, troponin, EKG, pain control, reassessment Differential Diagnosis Differential Diagnoses: The differential diagnosis associated with the presentation includes as above. Admission/Observation Consideration of admission/observation: Escalation of care including admission/observation considered patient transfered to [facility] medical team, accepting physician dr. ely Consult Healthcare Provider Management of the patient was discussed with: [employer] [facility] neurosurgery - luiz duncan [facility] neuroendovascular - dr. garland [facility] [place] vascular - dr. novak [facility] [place] neuro - dr. patel Lab Data [facility] Lab Attestation statement: I reviewed the patient's lab results. as above. 01/03/25 09:01 01/03/25 09:01 Labs: Lab Results 01/03/25 01/03/25 Range/Units 09:01 12:01 WBC 12.3 H (4.8-10.8) X10*3/uL RBC 4.29 (4.20-5.50) X10*6/uL Hgb 12.8 (12.0-16.0) g/dl Hct 37.1 (37.0-47.0) % MCV 86.5 (80.0-98.0) fL MCH 29.8 (27.0-33.0) pg MCHC 34.5 (31.0-35.0) g/dl RDW 13.2 (11.0-16.0) % Plt Count 177 (160-400) X10*3/uL MPV 8.8 L (9.4-12.3) fL Immature Gran % (Auto) 0.4 (0.0-0.4) % Neut % (Auto) 80.4 H (45-73) % Lymph % (Auto) 13.1 L (20-40) % Sioux % (Auto) 4.8 (2-11) % Eos % (Auto) 1.1 (0-4) % Baso % (Auto) 0.2 (0-2) % Lymph # (Auto) 1.6 (1.2-4.9) X10*3/uL Sioux # (Auto) 0.6 (0.1-1.2) X10*3/uL Eos # (Auto) 0.1 (0.0-0.4) X10*3/uL Baso # (Auto) 0.0 (0.0-0.2) X10*3/uL Abs Immat Gran (auto) 0.05 H (0.00-0.03) X10*3/uL Absolute Neuts (auto) 9.9 H (2.0-8.3) x10*3/uL Absolute Nucleated RBC 0.000 (0.0-0.012) X10*3/uL Nucleated RBC % (auto) 0.0 (0.0-0.2) /100WBC PT 13.5 H (10.9-12.4) SEC INR 1.2 H (0.9-1.1) aPTT Heparin Protocol 29.4 L (53-77.9) SEC D-Dimer High Sensitivty 2631 NG/ML Sodium 140 (135-145) mmol/L Potassium 4.0 (3.3-5.1) mmol/L Chloride 112 H (96-108) mmol/L Carbon Dioxide 23 (22-29) mmol/L Anion Gap 9 L (12-20) BUN 13 (9-16) mg/dL Creatinine 0.88 (0.5-1.4) mg/dL Estim Creat Clear Calc 61.5 Estimated GFR > 60 Random Glucose 111 (60-115) mg/dL Calcium 8.7 D (8.4-10.2) mg/dL Total Bilirubin 1.1 H (0.0-1.0) mg/dL AST 24 (5-31) U/L ALT 11 (0-31) U/L Alkaline Phosphatase 30 L (39-117) U/L Troponin I High Sens 7.0 6.3 (<3.5-17.0) ng/L Total Protein 6.1 L (6.5-8.0) g/dL Albumin 3.2 L (3.5-5.0) g/dL Independent Interpretation I performed an independent interpretation of an: EKG, Ultrasound and CT Scan Interpretation: CT angio chest showing b/l PE EKG showing normal sinus rhythm, rate of 66 beats per minute, QT 420, QTC 440, no acute ischemic changes or ST elevations Venous duplex w/ bilateral clots Radiology Impression Discussion of test interpretation with radiology: I have reviewed the radiologist's reading. Radiologist Impression: Procedure(s): US venous duplex LE BI Accession Number(s): [id number] cc: Gela Patel MD; Ashley Sadny~ EXAMINATION: US TRIPLEX LOWER EXTREMITY, BILATERAL CLINICAL INFORMATION: Pulmonary emboli. COMPARISON: None available. TECHNIQUE: Color-flow triplex imaging with spectral analysis and compression Doppler were performed on the bilateral lower extremities. FINDINGS: Right lower extremity: There is partial compressibility within the interrogated the peroneal veins. There is normal phasic flow and compressibility from the right common femoral vein to the right popliteal vein. Left lower extremity: There is partial compressibility from the left posterior tibialis vein. There is normal phasic flow and compressibility from the left common femoral vein to the left popliteal vein. There is no Harris's cyst. US/US venous duplex LE BI IMPRESSION: Nonocclusive thrombus involving the right peroneal vein and the left posterior tibialis vein. Positive exam. Procedure(s): CT angio chest PE protocol Accession Number(s): [id number] cc: Gela Patel MD; Ashley Sandy~ Report Number: [id number]: Total DLP = 365.00 mGy-cm EXAMINATION: CT ANGIOGRAM CHEST CLINICAL INFORMATION: Elevated d-dimer, right-sided pleuritic chest pain. COMPARISON: None available. TECHNIQUE: Multiple axial images were obtained through the chest after the administration of 65 mL of Omnipaque 350 intravenous contrast. Extensive vascular post-processing including two-dimensional and three-dimensional reformatted images were created and reviewed on an independent workstation. This CT examination was performed using dose optimization techniques as appropriate, variously including the following: *Automated exposure control *Adjustment of mA and/or kV according to patient size (this includes techniques or standardized protocols for targeted exams where dose is matched to indication/reason for exam; i.e. extremities or head) *Use of iterative reconstruction technique FINDINGS: VASCULAR: There are bilateral pulmonary emboli with a moderate clot burden present. There is no right heart strain pattern, and there is no reflux of contrast into the hepatic veins. The main pulmonary artery is mildly prominent in caliber measuring up to 3.2 cm. The aorta is normal in caliber, course, and branching pattern. There is minimal calcific atheromatous plaque. There is no evidence of acute aortic syndrome or aneurysm. There is mild cardiac enlargement. There is no pericardial effusion. LUNGS: There are tiny bilateral pleural effusions. There is associated mild passive atelectasis of both lower lobes. There is more significant groundglass opacity segmentally in the right lower lobe, nonspecific. There are hypoventilatory changes in both lungs, with expiratory appearance, and inward bowing of the posterior membranous trachea. There is no pneumothorax. No suspicious pulmonary nodule within confines of expiratory appearance. MEDIASTINUM: Normal thyroid. No lymphadenopathy or mass. Somewhat patulous appearing esophagus, with a small to moderate-sized type I hiatus hernia. AXILLA/CHEST WALL: Normal. UPPER ABDOMEN: There is a cholecystectomy. Remainder of the imaged upper abdominal contents appear normal. OSSEOUS STRUCTURES: No suspicious lytic or blastic bone lesions. There are moderate degenerative changes throughout the spine. CT/CT angio chest PE protocol IMPRESSION: 1. Bilateral pulmonary emboli, moderate clot burden. No right heart strain pattern, and no reflux of contrast into the hepatic veins. Study does not meet criteria for submassive PE. 2. No evidence of acute aortic syndrome or aneurysm. 3. Expiratory appearance to the lungs, limiting evaluation of parenchymal findings. There is passive atelectasis in the left lower lobe. There is patchy groundglass opacity and subsegmental consolidation in the right base, nonspecific. Differential includes atelectasis, pulmonary infarct, and pneumonia. 4. There are tiny pleural effusions bilaterally. 5. There is mild cardiac enlargement. 6. Additional ancillary findings as discussed above. Findings were discussed with Ashley MARTINEZ of the [facility] via phone call at 11:00 AM, 01/03/2025. Procedure(s): US venous duplex LE BI Accession Number(s): [id number] cc: Gela Patel MD; Ashley Sandy~ EXAMINATION: US TRIPLEX LOWER EXTREMITY, BILATERAL CLINICAL INFORMATION: Pulmonary emboli. COMPARISON: None available. TECHNIQUE: Color-flow triplex imaging with spectral analysis and compression Doppler were performed on the bilateral lower extremities. FINDINGS: Right lower extremity: There is partial compressibility within the interrogated the peroneal veins. There is normal phasic flow and compressibility from the right common femoral vein to the right popliteal vein. Left lower extremity: There is partial compressibility from the left posterior tibialis vein. There is normal phasic flow and compressibility from the left common femoral vein to the left popliteal vein. There is no Harris's cyst. US/US venous duplex LE BI IMPRESSION: Nonocclusive thrombus involving the right peroneal vein and the left posterior tibialis vein. Positive exam. Independent Historian Clinical information obtained from an independent historian. History obtained from or confirmed by: Spouse () External Record Review External record reviewed: Inpatient record Chronic Conditions Patient?s care impacted by: Other (CAD) Social Determinants Patient?s care significantly limited by Social Determinants of Health including: Other Social Determinant of Health Critical Care Time Critical Care Time Critical Care Time: Yes Total Critical Care Time: 60 Attestation: Critical care time in the amount of 60 minutes has been provided to the patient in terms of direct patient care, frequent reevaluation, consultation with Neurosurgery, neuro endovascular, vascular, review and interpretation of medical data and results, and management of potentially life-threatening conditions. This is all outside of any medical procedures. Discharge Plan Discharge Clinical Impression: Bilateral pulmonary embolism, Deep vein thrombosis of bilateral lower extremities, Subdural hematoma Patient Disposition: [facility] Transfer Details: [facility] Prescriptions: No Action carvedilol 3.125 mg tablet 3.125 mg PO BID 90 Days Qty: 180 0RF Rx Instructions: must administer with a meal/food chlorthalidone 25 mg tablet 25 mg PO DAILY Qty: 90 0RF losartan 50 mg tablet 50 mg PO DAILY Qty: 90 0RF nifedipine 30 mg tablet extended release 30 mg PO DAILY Qty: 90 0RF ezetimibe 10 mg tablet 10 mg PO DAILY Qty: 90 0RF aspirin [Ecotrin Low Strength] 81 mg tablet,delayed release (DR/EC) 81 mg PO DAILY 90 Days Qty: 90 3RF atorvastatin 80 mg tablet 80 mg PO DAILY 90 Days Qty: 90 0RF citalopram 40 mg tablet 40 mg PO DAILY Qty: 90 0RF potassium chloride 10 mEq tablet extended release 10 meq PO DAILY cholecalciferol (vitamin D3) 25 mcg (1,000 unit) capsule 25 mcg PO DAILY 90 Days Qty: 90 1RF Interventions: Acute Care Transfer Worksheet (ED) Last Done: 01/03/25 21:06 Discharge Date/Time: 01/03/25 21:06 Print Language: Swedish
[2025-01-03] MEDS: iohexoL 350 MG/ML 100 ML INFUS..BTL IV (10:49)
[2025-01-03 12:05] VITALS: BP 141/64; PULSE 60; RESP 19; O2SAT 97
[2025-01-03 12:14] LABS: INTERNATIONAL NORM RATIO 1.2 (0.9-1.1); Prothrombin Time 13.5 SEC (10.9-12.4)
[2025-01-03 12:16] LABS: PTT Heparin Drip 29.4 SEC (53-77.9)
[2025-01-03 12:29] LABS: Troponin-I High Sensitivity 6.3 ng/L (<3.5-17.0)
--- NOTE | 2025-01-03 14:00 | PC.NURSE ---
Check in with MD/community recreation coordinator about [facility] bed assignment/transfer. no updates on bed assignment or orders. will continue to monitor closely.
[2025-01-03] MEDS: Acetaminophen 1,000 MG/100 ML PIGGYBACK 400 MG IV (15:36)
[2025-01-03 17:15] VITALS: BP 119/53; PULSE 54; RESP 22; TEMP 36.6; O2SAT 96
--- NOTE | 2025-01-03 17:35 | PC.NURSE ---
MICHELLE phillips updated that [facility] hospitalist will be speaking with attending to discuss interventions for us to start while awaiting bed placement at [facility]. Patient accepted by Dr. ely and awaiting transfer.
--- NOTE | 2025-01-03 18:58 | PC.NURSE ---
MD amado mann'ed small meal for patient. Patient eating water, lamonte handy.
[2025-01-03 19:49] VITALS: BP 114/53; PULSE 59; RESP 20; TEMP 36.6; O2SAT 96
--- NOTE | 2025-01-03 20:43 | PC.NURSE ---
report given to RN at [facility]
[2025-01-03 21:06] VITALS: BP 114/53; PULSE 59; RESP 20; TEMP 36.6; O2SAT 96
== END 2025-01-03 21:06 | disposition short-term general hospital (02) ==
PROVIDERS: Physician Assistant Medical; Emergency Provider Emergency Medicine; PCP Internal Medicine
DX: I26.99 Other pulmonary embolism without acute cor pulmonale (principal); I82.403 Acute embolism and thrombosis of unspecified deep veins of lower extremity, bilateral; S06.5XAA Traumatic subdural hemorrhage with loss of consciousness status unknown, initial encounter; W19.XXXA Unspecified fall, initial encounter; Y93.9 Activity, unspecified; Y92.9 Unspecified place or not applicable; Y99.9 Unspecified external cause status; I10 Essential (primary) hypertension; E78.5 Hyperlipidemia, unspecified; I25.2 Old myocardial infarction; H81.09 Meniere's disease, unspecified ear; F17.210 Nicotine dependence, cigarettes, uncomplicated; Z79.82 Long term (current) use of aspirin; Z79.02 Long term (current) use of antithrombotics/antiplatelets; Z79.899 Other long term (current) drug therapy
CPT/HCPCS: 36415; 70450; 71275; 80053; 84484; 85025; 85379; 85610; 85730; 93005; 93970; 96365; 99285; J0131; Q9967

== ENCOUNTER → 2025-01-03 08:51 | Outpatient (BNV) | payer MEDICARE, SELFPAY | PROVIDERS: Emergency Provider Emergency Medicine; PCP Internal Medicine; Visit Provider Internal Medicine | DX: R94.31 Abnormal electrocardiogram [ECG] [EKG] (principal); R07.9 Chest pain, unspecified | CPT/HCPCS: 93010 ==

== ENCOUNTER → 2025-01-03 10:41 | Outpatient (BNV) | payer MEDICARE, SELFPAY | PROVIDERS: Emergency Provider Emergency Medicine; PCP Internal Medicine; Visit Provider Radiology Diagnostic Radiology | DX: I26.99 Other pulmonary embolism without acute cor pulmonale (principal); R91.8 Other nonspecific abnormal finding of lung field; S06.5X0A Traumatic subdural hemorrhage without loss of consciousness, initial encounter; I82.451 Acute embolism and thrombosis of right peroneal vein; I82.442 Acute embolism and thrombosis of left tibial vein | CPT/HCPCS: 71275; 93970 ==

== ENCOUNTER 2025-01-20 12:57 | Outpatient (AMB) | payer MEDICARE, SELFPAY ==
--- NOTE | 2025-01-20 13:07 | MHC.PC.OV ---
Vital Signs 01/20/25 13:14 Height 5 ft 3 in Weight 187 lb 8 oz BMI 33.2 BP 134/82 Blood Pressure Location Rt brachial Position Sitting Pulse 78 Pulse Source Pulse Oximeter Pulse Oximetry (%) 97 Oxygen Delivery Method Room Air Intake Visit Reasons: 4 months follow up,resched Allergies oxycodone [OXYCODONE] Adverse Reaction (Intermediate, Verified 01/03/25 08:28) SEVERE VOMITING Medication List - Last Reconciled 01/20/25 by Gela Patel MD aspirin (Ecotrin Low Strength) 81 mg PO DAILY 90 days atorvastatin 80 mg PO DAILY 90 days chlorthalidone 25 mg PO DAILY cholecalciferol (vitamin D3) 25 mcg PO DAILY 90 days citalopram 40 mg PO DAILY ezetimibe 10 mg PO DAILY losartan 50 mg PO DAILY nifedipine ER 30 mg PO DAILY potassium chloride ER 10 mEq PO DAILY Tobacco use date assessed: 10/18/24 Dental Screening Dental Screen Date: 10/18/24 HPI 4 months follow up,resched HPI Details Patient is 69-year-old female presented to [facility] on of this month with a chief complaint of right-sided chest pain She has a history of hypertension, lipid disorder, coronary artery disease, myocardial infarction with 2 stents, depression, anxiety Prior to that patient fell in October and had a small frontoparietal subdural hematoma, which was under observation Initially she had neurological symptoms but they resolved completely After the fall patient has been taking it easy and been sedentary She suddenly started having difficulty breathing so ended up in the hospital Difficulty breathing was associated with chest pain pleuritic In [facility], Emergency workup revealed Leukocytosis 12.3 with left shift, no anemia no acute electrolyte abnormalities No SARY Liver functions at baseline Troponin 7, EKG showing normal sinus rhythm with a rate of 66 beats per minute nonspecific T-wave abnormality in inferior leads D-dimer came back [place] 2631 CT angio was done which showed bilateral pulmonary emboli with moderate clot burden, no reflux of contrast into hepatic veins, no evidence of aortic aneurysm Tiny bilateral pleural effusions were seen with mild cardiac enlargement. Patient was transferred to [facility] Patient was also found to have nonocclusive bilateral DVTs She remained hemodynamically stable Neurology was consulted and there was no absolute contraindication for anticoagulation Patient was started on heparin drip with neuro monitoring And then transition to oral apixaban 5 mg b.i.d. She is taking that currently came in today for follow-up appointment She is back to her baseline there is no neurological deficit there is no leg pains and there is no more chest pain Patient is able to take deep breaths Apixaban script filled She will be seeing hematology for further management. Blood pressure is stable patient is taking her blood pressure medications Continue atorvastatin for lipid control Citalopram for depression and anxiety Keppra to prevent seizures Follow-up 4 months Medications - Atorvastatin for lipid management - Chlorthalidone for hypertension - Citalopram for depression - Zetia for cholesterol management - Losartan for hypertension - Nifedipine for hypertension - Eliquis (Apixaban) for anticoagulation management following pulmonary embolism Problem List - Hypertension - Lipid disorder - Coronary artery disease with myocardial infarction and two stents - Depression - Anxiety - Bilateral pulmonary embolism - Right-sided chest pain - Small brain bleed (left frontoparietal subdural fluid collection) Diagnostic results - Bilateral pulmonary embolism confirmed via CT scan in hospital setting. - CT of the head revealed a left frontoparietal subdural fluid collection measuring up to 6 mm without indications requiring drilling procedure. Patient Instructions - Continue taking prescribed apixaban 5 mg b.i.d. for anticoagulation. - Keep track of the medication supply, ensuring adequate medication until the next appointment with a paleology professor. - Increase mobility to prevent clots, maintain regular walking routine with her dog. - Follow up with scheduled appointments for reevaluation. - continue other medications Review of Systems General: No fever no chills neurological: No headaches no dizziness ear nose throat: No sore throat no hearing difficulty no ear pain cardiovascular: No syncope, no chest pain, no palpitations gastrointestinal: No nausea vomiting or diarrhea endocrine: No polyuria polydipsia no heat intolerance genitourinary: No dysuria skin: No new complaints Physical Exam general: No acute distress HEENT: No acute findings neck: Supple respiratory system: Able to talk in full sentences, no audible wheeze no stridor cardiovascular: S1-S2 RRR gastrointestinal: No pain extremities: No new findings SPICE MILLER: Alert awake oriented x3 motor sensory intact skin: Normal turgor [facility] Medical History Skin lesion HTN (hypertension) CAD (coronary artery disease) On anticoagulant therapy History of Meniere's syndrome Anxiety Depression Elevated cholesterol Myocardial infarction Surgical History History of colonoscopy Stented coronary artery Hx of cholecystectomy History of superficial parotidectomy History of section Family History Father Mesothelioma Kidney stones Mother HTN (hypertension) Diverticulitis Brother HTN (hypertension) Daughter No problems noted. Maternal Grandfather No problems noted. Maternal Grandmother No problems noted. Paternal Grandfather No problems noted. Paternal Grandmother No problems noted. Other Mental health disorder Social History Housing: House Alcohol intake: current Alcohol intake frequency: holidays/special occasions only Patient Tobacco Use Status: Current everyday Tobacco user Tobacco use type: Cigarette Cigarettes Per Day: 2 Years Smoked: 10 e-Cigarette/Vaping Use: Never Used Second Hand Smoke Exposure: No service: No Current occupational status: retired Cognitive needs: No Hearing needs: No Vision needs: No Female Reproductive History Menstrual Age of Menarche: 10 Questionnaire Thrive Questionnaire Date Thrive assessed: 01/20/25 I am a: Patient What is your living situation today?: I have a steady place to live Within the past 12 months, did the food you bought not last and you didn't have the money to get more?: Never true Within the past 12 months, did you worry whether your food would run out before you got money to buy more?: Never true Do you have trouble paying for medicines?: No Do you have trouble getting transportation to medical appointments?: No Do you have trouble paying your heating and electricity bill?: No Do you have trouble taking care of your child, family member or friend?: No Do you have trouble with day-to-day activities such as bathing, preparing meals, shopping, managing finances, etc.?: No Are you currently unemployed and looking for a job?: No Are you interested in more education?: No Please select the resources that you would like help with: None Currently or been in a relationship where the following occur: No concerns reported THRIVE Score: 0 AUDIT C Alcohol Use Questionnaire (AUDIT-C) 1. How often do you have a drink containing alcohol?: Monthly or less 2. How many drinks containing alcohol do you have on a typical day when you are drinking?: 1 or 2 3. How often do you have six or more drinks on one occasion?: Never Total Score: 1 Score Reviewed/Action Taken: Yes IRVIN-7 AMB Questionnaire IRVIN-7 Date IRVIN - 7 assessed: 10/18/24 Source: Developed by Drs. Abad Manuel, Chetna Boudreaux, Dominic Pena and colleagues, with an educational carol from [employer]. Physical exam (Primary Care) Vital Signs: Last Vital Signs Pulse 78 01/20/25 13:14 BP 134/82 01/20/25 13:14 Pulse Ox 97 01/20/25 13:14 Oxygen Delivery Method Room Air 01/20/25 13:14 BMI result Body Mass Index 33.2 Tobacco/Smoking Status: Tobacco use Status Tobacco use date assessed 10/18/24 01/20/25 13:07 Patient Tobacco Use Status Current everyday Tobacco 01/20/25 13:07 Tobacco use type Cigarette 01/20/25 13:07 e-Cigarette/Vaping Use Never Used 01/20/25 13:07 Thrive Assessment: Date of Thrive Assessment Date Thrive assessed 01/20/25 01/20/25 13:26 Currently or been in a relationship where the following occur: No concerns reported Coding Level of Care Code Est Pt Level 5 (47160) Diagnoses Hospital discharge follow-up Z09 Bilateral pulmonary embolism I26.99 Primary hypertension I10 Hypertension type: primary hypertension Lipid disorder E78.9 Pre-diabetes R73.03 Recurrent major depressive disorder, in full remission F33.42 Active/Remission status: in full remission Class 2 severe obesity due to excess calories with serious comorbidity and body mass index (BMI) of 35.0 to 35.9 in adult E66.01; Z68.35 Body mass index: BMI 35.0-35.9 Obesity classification: adult class 2 (BMI 35 - 39.9) Serious obesity comorbidity presence: with serious comorbidity Time Spent (min) 41 Comment Reviewing chart/hospital notes/zaja-[id number]-wvbp/coordination of care Assessment & Plan Assessment & Plan (1) Hospital discharge follow-up: Code(s): Z09 - Encounter for follow-up examination after completed treatment for conditions other than malignant neoplasm Category: Medical (2) Bilateral pulmonary embolism: Code(s): I26.99 - Other pulmonary embolism without acute cor pulmonale Category: Medical (3) HTN (hypertension): Code(s): I10 - Essential (primary) hypertension Category: Medical Qualifiers: Hypertension type: primary hypertension Qualified Code(s): I10 - Essential (primary) hypertension (4) Lipid disorder: Code(s): E78.9 - Disorder of lipoprotein metabolism, unspecified Category: Medical (5) Pre-diabetes: Code(s): R73.03 - Prediabetes Category: Medical (6) Major depression, recurrent: Code(s): F33.9 - Major depressive disorder, recurrent, unspecified Category: Medical Qualifiers: Active/Remission status: in full remission Qualified Code(s): F33.42 - Major depressive disorder, recurrent, in full remission (7) Obesity due to excess calories: Code(s): E66.09 - Other obesity due to excess calories Category: Medical Qualifiers: Body mass index: BMI 35.0-35.9 Obesity classification: adult class 2 (BMI 35 - 39.9) Serious obesity comorbidity presence: with serious comorbidity Qualified Code(s): E66.01 - Morbid (severe) obesity due to excess calories; Z68.35 - Body mass index [BMI] 35.0-35.9, adult Plan Date of admission to [facility] 01/04/2025 date of discharge 01/06/2025 Patient is 69-year-old female presented to [facility] on of this month with a chief complaint of right-sided chest pain She has a history of hypertension, lipid disorder, coronary artery disease, myocardial infarction with 2 stents, depression, anxiety Prior to that patient fell in October and had a small frontoparietal subdural hematoma, which was under observation Initially she had neurological symptoms but they resolved completely After the fall patient has been taking it easy and been sedentary She suddenly started having difficulty breathing so ended up in the hospital Difficulty breathing was associated with chest pain pleuritic In [facility], Emergency workup revealed Leukocytosis 12.3 with left shift, no anemia no acute electrolyte abnormalities No SARY Liver functions at baseline Troponin 7, EKG showing normal sinus rhythm with a rate of 66 beats per minute nonspecific T-wave abnormality in inferior leads D-dimer came back [place] 2631 CT angio was done which showed bilateral pulmonary emboli with moderate clot burden, no reflux of contrast into hepatic veins, no evidence of aortic aneurysm Tiny bilateral pleural effusions were seen with mild cardiac enlargement. Patient was transferred to [facility] Patient was also found to have nonocclusive bilateral DVTs She remained hemodynamically stable Neurology was consulted and there was no absolute contraindication for anticoagulation Patient was started on heparin drip with neuro monitoring And then transition to oral apixaban 5 mg b.i.d. She is taking that currently came in today for follow-up appointment She is back to her baseline there is no neurological deficit there is no leg pains and there is no more chest pain Patient is able to take deep breaths Apixaban script filled She will be seeing hematology for further management. Blood pressure is stable patient is taking her blood pressure medications Continue atorvastatin for lipid control Citalopram for depression and anxiety Keppra to prevent seizures Follow-up 4 months Medications - Atorvastatin for lipid management - Chlorthalidone for hypertension - Citalopram for depression - Zetia for cholesterol management - Losartan for hypertension - Nifedipine for hypertension - Eliquis (Apixaban) for anticoagulation management following pulmonary embolism Problem List - Hypertension - Lipid disorder - Coronary artery disease with myocardial infarction and two stents - Depression - Anxiety - Bilateral pulmonary embolism - Right-sided chest pain - Small brain bleed (left frontoparietal subdural fluid collection) Diagnostic results - Bilateral pulmonary embolism confirmed via CT scan in hospital setting. - CT of the head revealed a left frontoparietal subdural fluid collection measuring up to 6 mm without indications requiring drilling procedure. Patient Instructions - Continue taking prescribed apixaban 5 mg b.i.d. for anticoagulation. - Keep track of the medication supply, ensuring adequate medication until the next appointment with a paleology professor. - Increase mobility to prevent clots, maintain regular walking routine with her dog. - Follow up with scheduled appointments for reevaluation. - continue other medications Orders: Referrals Hematology & Oncology Referral I26.99 - Other pulmonary embolism without acute cor pulmonale Medications: New apixaban 5 mg PO BID 180 tabs 0RF
[2025-01-20 13:14] VITALS: BP 134/82; PULSE 78; O2SAT 97; BMI 33.2
== END 2025-01-20 13:32 | disposition home or self-care (01) ==
LOC: HO.HMCC 12:58
PROVIDERS: PCP Internal Medicine; Visit Provider Internal Medicine
DX: I26.99 Other pulmonary embolism without acute cor pulmonale (principal); E66.01 Morbid (severe) obesity due to excess calories; Z68.35 Body mass index [BMI] 35.0-35.9, adult; F33.42 Major depressive disorder, recurrent, in full remission; Z09 Encounter for follow-up examination after completed treatment for conditions other than malignant neoplasm; I10 Essential (primary) hypertension; E78.9 Disorder of lipoprotein metabolism, unspecified; R73.03 Prediabetes

== ENCOUNTER → 2025-01-20 12:57 | Outpatient (BNVA) | payer MEDICARE, SELFPAY | PROVIDERS: PCP Internal Medicine; Visit Provider Internal Medicine | DX: Z09 Encounter for follow-up examination after completed treatment for conditions other than malignant neoplasm (principal); I26.99 Other pulmonary embolism without acute cor pulmonale; I10 Essential (primary) hypertension; E78.9 Disorder of lipoprotein metabolism, unspecified; R73.03 Prediabetes; F33.42 Major depressive disorder, recurrent, in full remission; E66.01 Morbid (severe) obesity due to excess calories; Z68.35 Body mass index [BMI] 35.0-35.9, adult; Z71.3 Dietary counseling and surveillance | CPT/HCPCS: 99212 ==

== ENCOUNTER → 2025-02-21 09:26 | Outpatient (BNV) | payer MEDICARE, SELFPAY | PROVIDERS: PCP Internal Medicine; Referring Provider Internal Medicine; Visit Provider Internal Medicine Medical Oncology | DX: I26.99 Other pulmonary embolism without acute cor pulmonale (principal) | CPT/HCPCS: 99204 ==

== ENCOUNTER 2025-03-21 11:53 | Outpatient (AMB) | payer MEDICARE, SELFPAY ==
[2025-03-21 12:31] VITALS: BP 110/72; PULSE 58; BMI 33.2
--- NOTE | 2025-03-21 12:31 | A.OFFVIS_ITS ---
Vital Signs 03/21/25 12:31 Height 5 ft 3 in Weight 187 lb 6.287 oz BMI 33.2 BP 110/72 Blood Pressure Location Lt brachial Position Sitting Pulse 58 Intake Visit Reasons: 1 yr follow up Intake Note: 1 year follow-up with ekg feeling good was in [facility] 3x non cardiac in Oct (was started a xarelto for blood clots) Food Porter Required: No Allergies oxycodone [OXYCODONE] Adverse Reaction (Intermediate, Verified 02/21/25 10:13) SEVERE VOMITING Medication List - Last Reconciled 03/21/25 by Umesh Bird MD atorvastatin 80 mg PO DAILY 90 days citalopram 40 mg PO DAILY ezetimibe 10 mg PO DAILY levetiracetam 500 mg PO BID losartan 50 mg PO DAILY nifedipine ER 30 mg PO DAILY HPI Comments Details: Concepción comes for follow-up. Since we last saw her she had subdural hematoma due to a fall and head injury. Subsequently she was says that she was laid up. In January she came to the hospital with right-sided chest pain was noted to have bilateral pulmonary embolism with moderate clot burden as well as bilateral DVT. She was subsequently referred to [facility] because of her recent intracranial hemorrhage with subdural hematoma. She was subsequently started on heparin and then subsequently switch to Eliquis. However she could not afford Eliquis and stopped it and was subsequently given Xarelto which she again to for a month and says currently she is out of any anticoagulant due to cost issues. She has not had any actual cardiac complaints. Denies any exertional chest pain or shortness of breath. Denies any prolonged palpitation irregular heartbeat. [facility], LATER [facility] Medical History Skin lesion HTN (hypertension) CAD (coronary artery disease) On anticoagulant therapy History of Meniere's syndrome Anxiety Depression Elevated cholesterol Myocardial infarction Surgical History History of colonoscopy Stented coronary artery Hx of cholecystectomy History of superficial parotidectomy History of section Family History Father Mesothelioma Kidney stones Mother HTN (hypertension) Diverticulitis Brother HTN (hypertension) Daughter No problems noted. Maternal Grandfather No problems noted. Maternal Grandmother No problems noted. Paternal Grandfather No problems noted. Paternal Grandmother No problems noted. Other Mental health disorder Social History Household Members: Spouse Housing: House Are you a primary elderly caregiver to a significant other at home: Yes Do you presently have visiting nurse or other home services: No Alcohol intake: current Alcohol intake frequency: holidays/special occasions only Patient Tobacco Use Status: Former Tobacco user Tobacco use type: Cigarette Years Smoked: 10 e-Cigarette/Vaping Use: Never Used Second Hand Smoke Exposure: No service: No Current occupational status: retired Cognitive needs: No Hearing needs: No Vision needs: No Female Reproductive History Menstrual Age of Menarche: 10 Review of Systems Const Denies chills, Denies fatigue, Denies fever(s), Denies frequent falls, Denies weakness, Denies weight gain and Denies weight loss ENT Denies dizziness Card Denies chest pain, Denies leg edema, Denies lightheadedness, Denies palpitations, Denies dyspnea, Denies dyspnea on exertion, Denies orthopnea and Denies other (loss of consciousness) Resp Denies cough, Denies dyspnea and Denies dyspnea on exertion GI Denies hematochezia and Denies change in stool character Musc Denies abnormal gait, Denies muscle weakness, Denies numbness, Denies radiating pain into limb and Denies tingling Neuro Denies abnormal gait, Denies dizziness, Denies frequent falls, Denies numbness, Denies tingling and Denies weakness Endo Denies fatigue and Denies palpitations Physical Exam Vital Signs: Last Vital Signs Pulse 58 03/21/25 12:31 BP 110/72 03/21/25 12:31 BMI result Body Mass Index 33.2 Const General: cooperative, healthy appearing, comfortable and no acute distress Orientation/consciousness: patient oriented x3 Neck Neck: Yes normal visual inspection Resp Effort & Inspection: normal respiratory effort Auscultation: clear to auscultation bilaterally, no rales, no rhonchi and no wheezes Cardio Jugular venous distension: no JVD Rate: regular rate Rhythm: regular rhythm Heart sounds: S1 normal heart sound present, S2 normal heart sound present, no murmurs and no rubs Neuro General: patient oriented x3 Extrem General: Yes normal to inspection, No no pedal edema and No calf tenderness Psych Appearance: grossly normal Mental Status: mental status grossly normal Speech and movement: Normal speech and movement present Office Procedures EKG Details: EKG shows normal sinus rhythm with left anterior fascicular block with poor R- wave progression [id number], Complete Assessment & Plan Assessment & Plan (1) CAD (coronary artery disease): Code(s): I25.10 - Atherosclerotic heart disease of [place] coronary artery without angina pectoris Category: Medical Qualifiers: Coronary Disease-Associated Artery/Lesion type: [place] artery [place] vs. transplanted heart: [place] heart Associated angina: without angina Qualified Code(s): I25.10 - Atherosclerotic heart disease of [place] coronary artery without angina pectoris Plan: Coronary artery disease with remote stenting to branch vessel with no recurrent symptoms of angina. She is supposed to be on oral anticoagulant therapy and therefore would avoid aspirin therapy to reduce bleeding risk. Continue high- intensity statin therapy with ezetimibe therapy with target goal LDL less than 55 mg/dL. Advised lipid panel in near future. Continue aggressive blood pressure control. (2) HTN (hypertension): Code(s): I10 - Essential (primary) hypertension Category: Medical Qualifiers: Hypertension type: primary hypertension Qualified Code(s): I10 - Essential (primary) hypertension Plan: Hypertension which is currently well optimized on current therapy with losartan and nifedipine. Importance of good blood pressure control was discussed. Advised to take medications. Low-salt diet was discussed. Advised to monitor blood pressure at home maintain a log. Goal blood pressure less than 130/84. (3) Pulmonary embolism: Code(s): I26.99 - Other pulmonary embolism without acute cor pulmonale Category: Medical Plan: Recent pulmonary embolism, I do not see any thrombophilic workup. Will discuss with Hematology if this is required. Otherwise patient should be on oral anticoagulant therapy at least for 6 weeks. Importance of compliance with medication and follow up with prescribing providers was discussed and strongly recommended to the patient. She showed understanding. She is going to go down to Hematology today to see if there any alternatives to direct oral anticoagulant therapy and warfarin would be an option. Will follow up otherwise in 1 year's time, sooner p.r.n.. Thank you for allowing me to partake in her care Coding Level of Care Code Est Pt Level 4 (82631) Complex EM visit Add On G2211 Diagnoses Coronary artery disease involving [place] coronary artery of [place] heart without angina pectoris I25.10 Coronary Disease-Associated Artery/Lesion type: [place] artery [place] vs. transplanted heart: [place] heart Associated angina: without angina Primary hypertension I10 Hypertension type: primary hypertension Pulmonary embolism I26.99 CPT Codes EKG - CPT: 46415-[id number], Complete ([id number])
== END 2025-03-21 13:00 | disposition home or self-care (01) ==
LOC: HO.HCS 11:53
PROVIDERS: PCP Internal Medicine; Visit Provider Internal Medicine Cardiovascular Disease
DX: I25.10 Atherosclerotic heart disease of native coronary artery without angina pectoris (principal); I10 Essential (primary) hypertension; I26.99 Other pulmonary embolism without acute cor pulmonale
CPT/HCPCS: 93010; 99214; G2211

== ENCOUNTER → 2025-03-21 11:53 | Outpatient (BNVA) | payer MEDICARE, SELFPAY | PROVIDERS: PCP Internal Medicine; Visit Provider Internal Medicine Cardiovascular Disease | DX: I25.10 Atherosclerotic heart disease of native coronary artery without angina pectoris (principal); I10 Essential (primary) hypertension; I26.99 Other pulmonary embolism without acute cor pulmonale; R00.1 Bradycardia, unspecified; I44.4 Left anterior fascicular block; R94.31 Abnormal electrocardiogram [ECG] [EKG] | CPT/HCPCS: 93005; 99212 ==

== ENCOUNTER 2025-05-30 12:03 | Outpatient (AMB) | payer MEDICARE, SELFPAY ==
[2025-05-30 12:06] VITALS: BP 122/70; PULSE 81; O2SAT 97; BMI 33.5
--- NOTE | 2025-05-30 12:06 | MHC.PC.OV ---
Vital Signs 05/30/25 12:06 Height 5 ft 3 in Weight 189 lb BMI 33.5 BP 122/70 Blood Pressure Location Lt brachial Position Sitting Pulse 81 Pulse Source Pulse Oximeter Pulse Oximetry (%) 97 Intake Visit Reasons: HDF ~ Post hospital discharge FU Allergies oxycodone (OXYCODONE) Adverse Reaction (Intermediate, Verified 05/30/25 12:07) SEVERE VOMITING Medication List - Last Reconciled 05/30/25 by Gela Patel MD atorvastatin 80 mg PO DAILY 90 days citalopram 40 mg PO DAILY ezetimibe 10 mg PO DAILY levetiracetam 500 mg PO BID losartan 50 mg PO DAILY nifedipine ER 30 mg PO DAILY Tobacco use date assessed: 10/18/24 Fall risk assessment: 2 + Falls in past year Last assessed Fall Risk: 05/30/25 Dental Screening Dental Screen Date: 10/18/24 HPI HDF ~ Post hospital discharge FU HPI Details Patient is a 70-year-old female came in today for hospital discharge follow-up dated 05/08/2025 admission , discharge 05/16/2025 Patient was at [facility] she presented with seizure, acute on chronic intracranial subdural hematoma, contusion of tongue She also have history of hypertension, lipid disorder, pulmonary embolism/DVT was on Coumadin which was stopped in hospital Currently taking enoxaparin injections after discharge from the hospital. Patient was found unresponsive by the so was brought in for evaluation In emergency room her blood pressure was 165/88 with pulse rate of 110 temperature afebrile Oxygen saturation 96% on room air Her INR was subtherapeutic CT scan of head was ordered CT scan showed 2 mm increased of subdural hematoma Neurology was consulted - The patient is on Keppra (levetiracetam) 500 mg twice daily for seizure management - The patient reported no further seizures since the adjustment of her medication dose. Anticoagulation Management: - The patient was hospitalized from May 08 to May 16 and had embolization procedure - The procedure involved treating bilateral vascular issues related to a bleeding vessel secondary to a fall, which potentially contributed to the patient's seizures. - The patient indicated that Warfarin (Coumadin) was started prior to her recent seizure. - The patient requires overlap of Lovenox (enoxaparin) injections with Warfarin therapy due to her recent embolization. - The patient expressed concern about the financial cost of Lovenox injections and preferred transitioning to Warfarin, pending INR monitoring. - she need updated INR before going back on Coumadin - The patient has ceased Lovenox as of today due to financial constraints and lack of further prescription. - There is a plan to resume Lovenox pending further instructions from her neurologist, Dr. Oseguera. Medications: - Keppra (levetiracetam) 500 mg twice daily for seizure management. - Lovenox (enoxaparin) injections for anticoagulation bridge therapy (recently ceased due to prescription and financial issues). - Warfarin for anticoagulation therapy, transitioning from Lovenox. - Nifedipine for blood pressure management. - Losartan for hypertension management. - Citalopram for depression. - Atorvastatin for hyperlipidemia. Social History: - The patient resides at home and uses a walker for mobility assistance when needed. - Financial constraints affecting medication adherence, particularly with Lovenox therapy. - No current employment status or details of family status discussed. Problem List - Seizures - Recent embolization procedure - Hematoma brain enlarged from before - Anticoagulation management with Warfarin - Hypertension - Hyperlipidemia - elevated LFTs. Patient Instructions - Continue taking Keppra 500 mg twice daily for seizure management. - Follow up with neurology for anticoagulation management and possible prescription renewal for Lovenox. - Monitor and report any signs of bleeding or further seizures immediately. - Ensure INR levels are checked regularly, starting today, as directed by healthcare providers. - Discuss any financial concerns regarding medication costs with the healthcare team. - Use a cane or walker as needed to prevent falls. - stop atorvastatin due to worsening LFTs - have ultrasound of liver scheduled for July Follow-up September Review of Systems General: No fever no chills neurological: No headaches ear nose throat: No sore throat no hearing difficulty no ear pain cardiovascular: no chest pain, no palpitations gastrointestinal: No nausea vomiting or diarrhea endocrine: No polyuria polydipsia no heat intolerance Physical Exam general: No acute distress HEENT: No acute findings, TEJ , EOMI neck: Supple respiratory system: Able to talk in full sentences, no audible wheeze no stridor cardiovascular: S1-S2 RRR gastrointestinal: No pain extremities: No new findings [employer]: Alert awake oriented x3 , slightly dizzy when standing skin: Normal turgor [facility] Medical History Skin lesion HTN (hypertension) CAD (coronary artery disease) On anticoagulant therapy History of Meniere's syndrome Anxiety Depression Elevated cholesterol Myocardial infarction Surgical History History of colonoscopy Stented coronary artery Hx of cholecystectomy History of superficial parotidectomy History of section Family History Father Mesothelioma Kidney stones Mother HTN (hypertension) Diverticulitis Brother HTN (hypertension) Daughter No problems noted. Maternal Grandfather No problems noted. Maternal Grandmother No problems noted. Paternal Grandfather No problems noted. Paternal Grandmother No problems noted. Other Mental health disorder Social History Household Members: Spouse Housing: House Are you a primary health care analyst to a significant other at home: Yes Do you presently have visiting nurse or other home services: No Alcohol intake: current Alcohol intake frequency: holidays/special occasions only Patient Tobacco Use Status: Former Tobacco user Tobacco use type: Cigarette Years Smoked: 10 e-Cigarette/Vaping Use: Never Used Second Hand Smoke Exposure: No service: No Current occupational status: retired Cognitive needs: No Hearing needs: No Vision needs: No Female Reproductive History Menstrual Age of Menarche: 10 Questionnaire Thrive Questionnaire Date Thrive assessed: 10/11/24 I am a: Patient What is your living situation today?: I have a steady place to live Within the past 12 months, did the food you bought not last and you didn't have the money to get more?: Never true Within the past 12 months, did you worry whether your food would run out before you got money to buy more?: Never true Do you have trouble paying for medicines?: No Do you have trouble getting transportation to medical appointments?: No Do you have trouble paying your heating and electricity bill?: No Do you have trouble taking care of your child, family member or friend?: No Do you have trouble with day-to-day activities such as bathing, preparing meals, shopping, managing finances, etc.?: No Are you currently unemployed and looking for a job?: No Are you interested in more education?: No Please select the resources that you would like help with: None Currently or been in a relationship where the following occur: No concerns reported THRIVE Score: 0 IRVIN-7 AMB Questionnaire IRVIN-7 Date IRVIN - 7 assessed: 10/18/24 Source: Developed by Drs. Abad aMnuel, Chetna Boudreaux, Dominic Pena and colleagues, with an educational carol from [employer]. Physical exam (Primary Care) Vital Signs: Last Vital Signs Pulse 81 05/30/25 12:06 BP 122/70 05/30/25 12:06 Pulse Ox 97 05/30/25 12:06 BMI result Body Mass Index 33.5 Tobacco/Smoking Status: Tobacco use Status Tobacco use date assessed 10/18/24 05/30/25 12:11 Patient Tobacco Use Status Former Tobacco user 05/30/25 12:11 Tobacco use type Cigarette 05/30/25 12:11 e-Cigarette/Vaping Use Never Used 05/30/25 12:11 Thrive Assessment: Date of Thrive Assessment Date Thrive assessed 10/11/24 05/30/25 12:11 Currently or been in a relationship where the following occur: No concerns reported Coding Level of Care Code Est Pt Level 5 (64957) Diagnoses Hospital discharge follow-up Z09 Hx of intermediate use of blood thinners Z79.01 Subdural hematoma S06.5XAA Nonintractable epilepsy without status epilepticus, unspecified epilepsy type G40.909 Epilepsy type: unspecified Intractability: not intractable Status epilepticus: without status epilepticus LFT elevation R79.89 Primary hypertension I10 Hypertension type: primary hypertension Coronary artery disease involving [place] coronary artery of [place] heart without angina pectoris I25.10 Associated angina: without angina Coronary Disease-Associated Artery/Lesion type: [place] artery [place] vs. transplanted heart: [place] heart Stented coronary artery Z95.5 Lipid disorder E78.9 Dizziness R42 Time Spent (min) 40 Comment Reviewing hospital notes/labs/olng-hc-xghv/coordination of care Assessment & Plan Assessment & Plan (1) Hospital discharge follow-up: Code(s): Z09 - Encounter for follow-up examination after completed treatment for conditions other than malignant neoplasm Category: Medical (2) Hx of intermediate use of blood thinners: Code(s): Z79.01 - [facility] (current) use of anticoagulants Category: Medical (3) Subdural hematoma: Code(s): S06.5XAA - Traumatic subdural hemorrhage with loss of consciousness status unknown, initial encounter Category: Medical (4) Epilepsy: Code(s): G40.909 - Epilepsy, unspecified, not intractable, without status epilepticus Category: Medical Qualifiers: Epilepsy type: unspecified Intractability: not intractable Status epilepticus: without status epilepticus Qualified Code(s): G40.909 - Epilepsy, unspecified, not intractable, without status epilepticus (5) LFT elevation: Code(s): R79.89 - Other specified abnormal findings of blood chemistry Category: Medical (6) HTN (hypertension): Code(s): I10 - Essential (primary) hypertension Category: Medical Qualifiers: Hypertension type: primary hypertension Qualified Code(s): I10 - Essential (primary) hypertension (7) CAD (coronary artery disease): Code(s): I25.10 - Atherosclerotic heart disease of [place] coronary artery without angina pectoris Category: Medical Qualifiers: Associated angina: without angina Coronary Disease-Associated Artery/Lesion type: [place] artery [place] vs. transplanted heart: [place] heart Qualified Code(s): I25.10 - Atherosclerotic heart disease of [place] coronary artery without angina pectoris (8) Stented coronary artery: Comment: status post stenting of the OM and diagonal branch in August 2016 for ACS Code(s): Z95.5 - Presence of coronary angioplasty implant and graft Category: Surgical (9) Lipid disorder: Code(s): E78.9 - Disorder of lipoprotein metabolism, unspecified Category: Medical (10) Dizziness: Code(s): R42 - Dizziness and giddiness Category: Medical Plan Patient is a 70-year-old female came in today for hospital discharge follow-up dated 05/08/2025 admission , discharge 05/16/2025 Patient was at [facility] she presented with seizure, acute on chronic intracranial subdural hematoma, contusion of tongue She also have history of hypertension, lipid disorder, pulmonary embolism/DVT was on Coumadin which was stopped in hospital Currently taking enoxaparin injections after discharge from the hospital. Patient was found unresponsive by the so was brought in for evaluation In emergency room her blood pressure was 165/88 with pulse rate of 110 temperature afebrile Oxygen saturation 96% on room air Her INR was subtherapeutic CT scan of head was ordered CT scan showed 2 mm increased of subdural hematoma Neurology was consulted - The patient is on Keppra (levetiracetam) 500 mg twice daily for seizure management - The patient reported no further seizures since the adjustment of her medication dose. Anticoagulation Management: - The patient was hospitalized from May 08 to May 16 and had embolization procedure - The procedure involved treating bilateral vascular issues related to a bleeding vessel secondary to a fall, which potentially contributed to the patient's seizures. - The patient indicated that Warfarin (Coumadin) was started prior to her recent seizure. - The patient requires overlap of Lovenox (enoxaparin) injections with Warfarin therapy due to her recent embolization. - The patient expressed concern about the financial cost of Lovenox injections and preferred transitioning to Warfarin, pending INR monitoring. - she need updated INR before going back on Coumadin - The patient has ceased Lovenox as of today due to financial constraints and lack of further prescription. - There is a plan to resume Lovenox pending further instructions from her neurologist, Dr. Oseguera. Medications: - Keppra (levetiracetam) 500 mg twice daily for seizure management. - Lovenox (enoxaparin) injections for anticoagulation bridge therapy (recently ceased due to prescription and financial issues). - Warfarin for anticoagulation therapy, transitioning from Lovenox. - Nifedipine for blood pressure management. - Losartan for hypertension management. - Citalopram for depression. - Atorvastatin for hyperlipidemia. Social History: - The patient resides at home and uses a walker for mobility assistance when needed. - Financial constraints affecting medication adherence, particularly with Lovenox therapy. - No current employment status or details of family status discussed. Problem List - Seizures - Recent embolization procedure - Hematoma brain enlarged from before - Anticoagulation management with Warfarin - Hypertension - Hyperlipidemia - elevated LFTs. Patient Instructions - Continue taking Keppra 500 mg twice daily for seizure management. - Follow up with neurology for anticoagulation management and possible prescription renewal for Lovenox. - Monitor and report any signs of bleeding or further seizures immediately. - Ensure INR levels are checked regularly, starting today, as directed by healthcare providers. - Discuss any financial concerns regarding medication costs with the healthcare team. - Use a cane or walker as needed to prevent falls. - stop atorvastatin due to worsening LFTs - have ultrasound of liver scheduled for July Follow-up September Orders: Orders Prothrombin Time INR Today Z79.01 - manager long term care (current) use of anticoagulants Medications: New enoxaparin 80 mg (0.8 mL) subcut Q12H 8 mL 0RF 5 days On Hold atorvastatin Hold Comment: Doctor's Order 80 mg PO DAILY 90 days 90 tabs 0RF E78.9 - Disorder of lipoprotein metabolism, unspecified
== END 2025-05-30 12:38 | disposition home or self-care (01) ==
LOC: HO.HMCC 12:03
PROVIDERS: PCP Internal Medicine; Visit Provider Internal Medicine
DX: S06.5XAA Traumatic subdural hemorrhage with loss of consciousness status unknown, initial encounter (principal); G40.909 Epilepsy, unspecified, not intractable, without status epilepticus; Z09 Encounter for follow-up examination after completed treatment for conditions other than malignant neoplasm; Z79.01 Long term (current) use of anticoagulants; R79.89 Other specified abnormal findings of blood chemistry; I10 Essential (primary) hypertension; I25.10 Atherosclerotic heart disease of native coronary artery without angina pectoris; Z95.5 Presence of coronary angioplasty implant and graft; E78.9 Disorder of lipoprotein metabolism, unspecified; R42 Dizziness and giddiness

== ENCOUNTER 2025-05-30 12:03 | Outpatient (REF) | payer MEDICARE, SELFPAY ==
[2025-05-30 16:28] LABS: INTERNATIONAL NORM RATIO 1.0 (0.9-1.1); Prothrombin Time 11.7 SEC (10.9-12.4)
== END 2025-05-30 12:04 | disposition home or self-care (01) ==
LOC: HO.HMGCLDS 12:03
PROVIDERS: PCP Internal Medicine; Visit Provider Internal Medicine
DX: Z09 Encounter for follow-up examination after completed treatment for conditions other than malignant neoplasm (principal); S06.5XAA Traumatic subdural hemorrhage with loss of consciousness status unknown, initial encounter; R79.89 Other specified abnormal findings of blood chemistry; G40.909 Epilepsy, unspecified, not intractable, without status epilepticus; I10 Essential (primary) hypertension; I25.10 Atherosclerotic heart disease of native coronary artery without angina pectoris; E78.9 Disorder of lipoprotein metabolism, unspecified; R42 Dizziness and giddiness; Z95.5 Presence of coronary angioplasty implant and graft; Z79.01 Long term (current) use of anticoagulants; Z79.899 Other long term (current) drug therapy
CPT/HCPCS: 36415; 85610; 99212

== ENCOUNTER 2025-06-02 13:43 | Outpatient (AMB) | payer MEDICARE, SELFPAY ==
--- NOTE | 2025-06-02 13:52 | MHC.OFFVISCO ---
Intake Vital Signs 06/02/25 15:30 BP 118/70 Blood Pressure Location Lt brachial Position Sitting Pulse 68 Pulse Source Auscultation Comment pt heart rate mostly regular with a few runs of extra beats -listend to H Intake Visit Reasons: Anticoagulation Impregnating Tank Operator Required: No Allergies oxycodone (OXYCODONE) Adverse Reaction (Intermediate, Verified 06/02/25 13:43) SEVERE VOMITING Medication List - Last Reconciled 06/02/25 by Frances Costa RN atorvastatin 80 mg PO DAILY 90 days Held on 05/30/25. Instructions: Doctor's Order citalopram 40 mg PO DAILY enoxaparin 80 mg (0.8 mL) subcut Q12H 5 days ezetimibe 10 mg PO DAILY levetiracetam 500 mg PO BID losartan 50 mg PO DAILY nifedipine ER 30 mg PO DAILY Is last menstrual period known: Yes (AGE 59s ) Post menopausal: Yes Patient : No Nursing Note New pt from Dr Savage INR 1.5 out of therapeutic range 2.0-2.5 ( lower range s/p h of brain bleed from fall) Medications and supplements reviewed- not on aspirin - not sure when she stopped it -she states she was off it before the brain bleeds has 2 cardiac stents post [place] 7 years ago Patient status: Pt came to [facility] with spouse who is also on warfarin she is s/p Fall with LOC AND BRAIN BLEED 10/2024 then 12/2024 dveloped DVT AND PE WAS ON DOAC, THEN 05/2025 HAD SEIZURE WITH BRAIN BLEED AND HAD EMBOLECTOMY. Medications or supplements: UPDATED IN EMR Diet: GOOD VS: HR 68 mostly regular with a brief run of extra beats heard x 2 over within 90 second assessment. Pt states she sometimes can feel them and has had cardiac work up Denies any signs and symptoms of bleeding or clotting or unusual bruising Bleeding, bruising, clotting discussed Nutritional guidance given: NO GREENS TODAY ENC TO HAVE FOODS TO HELP RAISE THE INR TODAY Dose: 5mg since Thursday05/30/25 - cont 5mg Thursday + Sat/ 2.5mg Thursday 5mg Thursday with recheck Thursday06/06/2025 * She only has enough lovenox until Thursday morning- she will cont lovenox per Md orders F/U INR Date: 06/06/2025 ?? Patient and spouse verbalizing understanding of instructions given. 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 if seizure related ) Cardiovascular Hx: HTN, Angina (high chest pain vs heartburn ), [place] (7 years ago ) and Varicose Veins (minor) Lung Disease HX: DVT/PE (little bit of sob and discomfort prior ) and Other (covid + April 2024 , 1 set of covid vaccines 2020 or 2021 ) Musculoskeletal Hx: Arthritis (hands mostly) Blood Disorder Hx: Hyperlipidemia (cholesterol ) and Other (elevated liver enzymes from cholesterol med ) GI Hx: Other (only after taking meds at night ) Neurological Hx: Serious Head Injury (s/p fall LOC LACERATIONS ), Epilepsy/Seizures (X 2 ) and Migraines/Headaches (AFTER FALL HAD PROCEDURES TO SEAL OFF THE BLEEDS - TROUBLE SPEAKING RIGHT ARM WEAKNESS AND NUMB - ALL RESOLVED - ACCEPT A LITTLE OFF BALANCE ) Cancer HX: No (FATHER - R/T ) Psych. Illness/Depression: Yes (ANXIETY DEPRESSION TREATED WITH RELIEF ) Is last menstrual period known: Yes (AGE 59s ) Post menopausal: Yes Patient : No Surgeries: gallbladder removed salivary gland -removed age 50s cardiac cath with stents 2018 embolization 05/2025 from 2nd brain bleed 1 c section Anti-Coag. Education Record Teaching Recipient: Patient and Significant Other What is the easiest way to learn: Reading and Demonstration Significant other who can be involved in Teaching Process when Indicated: SPOUSE TARIK Impregnating Tank Operator Required: No Readiness To Learn: Excellent Teaching Methods: Discussion, Handout and Protocol Education Intervention/Brief Description of Teaching 1. Able to state reason for taking Warfarin: Yes 2. Able to state Pain Management techniques: Yes 3. Able to state action of Warfarin.: Yes Able to state current dose, pill color, how and when Warfarin to be taken: Yes Able to identify signs of bleeding &/or clotting: Yes 4. Able to identify need to keep diet consistent in regard to vitamin K intake: Yes Able to state restriction on alcohol: Yes 5. Able to state need for compliance with PT/INR testing: Yes Describes rationale for carrying ID and wearing Medic Alert bracelet: Yes Patient instructed to monitor for excess bruising or signs/symptoms of clotting or bleeding: Yes 6. Able to state that there are drugs that interact with Warfin: Yes 7. Able to state the need to seek medical attention when illness/injury occur.: Yes Describes the need to avoid activities with high risk of injury: Yes 8. Able to state duration of treatment: Yes 9. Demonstrates understanding of notifying all providers of pending dental surgical, or other invasive procedures: Yes 10. Able to state Home Care instructions Questionnaires HAS-BLED Does the patient had uncontrolled Hypertension?: No Does the patient have renal disease?: No Does the patient have liver disease?: Yes (ELEVATED LIVER ENZYMES R/T CHOLESTEROL MEDICATION) Does the patient have a history of stroke?: Yes (HEMORRAGHIC) Has the patient had major bleeding or predisposition to bleeding?: Yes (BRAIN BLEED X2 - ON WARFARIN AND LOVENOX BRIDGE ) Does the patient have labile INRs?: Yes (JUST STARTED WARFARIN AND ON LOVNEOX BRIDGE ) Is the patient over 65 years of age?: Yes Is the patient on medications that gives them a predisposition to bleeding?: Yes Does the patient use alcohol?: Yes (RARE) HAS-BLED Score: 7 CHADSVASC Age: 66-74 Gender: Female Does the patient have a history of CHF?: No Does the patient have a history of Hypertension?: Yes Does the patient have a history of Stroke/TIA/Thromboembolism?: Yes (BRAIN BLEED PE AND DVT ) Does the patient have a history of Vascular Disease (prior LA, PAD or aortic plaque)?: Yes (LA 7 YEARS AGO ) Does the patient have a history of Diabetes?: No CHADS VACS Score: 6 Atul Prediction Score Rsk VTE Active Cancer: No Previous VTE, excluding superficial vein thrombosis: Yes Reduced mobility: No Already known Thrombophilic Condition: Yes (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 IF RELATED TO COVID 2023 ) With-in last month Trauma and/or Surgery: Yes (MAY 2024 ) Elderly 70 year or older: Yes Heart and/or Respiratory Failure: No Acute Myocardial infarction and/or Ischemic Stroke: Yes (7 YEARS AGO ) Acute Infection and/or Rheumatologic Disorder: No Obesity (BMI 30 or greater): Yes Ongoing Hormonal Treatment: No Score: 11 Atul Score less than 4; Low Risk of VTE Atul Score 4 or greater; High Risk of VTE Coding Level of Care Code New Patient Level 2 Diagnoses Current use of anticoagulant therapy Z79.01 Assessment & Plan Assessment & Plan (1) Current use of anticoagulant therapy: Code(s): Z79.01 - [facility] (current) use of anticoagulants Medications: New warfarin 5 mg See Protocol PO DAILY Discontinued atorvastatin Discontinued Reason: Doctor's Order 80 mg PO DAILY 90 days 90 tabs 0RF E78.9 - Disorder of lipoprotein metabolism, unspecified
[2025-06-02 14:19] LABS: Prothrombin Time Whole Bld POC 18.0 sec (11.1-13.5); ~PT, ~INR - Anti Coag Clinic 1.5 (0.9-1.1)
[2025-06-02 15:30] VITALS: BP 118/70; PULSE 68
== END 2025-06-02 15:47 | disposition home or self-care (01) ==
LOC: HO.ACS 13:43
PROVIDERS: PCP Internal Medicine; Visit Provider Internal Medicine Medical Oncology
DX: Z79.01 Long term (current) use of anticoagulants (principal)

== ENCOUNTER → 2025-06-02 13:43 | Outpatient (BNVA) | payer MEDICARE, SELFPAY | PROVIDERS: PCP Internal Medicine; Visit Provider Internal Medicine Medical Oncology | DX: E78.9 Disorder of lipoprotein metabolism, unspecified (principal); Z79.01 Long term (current) use of anticoagulants | CPT/HCPCS: 85610; 99202 ==

== ENCOUNTER 2025-06-06 11:25 | Outpatient (AMB) | payer MEDICARE, SELFPAY ==
[2025-06-06 11:31] LABS: Prothrombin Time Whole Bld POC 24.4 sec (11.1-13.5); ~PT, ~INR - Anti Coag Clinic 2.0 (0.9-1.1)
--- NOTE | 2025-06-06 11:44 | MHC.OFFVISCO ---
Intake Intake Visit Reasons: Anticoagulation Allergies oxycodone (OXYCODONE) Adverse Reaction (Intermediate, Verified 06/02/25 13:43) SEVERE VOMITING Medication List - Last Reconciled 06/06/25 by Rocío Allen RN citalopram 40 mg PO DAILY enoxaparin 80 mg See Protocol subcut Q12H 5 days ezetimibe 10 mg PO DAILY levetiracetam 500 mg PO BID losartan 50 mg PO DAILY nifedipine ER 30 mg PO DAILY warfarin 5 mg See Protocol PO DAILY Nursing Note PT.DENIES ANY CP,SOB, BLEEDING OR MED CHANGES. STOP LOVENOX. WARFARIN: 5MG 2.5MG 5MG RECHECK ON 06/09. MAY HAVE LIGHT GREENS GOOD UNDERSTANDING OF DOSING INSTR.BY PT.AND SPOUSE. Anti-Coag Initial Assessment Social Hx Patient Tobacco Use Status: Former Tobacco user (10/2024 - cigaretts 1 p q 3 days ) Tobacco use type: Cigarette alcohol intake: current Alcohol intake frequency: holidays/special occasions only Cardiovascular Hx: HTN, Angina (high chest pain vs heartburn ), [place] (7 years ago ) and Varicose Veins (minor) Lung Disease HX: DVT/PE (little bit of sob and discomfort prior ) and Other (covid + April 2024 , 1 set of covid vaccines 2020 or 2021 ) Musculoskeletal Hx: Arthritis (hands mostly) Blood Disorder Hx: Hyperlipidemia (cholesterol ) and Other (elevated liver enzymes from cholesterol med ) GI Hx: Other (only after taking meds at night ) Neurological Hx: Serious Head Injury (s/p fall LOC LACERATIONS ), Epilepsy/Seizures (X 2 ) and Migraines/Headaches (AFTER FALL HAD PROCEDURES TO SEAL OFF THE BLEEDS - TROUBLE SPEAKING RIGHT ARM WEAKNESS AND NUMB - ALL RESOLVED - ACCEPT A LITTLE OFF BALANCE ) Cancer HX: No (FATHER - R/T ) Psych. Illness/Depression: Yes (ANXIETY DEPRESSION TREATED WITH RELIEF ) Coding Level of Care Code Est Patient Level 1 Diagnoses Current use of anticoagulant therapy Z79.01 Assessment & Plan Assessment & Plan (1) Current use of anticoagulant therapy: Code(s): Z79.01 - alf (current) use of anticoagulants Category: Medical
== END 2025-06-06 11:48 | disposition home or self-care (01) ==
LOC: HO.ACS 11:25
PROVIDERS: PCP Internal Medicine; Visit Provider Internal Medicine Medical Oncology
DX: Z79.01 Long term (current) use of anticoagulants (principal)

== ENCOUNTER → 2025-06-06 11:25 | Outpatient (BNVA) | payer MEDICARE, SELFPAY | PROVIDERS: PCP Internal Medicine; Visit Provider Internal Medicine Medical Oncology | DX: Z51.81 Encounter for therapeutic drug level monitoring (principal); Z79.01 Long term (current) use of anticoagulants | CPT/HCPCS: 85610; 99211 ==

== ENCOUNTER 2025-06-09 10:04 | Outpatient (AMB) | payer MEDICARE, SELFPAY ==
--- NOTE | 2025-06-09 10:29 | MHC.OFFVISCO ---
Intake Intake Visit Reasons: Anticoagulation Allergies oxycodone (OXYCODONE) Adverse Reaction (Intermediate, Verified 06/09/25 10:23) SEVERE VOMITING Medication List - Last Reconciled 06/09/25 by Gabrielle Foley RN citalopram 40 mg PO DAILY enoxaparin 80 mg See Protocol subcut Q12H 5 days ezetimibe 10 mg PO DAILY levetiracetam 500 mg PO BID losartan 50 mg PO DAILY nifedipine ER 30 mg PO DAILY warfarin 5 mg See Protocol PO DAILY Nursing Note INR: 2.3- in therapeutic range 2-2.5 Medications and supplements reviewed- no changes No changes in health, diet, medications, or supplements, Denies any signs and symptoms of bleeding or bruising or clotting. Bleeding, bruising, clotting discussed Nutritional guidance given Dose: 2.5mg x 2, 5mg x 5 F/U INR: tu06/13/25 Patient verbalizes understanding of instructions given Anti-Coag Initial Assessment Social Hx Patient Tobacco Use Status: Former Tobacco user (10/2024 - cigaretts 1 p q 3 days ) Tobacco use type: Cigarette alcohol intake: current Alcohol intake frequency: holidays/special occasions only Cardiovascular Hx: HTN, Angina (high chest pain vs heartburn ), [place] (7 years ago ) and Varicose Veins (minor) Lung Disease HX: DVT/PE (little bit of sob and discomfort prior ) and Other (covid + April 2024 , 1 set of covid vaccines 2020 or 2021 ) Musculoskeletal Hx: Arthritis (hands mostly) Blood Disorder Hx: Hyperlipidemia (cholesterol ) and Other (elevated liver enzymes from cholesterol med ) GI Hx: Other (only after taking meds at night ) Neurological Hx: Serious Head Injury (s/p fall LOC LACERATIONS ), Epilepsy/Seizures (X 2 ) and Migraines/Headaches (AFTER FALL HAD PROCEDURES TO SEAL OFF THE BLEEDS - TROUBLE SPEAKING RIGHT ARM WEAKNESS AND NUMB - ALL RESOLVED - ACCEPT A LITTLE OFF BALANCE ) Cancer HX: No (FATHER - R/T ) Psych. Illness/Depression: Yes (ANXIETY DEPRESSION TREATED WITH RELIEF ) Coding Level of Care Code Est Patient Level 1 Diagnoses Current use of anticoagulant therapy Z79.01 Assessment & Plan Assessment & Plan (1) Current use of anticoagulant therapy: Code(s): Z79.01 - assisted (current) use of anticoagulants Category: Medical Medications: On Hold enoxaparin Hold Comment: Doctor's Order 80 mg See Protocol subcut Q12H 5 days 8 mL 0RF
[2025-06-09 10:30] LABS: Prothrombin Time Whole Bld POC 28.0 sec (11.1-13.5); ~PT, ~INR - Anti Coag Clinic 2.3 (0.9-1.1)
== END 2025-06-09 10:50 | disposition home or self-care (01) ==
LOC: HO.ACS 10:04
PROVIDERS: PCP Internal Medicine; Visit Provider Internal Medicine Medical Oncology
DX: Z79.01 Long term (current) use of anticoagulants (principal)

== ENCOUNTER → 2025-06-09 10:04 | Outpatient (BNVA) | payer MEDICARE, SELFPAY | PROVIDERS: PCP Internal Medicine; Visit Provider Internal Medicine Medical Oncology | DX: Z51.81 Encounter for therapeutic drug level monitoring (principal); Z79.01 Long term (current) use of anticoagulants | CPT/HCPCS: 85610; 99211 ==

== ENCOUNTER 2025-06-13 13:51 | Outpatient (AMB) | payer MEDICARE, SELFPAY ==
[2025-06-13 14:06] LABS: Prothrombin Time Whole Bld POC 33.5 sec (11.1-13.5); ~PT, ~INR - Anti Coag Clinic 2.8 (0.9-1.1)
--- NOTE | 2025-06-13 14:16 | MHC.OFFVISCO ---
Intake Intake Visit Reasons: Anticoagulation Allergies oxycodone (OXYCODONE) Adverse Reaction (Intermediate, Verified 06/13/25 14:00) SEVERE VOMITING Medication List - Last Reconciled 06/13/25 by Frances Costa RN citalopram 40 mg PO DAILY enoxaparin 80 mg See Protocol subcut Q12H 5 days Held on 06/09/25. Instructions: Doctor's Order ezetimibe 10 mg PO DAILY levetiracetam 500 mg PO BID losartan 50 mg PO DAILY nifedipine ER 30 mg PO DAILY warfarin 5 mg See Protocol PO DAILY Nursing Note INR: 2.8 Just out of therapeutic range 2.0-2.5 She ate tomatoes over the weekend- which can raise the INR Medications and supplements reviewed No changes in health, diet, medications, or supplements, Denies any signs and symptoms of bleeding or bruising or clotting. Bleeding, bruising, clotting discussed Nutritional guidance given - eat a green tonight or tomorrow Dose: decrease dose slightly due to hx of brain bleed 2.5mg sun tue thur/ 5mg x 4 days F/U INR: 06/16/2025 same day as spouse Patient verbalizes understanding of instructions given Anti-Coag Initial Assessment Social Hx Patient Tobacco Use Status: Former Tobacco user (10/2024 - cigaretts 1 p q 3 days ) Tobacco use type: Cigarette alcohol intake: current Alcohol intake frequency: holidays/special occasions only Cardiovascular Hx: HTN, Angina (high chest pain vs heartburn ), [place] (7 years ago ) and Varicose Veins (minor) Lung Disease HX: DVT/PE (little bit of sob and discomfort prior ) and Other (covid + April 2024 , 1 set of covid vaccines 2020 or 2021 ) Musculoskeletal Hx: Arthritis (hands mostly) Blood Disorder Hx: Hyperlipidemia (cholesterol ) and Other (elevated liver enzymes from cholesterol med ) GI Hx: Other (only after taking meds at night ) Neurological Hx: Serious Head Injury (s/p fall LOC LACERATIONS ), Epilepsy/Seizures (X 2 ) and Migraines/Headaches (AFTER FALL HAD PROCEDURES TO SEAL OFF THE BLEEDS - TROUBLE SPEAKING RIGHT ARM WEAKNESS AND NUMB - ALL RESOLVED - ACCEPT A LITTLE OFF BALANCE ) Cancer HX: No (FATHER - R/T ) Psych. 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
== END 2025-06-13 14:22 | disposition home or self-care (01) ==
LOC: HO.ACS 13:51
PROVIDERS: PCP Internal Medicine; Visit Provider Internal Medicine Medical Oncology
DX: Z79.01 Long term (current) use of anticoagulants (principal)

== ENCOUNTER → 2025-06-13 13:51 | Outpatient (BNVA) | payer MEDICARE, SELFPAY | PROVIDERS: PCP Internal Medicine; Visit Provider Internal Medicine Medical Oncology | DX: Z51.81 Encounter for therapeutic drug level monitoring (principal); Z79.01 Long term (current) use of anticoagulants | CPT/HCPCS: 85610; 99211 ==

== ENCOUNTER 2025-06-16 13:29 | Outpatient (AMB) | payer MEDICARE, SELFPAY ==
[2025-06-16 13:55] LABS: Prothrombin Time Whole Bld POC 30.1 sec (11.1-13.5); ~PT, ~INR - Anti Coag Clinic 2.5 (0.9-1.1)
--- NOTE | 2025-06-16 14:03 | MHC.OFFVISCO ---
Intake Intake Visit Reasons: Anticoagulation Allergies oxycodone (OXYCODONE) Adverse Reaction (Intermediate, Verified 06/16/25 13:49) SEVERE VOMITING Medication List - Last Reconciled 06/16/25 by Frances Costa RN citalopram 40 mg PO DAILY enoxaparin 80 mg See Protocol subcut Q12H 5 days Held on 06/09/25. Instructions: Doctor's Order ezetimibe 10 mg PO DAILY levetiracetam 500 mg PO BID losartan 50 mg PO DAILY nifedipine ER 30 mg PO DAILY warfarin 5 mg See Protocol PO DAILY Nursing Note INR: 2.5 in therapeutic range 2.0-2.5 Medications and supplements reviewed No changes in health, diet, medications, or supplements, Denies any signs and symptoms of bleeding or bruising or clotting. Bleeding, bruising, clotting discussed Nutritional guidance given Dose: 2.5mg sun tue thur/ 6mg x 4 days F/U INR: 1 week Patient verbalizes understanding of instructions given Anti-Coag Initial Assessment Social Hx Patient Tobacco Use Status: Former Tobacco user (10/2024 - cigaretts 1 p q 3 days ) Tobacco use type: Cigarette alcohol intake: current Alcohol intake frequency: holidays/special occasions only Cardiovascular Hx: HTN, Angina (high chest pain vs heartburn ), [place] (7 years ago ) and Varicose Veins (minor) Lung Disease HX: DVT/PE (little bit of sob and discomfort prior ) and Other (covid + April 2024 , 1 set of covid vaccines 2020 or 2021 ) Musculoskeletal Hx: Arthritis (hands mostly) Blood Disorder Hx: Hyperlipidemia (cholesterol ) and Other (elevated liver enzymes from cholesterol med ) GI Hx: Other (only after taking meds at night ) Neurological Hx: Serious Head Injury (s/p fall LOC LACERATIONS ), Epilepsy/Seizures (X 2 ) and Migraines/Headaches (AFTER FALL HAD PROCEDURES TO SEAL OFF THE BLEEDS - TROUBLE SPEAKING RIGHT ARM WEAKNESS AND NUMB - ALL RESOLVED - ACCEPT A LITTLE OFF BALANCE ) Cancer HX: No (FATHER - R/T ) Psych. Illness/Depression: Yes (ANXIETY DEPRESSION TREATED WITH RELIEF ) Coding Level of Care Code Est Patient Level 1 Diagnoses Current use of anticoagulant therapy Z79.01 Results AMB INR Fingerstick AMB INR Fingerstick 2.5 Last Edit by Frances Costa RN on 06/16/25 13:57 manual entry Assessment & Plan Assessment & Plan (1) Current use of anticoagulant therapy: Code(s): Z79.01 - snf (current) use of anticoagulants Category: Medical
== END 2025-06-16 14:06 | disposition home or self-care (01) ==
LOC: HO.ACS 13:29
PROVIDERS: PCP Internal Medicine; Visit Provider Internal Medicine Medical Oncology
DX: Z79.01 Long term (current) use of anticoagulants (principal)

== ENCOUNTER → 2025-06-16 13:29 | Outpatient (BNVA) | payer MEDICARE, SELFPAY | PROVIDERS: PCP Internal Medicine; Visit Provider Internal Medicine Medical Oncology | DX: Z51.81 Encounter for therapeutic drug level monitoring (principal); Z79.01 Long term (current) use of anticoagulants | CPT/HCPCS: 85610; 99211 ==

== ENCOUNTER 2025-06-23 10:28 | Outpatient (AMB) | payer MEDICARE, SELFPAY ==
[2025-06-23 10:39] LABS: Prothrombin Time Whole Bld POC 30.0 sec (11.1-13.5); ~PT, ~INR - Anti Coag Clinic 2.5 (0.9-1.1)
--- NOTE | 2025-06-23 10:45 | MHC.OFFVISCO ---
Intake Intake Visit Reasons: Anticoagulation Allergies oxycodone (OXYCODONE) Adverse Reaction (Intermediate, Verified 06/23/25 10:34) SEVERE VOMITING Medication List - Last Reconciled 06/23/25 by Frances Costa RN citalopram 40 mg PO DAILY enoxaparin 80 mg See Protocol subcut Q12H 5 days Held on 06/09/25. Instructions: Doctor's Order ezetimibe 10 mg PO DAILY levetiracetam 500 mg PO BID losartan 50 mg PO DAILY nifedipine ER 30 mg PO DAILY warfarin 5 mg See Protocol PO DAILY Nursing Note INR: 2.5 in therapeutic range Medications and supplements reviewed No changes in health, diet, medications, or supplements, Denies any signs and symptoms of bleeding or bruising or clotting. Bleeding, bruising, clotting discussed Nutritional guidance given Dose: 2.5MG SUN TUE THUR/ 5MG X 4 DAYS F/U INR: 1 WEEK Patient verbalizes understanding of instructions given Anti-Coag Initial Assessment Social Hx Patient Tobacco Use Status: Former Tobacco user (10/2024 - cigaretts 1 p q 3 days ) Tobacco use type: Cigarette alcohol intake: current Alcohol intake frequency: holidays/special occasions only Cardiovascular Hx: HTN, Angina (high chest pain vs heartburn ), [place] (7 years ago ) and Varicose Veins (minor) Lung Disease HX: DVT/PE (little bit of sob and discomfort prior ) and Other (covid + April 2024 , 1 set of covid vaccines 2020 or 2021 ) Musculoskeletal Hx: Arthritis (hands mostly) Blood Disorder Hx: Hyperlipidemia (cholesterol ) and Other (elevated liver enzymes from cholesterol med ) GI Hx: Other (only after taking meds at night ) Neurological Hx: Serious Head Injury (s/p fall LOC LACERATIONS ), Epilepsy/Seizures (X 2 ) and Migraines/Headaches (AFTER FALL HAD PROCEDURES TO SEAL OFF THE BLEEDS - TROUBLE SPEAKING RIGHT ARM WEAKNESS AND NUMB - ALL RESOLVED - ACCEPT A LITTLE OFF BALANCE ) Cancer HX: No (FATHER - R/T ) Psych. 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
== END 2025-06-23 10:47 | disposition home or self-care (01) ==
LOC: HO.ACS 10:28
PROVIDERS: PCP Internal Medicine; Visit Provider Internal Medicine Medical Oncology
DX: Z79.01 Long term (current) use of anticoagulants (principal)

== ENCOUNTER → 2025-06-23 10:28 | Outpatient (BNVA) | payer MEDICARE, SELFPAY | PROVIDERS: PCP Internal Medicine; Visit Provider Internal Medicine Medical Oncology | DX: Z51.81 Encounter for therapeutic drug level monitoring (principal); Z79.01 Long term (current) use of anticoagulants | CPT/HCPCS: 85610; 99211 ==

== ENCOUNTER 2025-06-30 10:21 | Outpatient (AMB) | payer MEDICARE, SELFPAY ==
[2025-06-30 10:38] LABS: Prothrombin Time Whole Bld POC 28.9 sec (11.1-13.5); ~PT, ~INR - Anti Coag Clinic 2.4 (0.9-1.1)
--- NOTE | 2025-06-30 10:40 | MHC.OFFVISCO ---
Intake Intake Visit Reasons: Anticoagulation Allergies oxycodone (OXYCODONE) Adverse Reaction (Intermediate, Verified 06/30/25 10:30) SEVERE VOMITING Medication List - Last Reconciled 06/30/25 by Shi Estevez, МАРИНА citalopram 40 mg PO DAILY ezetimibe 10 mg PO DAILY levetiracetam 500 mg PO BID losartan 50 mg PO DAILY nifedipine ER 30 mg PO DAILY warfarin 5 mg See Protocol PO DAILY Nursing Note INR: 2.4 in therapeutic range 2-2.5 Medications and supplements reviewed No changes in health, diet, medications, or supplements, Denies any signs and symptoms of bleeding or bruising or clotting. Bleeding, bruising, clotting discussed Nutritional guidance given Dose: 5mg X 4 days and 2.5mg X 3 days (Sun//Th) F/U INR: 2 weeks Patient verbalizes understanding of instructions given Anti-Coag Initial Assessment Social Hx Patient Tobacco Use Status: Former Tobacco user (10/2024 - cigaretts 1 p q 3 days ) Tobacco use type: Cigarette alcohol intake: current Alcohol intake frequency: holidays/special occasions only Cardiovascular Hx: HTN, Angina (high chest pain vs heartburn ), [place] (7 years ago ) and Varicose Veins (minor) Lung Disease HX: DVT/PE (little bit of sob and discomfort prior ) and Other (covid + April 2024 , 1 set of covid vaccines 2020 or 2021 ) Musculoskeletal Hx: Arthritis (hands mostly) Blood Disorder Hx: Hyperlipidemia (cholesterol ) and Other (elevated liver enzymes from cholesterol med ) GI Hx: Other (only after taking meds at night ) Neurological Hx: Serious Head Injury (s/p fall LOC LACERATIONS ), Epilepsy/Seizures (X 2 ) and Migraines/Headaches (AFTER FALL HAD PROCEDURES TO SEAL OFF THE BLEEDS - TROUBLE SPEAKING RIGHT ARM WEAKNESS AND NUMB - ALL RESOLVED - ACCEPT A LITTLE OFF BALANCE ) Cancer HX: No (FATHER - R/T ) Psych. Illness/Depression: Yes (ANXIETY DEPRESSION TREATED WITH RELIEF ) Coding Level of Care Code Est Patient Level 1 Diagnoses Current use of anticoagulant therapy Z79.01 Assessment & Plan Assessment & Plan (1) Current use of anticoagulant therapy: Code(s): Z79.01 - intermediate (current) use of anticoagulants Category: Medical
== END 2025-06-30 10:44 | disposition home or self-care (01) ==
LOC: HO.ACS 10:21
PROVIDERS: PCP Internal Medicine; Visit Provider Internal Medicine Medical Oncology
DX: Z79.01 Long term (current) use of anticoagulants (principal)

== ENCOUNTER → 2025-06-30 10:21 | Outpatient (BNVA) | payer MEDICARE, SELFPAY | PROVIDERS: PCP Internal Medicine; Visit Provider Internal Medicine Medical Oncology | DX: Z51.81 Encounter for therapeutic drug level monitoring (principal); Z79.01 Long term (current) use of anticoagulants | CPT/HCPCS: 85610; 99211 ==

== ENCOUNTER 2025-07-11 10:13 | Outpatient (REF) | payer MEDICARE, SELFPAY ==
--- NOTE | ~2025-07-11 | US_ITS ---
CLINICAL HISTORY: Elevated liver enzymes US abdomen complete Comparison: None provided Findings: The visualized pancreas is normal. The aorta and inferior vena cava are normal caliber. The liver is increased in size and echotexture, measuring up to 17.5 cm. There is no intrahepatic bile duct dilatation. The common duct is 15 mm in diameter. The gallbladder is surgically absent. The main portal vein is antegrade. The right kidney is 10.7 cm in length. The left kidney is 10.8 cm in length. Probable 5 cm lower pole cyst. The spleen is normal. No ascites. IMPRESSION: Significantly limited evaluation by body habitus and bowel gas. Mild hepatomegaly and mild hepatic steatosis. Postsurgical prominence of the common bile duct. This document has been electronically signed by: Silas Graham MD on 07/12/2025 10:39:28
== END 2025-07-11 10:14 | disposition home or self-care (01) ==
LOC: HO.US 10:13
PROVIDERS: PCP Internal Medicine; Visit Provider Nurse Practitioner Family
DX: R74.01 Elevation of levels of liver transaminase levels (principal)
CPT/HCPCS: 76700

== ENCOUNTER → 2025-07-11 10:16 | Outpatient (BNV) | payer MEDICARE, SELFPAY | PROVIDERS: PCP Internal Medicine; Visit Provider Radiology Vascular & Interventional Radiology | DX: K76.0 Fatty (change of) liver, not elsewhere classified (principal); R16.0 Hepatomegaly, not elsewhere classified | CPT/HCPCS: 76700 ==

== ENCOUNTER 2025-07-14 10:02 | Outpatient (AMB) | payer MEDICARE, SELFPAY ==
--- NOTE | 2025-07-14 10:25 | MHC.OFFVISCO ---
Intake Intake Visit Reasons: Anticoagulation Allergies oxycodone (OXYCODONE) Adverse Reaction (Intermediate, Verified 07/14/25 10:19) SEVERE VOMITING Medication List - Last Reconciled 07/14/25 by Gabrielle Foley RN citalopram 40 mg PO DAILY ezetimibe 10 mg PO DAILY levetiracetam 500 mg PO BID losartan 50 mg PO DAILY nifedipine ER 30 mg PO DAILY warfarin 5 mg See Protocol PO DAILY Nursing Note INR 2.7-?? out of therapeutic range of 2.0-2.5 Medications and supplements reviewed Patient status: pt states fell 2 weeks ago with bruise on right hip, denies hit head Medications or supplements: no changes Diet: has had less greens- enc consistency with greens Denies any signs and symptoms of bleeding or clotting or unusual bruising Bleeding, bruising, clotting discussed Nutritional guidance given: eat greens today and tomm, no reds for 2 days Dose: take 2.5mg today then cont prev dosing- 2.5mg x 3, 5mg x 4 F/U INR Date : 1 week?? Patient verbalizing understanding of instructions given. Anti-Coag Initial Assessment Social Hx Patient Tobacco Use Status: Former Tobacco user (10/2024 - cigaretts 1 p q 3 days ) Tobacco use type: Cigarette alcohol intake: current Alcohol intake frequency: holidays/special occasions only Cardiovascular Hx: HTN, Angina (high chest pain vs heartburn ), [place] (7 years ago ) and Varicose Veins (minor) Lung Disease HX: DVT/PE (little bit of sob and discomfort prior ) and Other (covid + April 2024 , 1 set of covid vaccines 2020 or 2021 ) Musculoskeletal Hx: Arthritis (hands mostly) Blood Disorder Hx: Hyperlipidemia (cholesterol ) and Other (elevated liver enzymes from cholesterol med ) GI Hx: Other (only after taking meds at night ) Neurological Hx: Serious Head Injury (s/p fall LOC LACERATIONS ), Epilepsy/Seizures (X 2 ) and Migraines/Headaches (AFTER FALL HAD PROCEDURES TO SEAL OFF THE BLEEDS - TROUBLE SPEAKING RIGHT ARM WEAKNESS AND NUMB - ALL RESOLVED - ACCEPT A LITTLE OFF BALANCE ) Cancer HX: No (FATHER - R/T ) Psych. Illness/Depression: Yes (ANXIETY DEPRESSION TREATED WITH RELIEF ) Coding Level of Care Code Est Patient Level 1 Diagnoses Current use of anticoagulant therapy Z79.01 Results AMB INR Fingerstick AMB INR Fingerstick 2.7 Last Edit by Gabrielle Foley RN on 07/14/25 10:28 interface delay Assessment & Plan Assessment & Plan (1) Current use of anticoagulant therapy: Code(s): Z79.01 - detention (current) use of anticoagulants Category: Medical
[2025-07-14 14:01] LABS: Prothrombin Time Whole Bld POC 32.9 sec (11.1-13.5); ~PT, ~INR - Anti Coag Clinic 2.7 (0.9-1.1)
== END 2025-07-14 10:50 | disposition home or self-care (01) ==
LOC: HO.ACS 10:02
PROVIDERS: PCP Internal Medicine; Visit Provider Internal Medicine Medical Oncology
DX: Z79.01 Long term (current) use of anticoagulants (principal)

== ENCOUNTER → 2025-07-14 10:02 | Outpatient (BNVA) | payer MEDICARE, SELFPAY | PROVIDERS: PCP Internal Medicine; Visit Provider Internal Medicine Medical Oncology | DX: Z51.81 Encounter for therapeutic drug level monitoring (principal); Z79.01 Long term (current) use of anticoagulants | CPT/HCPCS: 85610; 99211 ==

== ENCOUNTER 2025-07-21 10:02 | Outpatient (AMB) | payer MEDICARE, SELFPAY ==
[2025-07-21 10:10] LABS: Prothrombin Time Whole Bld POC 39.8 sec (11.1-13.5); ~PT, ~INR - Anti Coag Clinic 3.3 (0.9-1.1)
--- NOTE | 2025-07-21 10:28 | MHC.OFFVISCO ---
Intake Intake Visit Reasons: Anticoagulation Allergies oxycodone (OXYCODONE) Adverse Reaction (Intermediate, Verified 07/21/25 10:06) SEVERE VOMITING Medication List - Last Reconciled 07/21/25 by Frances Costa RN citalopram 40 mg PO DAILY ezetimibe 10 mg PO DAILY levetiracetam 500 mg PO BID losartan 50 mg PO DAILY nifedipine ER 30 mg PO DAILY warfarin 5 mg See Protocol PO DAILY Nursing Note INR 3.3 out of therapeutic range Medications and supplements reviewed Patient status: Still has bruise on hip, walking well, *found that she has been eating chestnuts that may raise her INR plus has not had usual greens, Medications or supplements: no change in RX, was taking tylenol few weeks ago for hip Diet: good Denies any signs and symptoms of bleeding or clotting or unusual bruising Bleeding, bruising, clotting discussed Nutritional guidance given: decrease chestnuts, increase weekly greens x 3 / week Dose: hold todays dose then, then try dose again 2.5mg sun tue thur/ 5mg x 4days with 3-4 greens / week and less chestnuts F/U INR Date: 10 days Patient and spouse verbalizing understanding of instructions given. Anti-Coag Initial Assessment Social Hx Patient Tobacco Use Status: Former Tobacco user (10/2024 - cigaretts 1 p q 3 days ) Tobacco use type: Cigarette alcohol intake: current Alcohol intake frequency: holidays/special occasions only Cardiovascular Hx: HTN, Angina (high chest pain vs heartburn ), [place] (7 years ago ) and Varicose Veins (minor) Lung Disease HX: DVT/PE (little bit of sob and discomfort prior ) and Other (covid + April 2024 , 1 set of covid vaccines 2020 or 2021 ) Musculoskeletal Hx: Arthritis (hands mostly) Blood Disorder Hx: Hyperlipidemia (cholesterol ) and Other (elevated liver enzymes from cholesterol med ) GI Hx: Other (only after taking meds at night ) Neurological Hx: Serious Head Injury (s/p fall LOC LACERATIONS ), Epilepsy/Seizures (X 2 ) and Migraines/Headaches (AFTER FALL HAD PROCEDURES TO SEAL OFF THE BLEEDS - TROUBLE SPEAKING RIGHT ARM WEAKNESS AND NUMB - ALL RESOLVED - ACCEPT A LITTLE OFF BALANCE ) Cancer HX: No (FATHER - R/T ) Psych. 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
== END 2025-07-21 10:46 | disposition home or self-care (01) ==
LOC: HO.ACS 10:02
PROVIDERS: PCP Internal Medicine; Visit Provider Internal Medicine Medical Oncology
DX: Z79.01 Long term (current) use of anticoagulants (principal)

== ENCOUNTER → 2025-07-21 10:02 | Outpatient (BNVA) | payer MEDICARE, SELFPAY | PROVIDERS: PCP Internal Medicine; Visit Provider Internal Medicine Medical Oncology | DX: I26.99 Other pulmonary embolism without acute cor pulmonale (principal); Z51.81 Encounter for therapeutic drug level monitoring; Z79.01 Long term (current) use of anticoagulants | CPT/HCPCS: 85610; 99211 ==

== ENCOUNTER 2025-07-31 10:11 | Outpatient (AMB) | payer MEDICARE, SELFPAY ==
[2025-07-31 10:48] LABS: Prothrombin Time Whole Bld POC 37.0 sec (11.1-13.5); ~PT, ~INR - Anti Coag Clinic 3.1 (0.9-1.1)
--- NOTE | 2025-07-31 11:00 | MHC.OFFVISCO ---
Intake Intake Visit Reasons: Anticoagulation Allergies oxycodone (OXYCODONE) Adverse Reaction (Intermediate, Verified 07/31/25 10:41) SEVERE VOMITING Medication List - Last Reconciled 07/31/25 by Frances Costa RN citalopram 40 mg PO DAILY ezetimibe 10 mg PO DAILY levetiracetam 500 mg PO BID losartan 50 mg PO DAILY nifedipine ER 30 mg PO DAILY warfarin 5 mg See Protocol PO DAILY Nursing Note INR: 3.1 OUT OF therapeutic range 2.0-2.5 Medications and supplements reviewed *Pt states she has been out of her seizure med x 1 week- has been unable to get refill from [facility] office- enc to go to the office, or maybe call PCP for a x 1 refill until then- pt and her spouse stated they would Denies any signs and symptoms of bleeding or bruising or clotting. Bleeding, bruising, clotting discussed Nutritional guidance given- keep up weekly greens Dose: decrease weekly dose to 2.5mg x 4 days/ 5mg x 3 days F/U INR: 08/11/2025 - same day as spouse appt in [facility] Patient verbalizes understanding of instructions given Anti-Coag Initial Assessment Social Hx Patient Tobacco Use Status: Former Tobacco user (10/2024 - cigaretts 1 p q 3 days ) Tobacco use type: Cigarette alcohol intake: current Alcohol intake frequency: holidays/special occasions only Cardiovascular Hx: HTN, Angina (high chest pain vs heartburn ), [place] (7 years ago ) and Varicose Veins (minor) Lung Disease HX: DVT/PE (little bit of sob and discomfort prior ) and Other (covid + April 2024 , 1 set of covid vaccines 2020 or 2021 ) Musculoskeletal Hx: Arthritis (hands mostly) Blood Disorder Hx: Hyperlipidemia (cholesterol ) and Other (elevated liver enzymes from cholesterol med ) GI Hx: Other (only after taking meds at night ) Neurological Hx: Serious Head Injury (s/p fall LOC LACERATIONS ), Epilepsy/Seizures (X 2 ) and Migraines/Headaches (AFTER FALL HAD PROCEDURES TO SEAL OFF THE BLEEDS - TROUBLE SPEAKING RIGHT ARM WEAKNESS AND NUMB - ALL RESOLVED - ACCEPT A LITTLE OFF BALANCE ) Cancer HX: No (FATHER - R/T ) Psych. 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
== END 2025-07-31 11:08 | disposition home or self-care (01) ==
LOC: HO.ACS 10:11
PROVIDERS: PCP Internal Medicine; Visit Provider Internal Medicine Medical Oncology
DX: Z79.01 Long term (current) use of anticoagulants (principal)

== ENCOUNTER → 2025-07-31 10:11 | Outpatient (BNVA) | payer MEDICARE, SELFPAY | PROVIDERS: PCP Internal Medicine; Visit Provider Internal Medicine Medical Oncology | DX: Z86.718 Personal history of other venous thrombosis and embolism (principal); Z86.711 Personal history of pulmonary embolism; Z51.81 Encounter for therapeutic drug level monitoring; Z79.01 Long term (current) use of anticoagulants | CPT/HCPCS: 85610; 99211 ==

== ENCOUNTER 2025-08-11 09:53 | Outpatient (AMB) | payer MEDICARE, SELFPAY ==
[2025-08-11 10:14] LABS: Prothrombin Time Whole Bld POC 35.1 sec (11.1-13.5); ~PT, ~INR - Anti Coag Clinic 2.9 (0.9-1.1)
--- NOTE | 2025-08-11 10:41 | MHC.OFFVISCO ---
Intake Intake Visit Reasons: Anticoagulation Allergies oxycodone (OXYCODONE) Adverse Reaction (Intermediate, Verified 08/11/25 10:09) SEVERE VOMITING Medication List - Last Reconciled 08/11/25 by Shi Estevez, МАРИНА citalopram 40 mg PO DAILY ezetimibe 10 mg PO DAILY levetiracetam 500 mg PO BID losartan 50 mg PO DAILY nifedipine ER 30 mg PO DAILY warfarin 5 mg See Protocol PO DAILY Nursing Note INR: 2.9?out of therapeutic range of 2-2.5 Medications and supplements reviewed Patient status: Pt states she ran out of [email or web address] and has been calling both the neurologist and her pcp and has had no response. She has not had a seizure since May. Message to pcp Dr. Kumra Patel to inform pt not taking this med. Medications or supplements: no other changes Diet: usual diet for pt. She has increased her greens. Denies any signs and symptoms of bleeding or clotting or unusual bruising Bleeding, bruising, clotting discussed Nutritional guidance given: to continue her current diet and balance foods. Dose: decrease today's dose of 5mg to 2.5mg then decrease weekly dose to 2.5mg X 4 days and 5mg X 3 days (//) Pt was to decrease weekly dose after last visit but she did not follow the dosing plan. She continued with 5mg X 4 days and 2.5mg X 3 days. F/U INR Date: 2 weeks?? Patient verbalizing understanding of instructions with read back given. Anti-Coag Initial Assessment Social Hx Patient Tobacco Use Status: Former Tobacco user (10/2024 - cigaretts 1 p q 3 days ) Tobacco use type: Cigarette alcohol intake: current Alcohol intake frequency: holidays/special occasions only Cardiovascular Hx: HTN, Angina (high chest pain vs heartburn ), [place] (7 years ago ) and Varicose Veins (minor) Lung Disease HX: DVT/PE (little bit of sob and discomfort prior ) and Other (covid + April 2024 , 1 set of covid vaccines 2020 or 2021 ) Musculoskeletal Hx: Arthritis (hands mostly) Blood Disorder Hx: Hyperlipidemia (cholesterol ) and Other (elevated liver enzymes from cholesterol med ) GI Hx: Other (only after taking meds at night ) Neurological Hx: Serious Head Injury (s/p fall LOC LACERATIONS ), Epilepsy/Seizures (X 2 ) and Migraines/Headaches (AFTER FALL HAD PROCEDURES TO SEAL OFF THE BLEEDS - TROUBLE SPEAKING RIGHT ARM WEAKNESS AND NUMB - ALL RESOLVED - ACCEPT A LITTLE OFF BALANCE ) Cancer HX: No (FATHER - R/T ) Psych. Illness/Depression: Yes (ANXIETY DEPRESSION TREATED WITH RELIEF ) Coding Level of Care Code Est Patient Level 1 Diagnoses Current use of anticoagulant therapy Z79.01 Assessment & Plan Assessment & Plan (1) Current use of anticoagulant therapy: Code(s): Z79.01 - senior living (current) use of anticoagulants Category: Medical
== END 2025-08-11 10:56 | disposition home or self-care (01) ==
LOC: HO.ACS 09:53
PROVIDERS: PCP Internal Medicine; Visit Provider Internal Medicine Medical Oncology
DX: Z79.01 Long term (current) use of anticoagulants (principal)

== ENCOUNTER → 2025-08-11 09:53 | Outpatient (BNVA) | payer MEDICARE, SELFPAY | PROVIDERS: PCP Internal Medicine; Visit Provider Internal Medicine Medical Oncology | DX: Z79.01 Long term (current) use of anticoagulants (principal) | CPT/HCPCS: 85610; 99211 ==

== ENCOUNTER 2025-08-25 09:48 | Outpatient (AMB) | payer MEDICARE, SELFPAY ==
[2025-08-25 10:13] LABS: Prothrombin Time Whole Bld POC 29.8 sec (11.1-13.5); ~PT, ~INR - Anti Coag Clinic 2.5 (0.9-1.1)
--- NOTE | 2025-08-25 10:19 | MHC.OFFVISCO ---
Intake Intake Visit Reasons: Anticoagulation Allergies oxycodone (OXYCODONE) Adverse Reaction (Intermediate, Verified 08/25/25 10:08) SEVERE VOMITING Medication List - Last Reconciled 08/25/25 by Rocío Allen RN citalopram 40 mg PO DAILY ezetimibe 10 mg PO DAILY levetiracetam 500 mg PO BID losartan 50 mg PO DAILY nifedipine ER 30 mg PO DAILY warfarin 5 mg See Protocol PO DAILY Nursing Note NO CP,SOB,DIET/MED CHANBGES,FALLS OR SX OF BLEEDING. CONTINUE PRESENT DOSING AND FOLLOW-UP IN 2 WEEKS GOOD UNDERSTANDING OF DOSING INSTR. Anti-Coag Initial Assessment Social Hx Patient Tobacco Use Status: Former Tobacco user (10/2024 - cigaretts 1 p q 3 days ) Tobacco use type: Cigarette alcohol intake: current Alcohol intake frequency: holidays/special occasions only Cardiovascular Hx: HTN, Angina (high chest pain vs heartburn ), [place] (7 years ago ) and Varicose Veins (minor) Lung Disease HX: DVT/PE (little bit of sob and discomfort prior ) and Other (covid + April 2024 , 1 set of covid vaccines 2020 or 2021 ) Musculoskeletal Hx: Arthritis (hands mostly) Blood Disorder Hx: Hyperlipidemia (cholesterol ) and Other (elevated liver enzymes from cholesterol med ) GI Hx: Other (only after taking meds at night ) Neurological Hx: Serious Head Injury (s/p fall LOC LACERATIONS ), Epilepsy/Seizures (X 2 ) and Migraines/Headaches (AFTER FALL HAD PROCEDURES TO SEAL OFF THE BLEEDS - TROUBLE SPEAKING RIGHT ARM WEAKNESS AND NUMB - ALL RESOLVED - ACCEPT A LITTLE OFF BALANCE ) Cancer HX: No (FATHER - R/T ) Psych. 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
== END 2025-08-25 10:20 | disposition home or self-care (01) ==
LOC: HO.ACS 09:48
PROVIDERS: PCP Internal Medicine; Visit Provider Internal Medicine Medical Oncology
DX: Z79.01 Long term (current) use of anticoagulants (principal)

== ENCOUNTER → 2025-08-25 09:48 | Outpatient (BNVA) | payer MEDICARE, SELFPAY | PROVIDERS: PCP Internal Medicine; Visit Provider Internal Medicine Medical Oncology | DX: I74.9 Embolism and thrombosis of unspecified artery (principal); Z51.81 Encounter for therapeutic drug level monitoring; Z79.01 Long term (current) use of anticoagulants | CPT/HCPCS: 85610; 99211 ==

== ENCOUNTER → 2025-09-08 09:56 | Outpatient (BNVA) | payer MEDICARE, SELFPAY | PROVIDERS: PCP Internal Medicine; Visit Provider Internal Medicine Medical Oncology | DX: Z79.01 Long term (current) use of anticoagulants (principal) | CPT/HCPCS: 85610; 99211 ==

== ENCOUNTER 2025-09-22 10:13 | Outpatient (AMB) | payer MEDICARE, SELFPAY ==
[2025-09-22 10:32] LABS: Prothrombin Time Whole Bld POC 29.2 sec (11.1-13.5); ~PT, ~INR - Anti Coag Clinic 2.4 (0.9-1.1)
--- NOTE | 2025-09-22 10:32 | MHC.OFFVISCO ---
Intake Intake Visit Reasons: Anticoagulation Allergies oxycodone (OXYCODONE) Adverse Reaction (Intermediate, Verified 09/22/25 10:28) SEVERE VOMITING Medication List - Last Reconciled 09/22/25 by Shi Estevez RN citalopram 40 mg PO DAILY ezetimibe 10 mg PO DAILY levetiracetam 500 mg PO BID losartan 50 mg PO DAILY nifedipine ER 30 mg PO DAILY warfarin 5 mg See Protocol PO DAILY Nursing Note INR: 2.4 in therapeutic range of 2-2.5 Medications and supplements reviewed No changes in health, diet, medications, or supplements, Denies any signs and symptoms of bleeding or bruising or clotting. Bleeding, bruising, clotting discussed Nutritional guidance given Dose: 2.5mg X 4 days and 5mg X 3 days F/U INR: 2 weeks Patient verbalizes understanding of instructions given Anti-Coag Initial Assessment Social Hx Patient Tobacco Use Status: Former Tobacco user (10/2024 - cigaretts 1 p q 3 days ) Tobacco use type: Cigarette alcohol intake: current Alcohol intake frequency: holidays/special occasions only Cardiovascular Hx: HTN, Angina (high chest pain vs heartburn ), [place] (7 years ago ) and Varicose Veins (minor) Lung Disease HX: DVT/PE (little bit of sob and discomfort prior ) and Other (covid + April 2024 , 1 set of covid vaccines 2020 or 2021 ) Musculoskeletal Hx: Arthritis (hands mostly) Blood Disorder Hx: Hyperlipidemia (cholesterol ) and Other (elevated liver enzymes from cholesterol med ) GI Hx: Other (only after taking meds at night ) Neurological Hx: Serious Head Injury (s/p fall LOC LACERATIONS ), Epilepsy/Seizures (X 2 ) and Migraines/Headaches (AFTER FALL HAD PROCEDURES TO SEAL OFF THE BLEEDS - TROUBLE SPEAKING RIGHT ARM WEAKNESS AND NUMB - ALL RESOLVED - ACCEPT A LITTLE OFF BALANCE ) Cancer HX: No (FATHER - R/T ) Psych. 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
== END 2025-09-22 10:36 | disposition home or self-care (01) ==
LOC: HO.ACS 10:13
PROVIDERS: PCP Internal Medicine; Visit Provider Internal Medicine Medical Oncology
DX: Z79.01 Long term (current) use of anticoagulants (principal)

== ENCOUNTER → 2025-09-22 10:13 | Outpatient (BNVA) | payer MEDICARE, SELFPAY | PROVIDERS: PCP Internal Medicine; Visit Provider Internal Medicine Medical Oncology | DX: I26.99 Other pulmonary embolism without acute cor pulmonale (principal); Z51.81 Encounter for therapeutic drug level monitoring; Z79.01 Long term (current) use of anticoagulants | CPT/HCPCS: 85610; 99211 ==

== ENCOUNTER 2025-10-04 13:22 | Outpatient (AMB) | payer MEDICARE, SELFPAY ==
[2025-10-04 13:25] VITALS: BP 146/90; PULSE 74; RESP 17; TEMP 36.8; O2SAT 98; BMI 33.4
--- NOTE | 2025-10-04 13:25 | A.OFFPC_ITS ---
Vital Signs 10/04/25 13:25 Height 5 ft 3 in Weight 188 lb 8 oz BMI 33.4 BP 146/90 H Blood Pressure Location Lt brachial Position Sitting Respiration 17 Pulse 74 Pulse Source Pulse Oximeter Temp 98.2 F Temp Source Oral Pulse Oximetry (%) 98 Oxygen Delivery Method Room Air Intake Visit Reasons: Annual PE - see comments Allergies oxycodone (OXYCODONE) Adverse Reaction (Intermediate, Verified 10/04/25 13:25) SEVERE VOMITING Medication List - Last Reconciled 10/04/25 by Gela Patel MD citalopram 40 mg PO DAILY ezetimibe 10 mg PO DAILY levetiracetam 500 mg PO BID losartan 50 mg PO DAILY nifedipine ER 30 mg PO DAILY warfarin 5 mg See Protocol PO DAILY Tobacco use date assessed: 10/04/25 Fall risk assessment: 2 + Falls in past year Last assessed Fall Risk: 10/04/25 Dental Screening Dental Screen Date: 10/04/25 Did you have a dental visit in the last 12 months?: No Did you have a dental problem in the last 6 months where you did not have access to dental care?: No Was dental information given to patient?: Patient has dentist HPI HPI Comments 2 History of Present Illness Details History of Present Illness The patient is a 70 year old female presenting for evaluation of left red eye, hearing problems, and management of chronic conditions. Hypertension: - Her blood pressure was noted to be gina vated during the visit. - She reports previously checking her bl ood pressure every morning but has not done so recently. - Her current antihypertensive regimen i ncludes losartan 50 mg and nifedipine 30 mg. Conjunctivitis: - The patient reports the onset of blood shot eyes two days ago, which are slightly itchy. - She denies any weeping from the eyes. - She has unan-vgf-nthylae eye drops at home. Hearing Loss: - The patient reports worsening hearing, which now affects both ears. - She has a history of Meniere's disease , which previously affected only one ear. - She requested a referral for a hearing test. History of Pulmonary Embolism: - The patient is on warfarin for a histo ry of a pulmonary embolism. - Her INR is monitored in [place]. - She is under the care of Dr. Hussein qureshi has a follow-up appointment in November, at which time a CT scan of the chest is also scheduled. Chronic Kidney Disease: - Recent lab results indicated that her kidney function is slightly compromised. - This finding has been present since Ma y of this year. History of Intracranial Hemorrhage and epilepsy - The patient has a history of a brain b leed that occurred after a fall. - She takes Keppra, which is managed by her neurologist. at [facility] Anxiety and Depression: - The patient reports that her symptoms of anxiety and depression come and go, but she feels she is doing better than she has been in the past. Medical History: - Hypertension - Meniere's disease - History of intracranial hemorrhage sec ondary to a fall - History of pulmonary embolism - Chronic kidney disease, mild - History of liver inflammation, resolve d - History of tubular adenoma on colonosc opy - Anxiety and depression - Impaired balance chronic Social History: - Functional Status: The patient reports chronic shortness of breath when walking down stairs and has impaired balance, noting a history of falls, though she feels her balance has improved. Health Maintenance - Mammogram: The patient is due for a wv mmogram, having rescheduled her screening from last year. - Colonoscopy: Last colonoscopy was in , which found a tubular adenoma. She was due for a repeat this year and needs to schedule one. - Hearing Test: A hearing test was reque sted due to worsening bilateral hearing loss. - Blood Pressure Monitoring: Advised to resume home blood pressure monitoring. [place] of Care The patient is followed by a neurologist for management of Keppra and by Dr. Savage (Hematology) for management of warfarin. [facility] Medical History Skin lesion HTN (hypertension) CAD (coronary artery disease) On anticoagulant therapy History of Meniere's syndrome Anxiety Depression Elevated cholesterol Myocardial infarction Surgical History History of colonoscopy Stented coronary artery Hx of cholecystectomy History of superficial parotidectomy History of section Family History Father Mesothelioma Kidney stones Mother HTN (hypertension) Diverticulitis Brother HTN (hypertension) Daughter No problems noted. Maternal Grandfather No problems noted. Maternal Grandmother No problems noted. Paternal Grandfather No problems noted. Paternal Grandmother No problems noted. 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 1. Little interest or pleasure in doing things: not at all 2. Feeling down, depressed, or hopeless: not at all 3. Trouble falling or staying asleep, or sleeping too much: not at all 4. Feeling tired or having little energy: not at all 5. Poor appetite or overeating: not at all 6. Feeling bad about yourself - or that you are a failure or have let yourself or your family down: not at all 7. Trouble concentrating on things, such as reading the newspaper or watching television: not at all 8. Moving or speaking so slowly that other people could have noticed. Or the opposite - being so fidgety or restless that you have been moving around a lot more than usual: not at all 9. Thoughts that you would be better off or of hurting yourself in some way: not at all Total score: 0 Depression Screening Interpretation: Negative Depression Screening Done: Yes 15034 - PHQ-9 Billing: Yes Source: Developed by Drs. Abad Manuel, Chetna Boudreaux, Dominic Pena and colleagues, with an educational carol from [employer]. Thrive Questionnaire Date Thrive assessed: 10/04/25 What is your living situation today?: I have a steady place to live Within the past 12 months, did the food you bought not last and you didn't have the money to get more?: Never true Within the past 12 months, did you worry whether your food would run out before you got money to buy more?: Never true Do you have trouble paying for medicines?: No Do you have trouble getting transportation to medical appointments?: No Do you have trouble paying your heating and electricity bill?: No Do you have trouble taking care of your child, family member or friend?: No Do you have trouble with day-to-day activities such as bathing, preparing meals, shopping, managing finances, etc.?: No Are you currently unemployed and looking for a job?: No Are you interested in more education?: No Please select the resources that you would like help with: None Currently or been in a relationship where the following occur: No concerns reported THRIVE Score: 0 AUDIT C Alcohol Use Questionnaire (AUDIT-C) 1. How often do you have a drink containing alcohol?: Monthly or less 2. How many drinks containing alcohol do you have on a typical day when you are drinking?: 1 or 2 3. How often do you have six or more drinks on one occasion?: Never Total Score: 1 Score Reviewed/Action Taken: Yes IRVIN-7 AMB Questionnaire IRVIN-7 Date IRVIN - 7 assessed: 10/04/25 Feeling nervous, anxious, or on edge: 0 = Not at all Not being able to stop or control worryin = Not at all Worrying too much about different things: 0 = Not at all Trouble relaxin = Not at all Being so restless that it is hard to sit still: 0 = Not at all Becoming easily annoyed or irritable: 0 = Not at all Feeling afraid as if something awful might happen: 0 = Not at all Total IRVIN-7 score (0-4 normal; 5-9 mild; 10-14 moderate; 15-21 severe): 0 Source: Developed by Drs. Abad Manuel, Chetna Boudreaux, Dominic Pena and colleagues, with an educational carol from [employer]. IRVIN-7 Assessment Billing IRVIN-7 Assessment Tool: IRVIN-7 Assessment 95378 Review of Systems Const Denies chills, Denies fever(s) and Denies headache(s) Eyes Denies blurry vision ENT Denies headache(s), Denies nasal discharge, Denies nasal obstruction, Denies odynophagia and Denies sinus pain Card Denies chest pain at rest and Denies chest pain with activity Resp Denies cough and Denies hemoptysis GI Denies diarrhea, Denies odynophagia, Denies vomiting and Denies hematemesis Reports as per HPI Skin/Breast Reports as per HPI Neuro Denies Neuro-related abnormal movements, Denies Abnormal speech present and Denies headache(s) Psych Denies paranoia Endo Reports as per HPI Ricardo/Lymph Reports as per HPI Aller/Immun Reports as per HPI Physical exam (Primary Care) Vital Signs: Last Vital Signs Temp 98.2 F 10/04/25 13:25 Pulse 74 10/04/25 13:25 Resp 17 10/04/25 13:25 BP 146/90 H 10/04/25 13:25 Pulse Ox 98 10/04/25 13:25 Oxygen Delivery Method Room Air 10/04/25 13:25 BMI result Body Mass Index 33.4 Tobacco/Smoking Status: Tobacco use Status Tobacco use date assessed 10/04/25 10/04/25 13:33 Patient Tobacco Use Status Former Tobacco user (10/202410/04/25 13:33 - cigaretts 1 p q 3 days ) Tobacco use type Cigarette 10/04/25 13:33 e-Cigarette/Vaping Use Never Used 10/04/25 13:33 PHQ-9: PHQ-9 Score PHQ-9: Total score 0 10/04/25 13:33 Depression Screening Interpretation: Negative Thrive Assessment: Date of Thrive Assessment Date Thrive assessed 10/04/25 10/04/25 13:33 Currently or been in a relationship where the following occur: No concerns reported Narrative Diagnostic results - Labs: Recent blood tests show no anemia, slightly compromised kidney function (stable since February of this year), and normal liver function (previously inflamed). - Imaging: A CT scan of the chest is scheduled for November. - Procedures: Her last colonoscopy in 2019 revealed a tubular adenoma. . Const General: cooperative, comfortable and no acute distress Orientation/consciousness: patient oriented x3 HENMT Head: Yes normocephalic and Yes atraumatic Eyes Other: mild conj injection left eye Pupils: Equal, round and reactive pupils present EOM: EOMs intact bilaterally Neck Neck: Yes supple and No lymphadenopathy Thyroid: Thyroid normal Resp Effort & Inspection: normal respiratory effort and able to speak in complete sentences Auscultation: clear to auscultation bilaterally Cardio Heart sounds: S1 normal heart sound present and S2 normal heart sound present GI Palpation (GI): Soft to palpation and nontender Auscultation: normal bowel sounds General: Yes no CVA tenderness Back/Spine/Pelvis Back: no CVA tenderness Skin General skin exam: elasticity normal and turgor normal Neuro General: patient oriented x3 and gait normal Cranial nerves: Yes Equal, round and reactive pupils present Speech: No Abnormal speech present Coordination: Romberg test negative Extrem General: Yes normal exam except as noted and No edema Coding Level of Care Code Est Pt Level 4 (18706) Est Pt Prev Care >65y(63839) Diagnoses Encounter for general adult medical examination with abnormal findings Z00. Primary hypertension I10 Hypertension type: primary hypertension Nonintractable epilepsy without status epilepticus, unspecified epilepsy type G40.909 Epilepsy type: unspecified Intractability: not intractable Status epilepticus: without status epilepticus Tubular adenoma D36.9 Hearing difficulty of both ears H91.93 Laterality: bilateral Class 2 severe obesity due to excess calories with serious comorbidity and body mass index (BMI) of 35.0 to 35.9 in adult E66.01; Z68.35 Obesity classification: adult class 2 (BMI 35 - 39.9) Serious obesity comorbidity presence: with serious comorbidity Body mass index: BMI 35.0-35.9 Pre-diabetes R73.03 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.01 Lipid disorder E78.9 Stented coronary artery Z95.5 Recurrent major depressive disorder, in full remission F33.42 Active/Remission status: in full remission History of pulmonary embolism Z86.711 History of subdural hematoma Z86.79 Additional Codes IRVIN-7 Assessment Billing - IRVIN-7 Assessment Tool: IRVIN-7 Assessment 95739 ([id number]) PHQ-9 - 02554 - PHQ-9 Billing: Yes ([id number]) Assessment & Plan Assessment & Plan (1) Encounter for general adult medical examination with abnormal findings: Code(s): Z00.01 - Encounter for general adult medical examination with abnormal findings Category: Medical (2) HTN (hypertension): Code(s): I10 - Essential (primary) hypertension Category: Medical Qualifiers: Hypertension type: primary hypertension Qualified Code(s): I10 - Essential (primary) hypertension (3) Epilepsy: Code(s): G40.909 - Epilepsy, unspecified, not intractable, without status epilepticus Category: Medical Qualifiers: Epilepsy type: unspecified Intractability: not intractable Status epilepticus: without status epilepticus Qualified Code(s): G40.909 - Epilepsy, unspecified, not intractable, without status epilepticus (4) Tubular adenoma: Comment: 65-year-old female follows up after index screening colonoscopy polypectomy, pathology tubular adenoma repeat colonoscopy 5 years -2024 Code(s): D36.9 - Benign neoplasm, unspecified site Category: Medical (5) Difficulty hearing: Code(s): H91.90 - Unspecified hearing loss, unspecified ear Category: Medical Qualifiers: Laterality: bilateral Qualified Code(s): H91.93 - Unspecified hearing loss, bilateral (6) Obesity due to excess calories: Code(s): E66.09 - Other obesity due to excess calories Category: Medical Qualifiers: Obesity classification: adult class 2 (BMI 35 - 39.9) Serious obesity comorbidity presence: with serious comorbidity Body mass index: BMI 35.0-35.9 Qualified Code(s): E66.01 - Morbid (severe) obesity due to excess calories; Z68.35 - Body mass index [BMI] 35.0-35.9, adult (7) Pre-diabetes: Code(s): R73.03 - Prediabetes Category: Medical (8) Hx of mcc use of blood thinners: Code(s): Z79.01 - detention (current) use of anticoagulants Category: Medical (9) Lipid disorder: Code(s): E78.9 - Disorder of lipoprotein metabolism, unspecified Category: Medical (10) Stented coronary artery: Comment: status post stenting of the OM and diagonal branch in August 2016 for ACS Code(s): Z95.5 - Presence of coronary angioplasty implant and graft Category: Surgical (11) Major depression, recurrent: Code(s): F33.9 - Major depressive disorder, recurrent, unspecified Category: Medical Qualifiers: Active/Remission status: in full remission Qualified Code(s): F33.42 - Major depressive disorder, recurrent, in full remission (12) History of pulmonary embolism: Code(s): Z86.711 - Personal history of pulmonary embolism Category: Medical (13) History of subdural hematoma: Code(s): Z86.79 - Personal history of other diseases of the circulatory system Category: Medical Plan Patient Instructions - You will be contacted to schedule a hearing test. - Please schedule your mammogram and colonoscopy. - Start checking your blood pressure at home again. - If the top number of your blood pressure is consistently above 140, start taking your losartan medicine two times a day (morning and night) and let us know. - You can use uzhb-rga-rrxyhsd eye drops for the redness in your eyes. - At your appointment with Dr. Savage in November, please ask her how long you will need to take the warfarin (Coumadin) blood thinner. - Follow up here in about four months and remember to bring your blood pressure log with you. Orders: Referrals Audiology Referral H91.90 - Unspecified hearing loss, unspecified ear Gastroenterology Referral D36.9 - Benign neoplasm, unspecified site
== END 2025-10-04 13:56 | disposition home or self-care (01) ==
LOC: HO.HMCC 13:23
PROVIDERS: PCP Internal Medicine; Visit Provider Internal Medicine
DX: Z00.01 Encounter for general adult medical examination with abnormal findings (principal); I10 Essential (primary) hypertension; G40.909 Epilepsy, unspecified, not intractable, without status epilepticus; H91.93 Unspecified hearing loss, bilateral; E66.812 Obesity, class 2; Z68.35 Body mass index [BMI] 35.0-35.9, adult; R73.03 Prediabetes; Z79.01 Long term (current) use of anticoagulants; E78.9 Disorder of lipoprotein metabolism, unspecified; Z95.5 Presence of coronary angioplasty implant and graft

== ENCOUNTER → 2025-10-04 13:22 | Outpatient (BNVA) | payer MEDICARE, SELFPAY | PROVIDERS: PCP Internal Medicine; Visit Provider Internal Medicine | DX: Z00.01 Encounter for general adult medical examination with abnormal findings (principal); I12.9 Hypertensive chronic kidney disease with stage 1 through stage 4 chronic kidney disease, or unspecified chronic kidney disease; N18.9 Chronic kidney disease, unspecified; H91.93 Unspecified hearing loss, bilateral; H10.9 Unspecified conjunctivitis; G40.909 Epilepsy, unspecified, not intractable, without status epilepticus; E66.01 Morbid (severe) obesity due to excess calories; Z68.35 Body mass index [BMI] 35.0-35.9, adult; R73.03 Prediabetes; E78.9 Disorder of lipoprotein metabolism, unspecified; F33.42 Major depressive disorder, recurrent, in full remission; Z86.79 Personal history of other diseases of the circulatory system; H81.09 Meniere's disease, unspecified ear; R26.89 Other abnormalities of gait and mobility; Z13.31 Encounter for screening for depression; Z13.39 Encounter for screening examination for other mental health and behavioral disorders; Z79.01 Long term (current) use of anticoagulants; Z86.0101 Personal history of adenomatous and serrated colon polyps; Z86.711 Personal history of pulmonary embolism; Z88.5 Allergy status to narcotic agent; Z87.891 Personal history of nicotine dependence; Z95.5 Presence of coronary angioplasty implant and graft; Z87.820 Personal history of traumatic brain injury; Z91.81 History of falling | CPT/HCPCS: 96127; 99397 ==